=== PATIENT | female | born 1940 | race Asian ===

== ENCOUNTER → 2024-01-01 16:53 | Outpatient (REF) | payer OTHER, SELFPAY | LOC: RAD 16:53 | PROVIDERS: ATTENDING PHYSICIAN Nurse Practitioner | DX: M25.561 Pain in right knee (principal) | CPT/HCPCS: 73564 ==

== ENCOUNTER → 2024-04-22 10:41 | Outpatient (REF) | payer OTHER, SELFPAY | LOC: RAD 10:41 | PROVIDERS: ATTENDING PHYSICIAN Family Medicine; OTHER PHYSICIAN Orthopaedic Surgery | DX: M25.511 Pain in right shoulder (principal) | CPT/HCPCS: 73030 ==

== ENCOUNTER 2024-04-25 10:22 | Emergency (ER) | payer OTHER, SELFPAY ==
[2024-04-25 10:40] VITALS: BP 123/65
--- NOTE | 2024-04-25 11:53 | ED.GENMED ---
History of Present Illness
General
Chief Complaint: Fall
Source: patient
Time Seen by Provider: 04/25/24 11:34
History of Present Illness
History of Present Illness:
54-year-old female brought to the emergency by EMS for evaluation after suffering a fall at home. Patient was brushing her teeth when she turned away from the sink evidently lost her balance causing her to fall. She has pain in her left shoulder
and her coccyx. No head strike. No loss of consciousness. Patient is right-hand dominant.
Past History
Past History
ED Past Medical History: Hypercholesterolemia, IDDM and Other (sciatica)
ED Past Surgical History: Appendectomy
Social History
Tobacco: Non-smoker
Personal:
Living: alone
Family History
Family History: Other (Noncontributory)
Phy Exam
Physical Exam
Physical Exam:
General: Awake, Alert, Oriented X3. No acute distress.
Vitals: unremarkable
Head: Atraumatic
Eyes: Pupils equal, EOMI
Throat: Airway intact, no exudates
Neck: Trachea midline
Lungs: Clear and equal b/l
Heart: Regular rate, no murmurs
Abd: Soft, Nontender, No pulsatile mass
Neuro: non-focal
Skin: Warm, dry, no rash
Extremities: pulses equal b/l, no edema
Course
Orders/Labs/Results
Orders:
Orders
04/25/24 11:49
Morphine Sulfate 2 mg IV NOW STA
CR Humerus - Left Min 2 Views* Urgent
Comment:
Reason For Exam: pain after a fall
04/25/24 11:52
Pelvis, 1 or 2 Views CR [CR Pelvis - 1 Or 2 Views ] Urgent
Comment:
Reason For Exam: pain after a fall
04/25/24 13:05
Sling Left-Treatment ONCE
04/25/24 13:44
Morphine Sulfate 4 mg IV NOW STA
Vital Signs
Initial and Last Documented VS:
Initial Vital Signs
Temp Pulse Resp BP Pulse Ox
98.0 F 71 16 123/65 98
04/25/24 10:40 04/25/24 10:40 04/25/24 10:40 04/25/24 10:40 04/25/24 10:40
Last Documented Vital Signs
Temp Pulse Resp BP Pulse Ox
98.0 F 68 16 116/78 99
04/25/24 10:40 04/25/24 12:37 04/25/24 12:37 04/25/24 12:37 04/25/24 12:37
MDM/Problems Addressed
Differential Diagnosis Includes:
shoulder dislocation, prox humerus fx, pelvic fx
MDM/Problems Addressed:
Patient presents with left shoulder pain. X-ray shows a proximal humerus fracture. Neurovascularly intact. Patient [id number]. She has very supportive family. They would like to take her home. We discussed rehab or hospitalization for
supportive care with a feel they can provide excellent care at home. Patient be placed in a sling. She has used tramadol in the past for pain and it has helped her pain and she has not had significant side effects. Therefore we will continue with
this as the patient has had significant nausea and vomiting with opiates in the past.
*Radiology
Radiology exam reviewed: preliminary read by ED provider (Proximal humerus fracture)
*Pulse Oximetry
Patient hypoxic: no
*Critical Care Note
Total Time (30-74mins, 75-104mins- exclusive of procedures): Not Applicable
Patient Management
Social determinants of health affecting care: Strong social support
ED Attending Note
-
Portions of this chart may have been created with voice recognition software.� Occasional wrong word or��sound alike� substitutions may have occurred due to the inherent limitations of voice recognition software.
Discharge Plan
Departure
Patient Disposition: Home (Routine Discharge)
Date of Disposition: 04/25/24
Time of Disposition: 13:45
Patient with high blood pressure during this ER visit?: No
Condition: Good
Discharge Problem:
Fracture of proximal end of humerus
Instructions: Upper Arm Fracture ED
Prescriptions:
New
tramadol 50 mg tablet
50 mg PO TID PRN (Reason: Pain) Qty: 15 0RF
No Action
aspirin 81 MG tablet,chewable
81 mg PO HS
Levemir U-100 Insulin 1,000 UNITS/10 ML solution
8 units SC DAILY
Patient Comments:
morning
simvastatin 40 MG tablet
40 mg PO HS
levothyroxine 25 MCG tablet
25 mcg PO DAILY
PreserVision AREDS-2 1 EACH capsule
1 ea PO BID
insulin aspart U-100 [Novolog FlexPen U-100 Insulin] 100 unit/mL (3 mL) insulin pen
8 unit SC DAILY
Motegrity 2 mg Tablet
2 mg PO DAILY
magnesium citrate 125 mg Capsule
125 mg PO HS
gabapentin 300 MG capsule
300 mg PO TID
calcium carbonate-vitamin D3 [Calcium 600 + D(3)] 600 mg-10 mcg (400 unit) Tablet
1 tab PO DAILY
tramadol 50 mg Tablet
25 mg PO Q6HPRN PRN (Reason: moderate pain) Qty: 14 0RF
amoxicillin-pot clavulanate 875-125 mg Tablet
1 tab PO Q12 3 Days Qty: 6 0RF
Referrals:
Vinny Marquez MD [Active] -
Sanchez Marshall MD [Family Provider] -
Interventions
Interventions:
*Risk Screen - Suicide Last Done: 04/25/24 10:40
*General Assessment Last Done: 04/25/24 12:33
*Neglect/Abuse Screening Last Done: 04/25/24 10:40
ED- Fall Risk Assessment Last Done: 04/25/24 12:28
ED-Musculoskeletal Assessment Last Done: 04/25/24 12:28
ED- Neurological Assessment Last Done: 04/25/24 12:28
ED-Skin Assessment Last Done: 04/25/24 12:28
Discharge Date and Time
Print Language: IRISH
[2024-04-25] MEDS: MORPHINE SULFATE 2 MG IV (11:55)
[2024-04-25 12:37] VITALS: BP 116/78
[2024-04-25] MEDS: MORPHINE SULFATE 4 MG IV (13:53)
== END 2024-04-25 14:07 | disposition home or self-care (01) ==
LOC: EMR 10:22
PROVIDERS: EMERGENCY PHYSICIAN Emergency Medicine; FAMILY PHYSICIAN Family Medicine
DX: S42.292A Other displaced fracture of upper end of left humerus, initial encounter for closed fracture (principal); M53.3 Sacrococcygeal disorders, not elsewhere classified; W19.XXXA Unspecified fall, initial encounter; E78.00 Pure hypercholesterolemia, unspecified; E11.9 Type 2 diabetes mellitus without complications; Z79.4 Long term (current) use of insulin
CPT/HCPCS: 99284; 96374; 96376; 72170; 73060

== ENCOUNTER 2024-12-20 15:14 | Inpatient (IN) | payer OTHER, SELFPAY ==
[2024-12-20] VITALS (15 sets, daily range): BP systolic 95–143; BP diastolic 43–57; BMI 15.9
[2024-12-20 07:53] LABS: Glucose - Point of Care 313 mg/dl (70-99)
--- NOTE | 2024-12-20 07:57 | ED.GENMED ---
History of Present Illness
General
Chief Complaint: Weakness
Source: patient and family
Time Seen by Provider: 12/20/24 07:41
History of Present Illness
History of Present Illness:
The patient is an 85-year-old female who initially presented with fatigue and decreased oral intake beginning on the Sunday a week ago, following a dental procedure. According to her family member, she had a dental procedure on Sunday and received
local anesthesia, which seemed to exhaust her as she was tired subsequently. Since then, she has been progressively consuming less water and food and has been wanting to sleep more. She mainly gets up in the morning to brush her teeth and then
returns to bed shortly thereafter.
The patient also reports hallucinations, having seen a 'little girl' last night in her room. She mentions feeling weak but denies any pain other than in her shoulder, which had a previously broken shoulder related to a rotator cuff injury. The
shoulder pain had increased in the last few days. She reports urinating only twice yesterday, though her urine is described as yellow and of small amount. Her family member notes a five-pound weight loss, going from 85 lbs on the to 80 lbs
recently.
Current medications include phleophtaroxine, calcium, vitamin D, high-dose vitamins, gabapentin, Zocor, aspirin, and maxitrate. Metasapine was stopped recently
Past History
Past History
ED Past Medical History: Hypercholesterolemia, IDDM and Other (sciatica)
ED Past Surgical History: Appendectomy
Social History
Tobacco: Non-smoker
Personal:
Living: alone
Family History
Family History: Other (Noncontributory)
Phy Exam
Physical Exam
Physical Exam:
General: Awake, Alert, Oriented X3. No acute distress. Appears very thin, chronically ill
Vitals: unremarkable
Head: Atraumatic
Eyes: Pupils equal, EOMI
Throat: Airway intact, no exudates, dry mucosa
Neck: Trachea midline
Lungs: Clear and equal b/l
Heart: Regular rate, no murmurs
Abd: Soft, Nontender, No pulsatile mass
Neuro: Nonfocal
Skin: Warm, dry, no rash
Extremities: pulses equal b/l, no edema
Course
Orders/Labs/Results
Orders:
Orders
12/20/24 07:56
0.9% Sodium Chloride 500 ml [Nss] 500 ml IV BOLUS
12/20/24 07:57
Electrocardiogram (*1) Urgent
Reason for Study: Fatigue / Weakness
EKG- Treatment ONCE
12/20/24 08:27
B-Hydroxybutyrate Urgent
Comment: ADD ON
Complete Blood Count/With Diff Urgent
Comprehensive Metabolic Panel Urgent
Lipase Urgent
TSH Reflex To Free T4 Urgent
12/20/24 08:56
Albuterol Sulfate [Ventolin Nebules] 5 mg INH R NOW STA
Calcium Gluconate 1,000 mg IV NOW STA
Dextrose 50%-Water [Dextrose 50% Syringe] 12.5 grams IV [id number] PRN
Insulin Human Regular [Novolin R] 10 units IV NOW STA
Sodium Zirconium Cyclosilicate [Lokelma] 10 gram PO NOW STA
12/20/24 08:57
Bedside Glucose PRE IV Insulin- HyperK+ NOW
12/20/24 09:00
Add On- LAB Urgent
Tests Added?: beta hydroxybuterate
12/20/24 09:37
Venous Blood Gas Urgent
%Oxygen/Room Air: ra
12/20/24 09:38
0.9% Sodium Chloride 500 ml [Nss] 500 ml IV BOLUS
12/20/24 10:27
Bedside Glucose POST IV Insulin- HyperK+ Q1HX2,Q2HX2
12/20/24 10:30
Dextrose 5%/Water 1000 ml [D5w] 1,000 ml Sodium Bicarbonate 150 meq IV 150 mls/hr
12/20/24 11:22
Electrocardiogram (*1) Urgent
Reason for Study: Fatigue / Weakness
EKG- Treatment ONCE
12/20/24 12:01
Potassium Urgent
Comment: draw 2 hours after regular insulin IV administration
12/20/24 12:20
Bedside Glucose- Treatment Q1H
IV Insert/Care/Rem.- Treatment PRN
Reg Insulin 100 Units/100 ml [Novolin R Insulin Infusion] 100 units in 100 ml IV NOW
12/20/24 12:44
Reg Insulin 100 Units/100 ml [Novolin R Insulin Infusion] 100 units in 100 ml IV NOW
12/20/24 13:42
Basic Metabolic Panel Q2H
Urinalysis Reflex To Culture Urgent
Date Specimen was Collected: 12/20/24
Time Specimen was Collected: 13:40
Urine Microscopic Reflex Cult Urgent
12/20/24 14:04
Admit/Transfer Patient As Directed
Co-Sign Provider:
Level of Care: Inpatient admission
Assign to:: ICU
Physician / Group: [facility]
Diagnosis: DKA
Reason for Hospitalization: See progress note
Expected length of stay greater than two midnights?: Yes
ELOS- Estimated Length of Stay in days: 4
I certify the patient meets the requirements for IP care: Yes
12/20/24 14:05
PRN Pain Medication Management As Directed
May give lesser potent ordered pain med per pt: Yes
preference::
Protocol:: Medication orders for pain may be administered in a
manner that supports deferring to patient preference
when the pt is:
- Requesting an ordered lesser potent pain medication.
Least to most potent pain medications are defined
as: acetaminophen < NSAID < tramadol < opioids
(morphine, oxycodone, hydromorphone).
- Requesting a lesser dose of the same medication IF
ORDERED.
- Requesting a less intrusive route of administration
if both routes are prescribed by the provider (PO <
IV).
12/20/24 14:08
Code Status As Directed
Resuscitation Status: Full Code
12/20/24 14:30
Basic Metabolic Panel Q2H
12/20/24 16:30
Basic Metabolic Panel Q2H
Abnormal Lab Results
12/20/24 12/20/24 12/20/24
07:51 08:27 09:37
WBC 11.4 H 10^3/uL
(4.8-10.8)
MPV 10.8 H fL
(7.4-10.4)
Absolute Neuts (auto) 9.7 H 10^3/uL
(1.4-6.5)
Neutrophils % 85.3 H %
(42.2-75.2)
Lymphocytes % 11.3 L %
(20.5-51.1)
VBG pH 7.15 L*
(7.32-7.43)
VBG pCO2 27 L mmHg
(35-48)
VBG pO2 52 H mmHg
(30-50)
VBG HCO3 9.4 L mmol/L
(22-27)
Sodium
Potassium 7.3 H* mmol/L
(3.5-5.1)
Chloride 114 H mmol/L
(98-107)
Carbon Dioxide 9 L* mmol/L
(22-30)
BUN 83 H mg/dl
(7-17)
Creatinine 1.5 H mg/dL
(0.6-1.0)
Glucose 388 H mg/dl
(70-99)
AST 61 H U/L
(14-36)
ALT 84 H U/L
(0-35)
Urine Ketones
Ur Occult Blood Reflex
Urine RBC
Urine Bacteria (Reflex)
Urine Glucose
Urine Albumin (Reflex)
B-Hydroxybutyrate 0.53 H mmol/L
(0.02-0.27)
POC Glucose 313 H mg/dl
(7099)
12/20/24 12/20/24 12/20/24
10:13 11:59 13:32
WBC
MPV
Absolute Neuts (auto)
Neutrophils %
Lymphocytes %
VBG pH
VBG pCO2
VBG pO2
VBG HCO3
Sodium
Potassium
Chloride
Carbon Dioxide
BUN
Creatinine
Glucose
AST
ALT
Urine Ketones
Ur Occult Blood Reflex
Urine RBC
Urine Bacteria (Reflex)
Urine Glucose
Urine Albumin (Reflex)
B-Hydroxybutyrate
POC Glucose 297 H mg/dl 416 H mg/dl 387 H mg/dl
() (99) (70-99)
12/20/24 12/20/24
13:42 14:33
WBC
MPV
Absolute Neuts (auto)
Neutrophils %
Lymphocytes %
VBG pH
VBG pCO2
VBG pO2
VBG HCO3
Sodium 134 L mmol/L
(135-145)
Potassium 5.2 H D mmol/L
(3.5-5.1)
Chloride 111 H mmol/L
(98-107)
Carbon Dioxide
BUN 72 H mg/dl
(7-17)
Creatinine 1.3 H mg/dL
(0.6-1.0)
Glucose 485 H* mg/dl
(70-99)
AST
ALT
Urine Ketones 1+ A
(Negative)
Ur Occult Blood Reflex 2+ A
(Negative)
Urine RBC 3-6 A /HPF
(0-2)
Urine Bacteria (Reflex) Few A
(Negative)
Urine Glucose 3+ A
(Negative)
Urine Albumin (Reflex) 2+ A
(Neg - Trace)
B-Hydroxybutyrate
POC Glucose 382 H mg/dl
(70-99)
12/20/24 08:27
Vital Signs
Initial and Last Documented VS:
Initial Vital Signs
Pulse Resp BP Pulse Ox
83 18 131/51 100
12/20/24 07:07 12/20/24 07:07 12/20/24 07:07 12/20/24 07:07
Last Documented Vital Signs
Temp Pulse Resp BP Pulse Ox
97.8 F 94 22 143/57 100
12/20/24 08:35 12/20/24 14:00 12/20/24 14:00 12/20/24 14:00 12/20/24 12:30
MDM/Problems Addressed
Differential Diagnosis Includes:
The Differential Diagnosis includes, in no particular order and is not limited to:
1. Dehydration
2. Anemia
3. Electrolyte imbalance
4. Urinary tract infection
5. Depression
6. Medication side effects
7. Renal insufficiency
8. Hypoglycemia
9. Neurological conditions (e.g., transient ischemic attack)
10. Malnutrition
MDM/Problems Addressed:
The patient presents with severe dehydration, significantly elevated potassium levels, and high blood glucose. . Plans involve administering medication to reduce potassium levels, providing IV fluids, and hospital admission for comprehensive
management. Elevated potassium is likely related to impaired renal function exacerbated by dehydration. The patient is at risk for diabetic ketoacidosis, and insulin therapy has been withheld recently due to minimal food intake and historical risk
of hypoglycemia. Hospitalization will include monitoring of bloodwork and adjustment of treatment based on hydration status, renal function, and overall clinical improvement.
IV bicarbonate infusion started given her significant metabolic acidosis. Insulin infusion started as the dextrose from her bicarbonate drip is driving her glucose higher
No obvious infectious source hold on antibiotics.
*Pulse Oximetry
Patient hypoxic: no
Comment: 97
*EKG
Interpreted by ED Provider?: Yes
Interpretation: abnormal
Heart Rate: 79
Rate: normal
Rhythm: sinus
Gooding: normal axis
Interval: normal interval
QRS Pattern: normal QRS
Ischemia: other (Mildly peaked T waves, nonspecific T wave changes)
*Beaming Machine Operator Interpretation
Rate: normal
Interpretation: normal
Rhythm: sinus
*Critical Care Note
Total Time (30-74mins, 75-104mins- exclusive of procedures): 45 min
comment:
Critical care statement: A total of 45 minutes of critical care time was provided for this patient. This includes management of unstable vital signs, evaluation of the patient at bedside, reviewing the patient's pertinent medical records, discussion
with consultants, review of old EKGs and review of pertinent medical records. This time with separate from time utilized to perform the aforementioned documented procedures
ED Attending Note
-
Portions of this chart may have been created with voice recognition software.� Occasional wrong word or��sound alike� substitutions may have occurred due to the inherent limitations of voice recognition software.
Discharge Plan
Departure
Patient Disposition: Admit
Date of Disposition: 12/20/24
Time of Disposition: 09:39
Admit to: IMU
Presentation/result/management discussed w/ accepting MD/DO: Hospitalist
Condition: Serious
Discharge Problem:
Acute renal failure (ARF), Acute hyperkalemia, Acute dehydration
Prescriptions:
No Action
aspirin 81 MG tablet,chewable
81 mg PO QPM
levothyroxine 25 MCG tablet
25 mcg PO DAILY
PreserVision AREDS-2 1 EACH capsule
1 ea PO BID
insulin aspart U-100 [Novolog FlexPen U-100 Insulin] 100 unit/mL (3 mL) insulin pen
4 unit SC DAILY
Patient Comments:
family stopped giving her all insulins
prucalopride [Motegrity] 2 mg Tablet
2 mg PO DAILY
magnesium citrate 125 mg Capsule
125 mg PO QPM
gabapentin 300 MG capsule
300 mg PO BID
calcium carbonate-vitamin D3 [Calcium 600 + D(3)] 600 mg-10 mcg (400 unit) Tablet
1 tab PO DAILY
polyethylene glycol 3350 17 gram Powder In Packet
17 g PO QPM
simethicone 180 mg Capsule
180 mg PO DAILYPRN PRN (Reason: gas)
acetaminophen 650 mg Tablet Extended Release
1,300 mg PO Q8HPRN PRN (Reason: mild pain)
simvastatin 20 mg Tablet
20 mg PO QPM
Visbiome 112.5 billion cell Capsule
1 cap PO DAILY
Tresiba FlexTouch U-100
6 unit SC DAILY
Patient Comments:
family has stopped giving her insulins
Referrals:
Sanchez Marshall MD [Family Provider, Family Practice]
Interventions
Interventions:
*Risk Screen - Suicide Last Done: 12/20/24 07:52
*General Assessment Last Done: 12/20/24 07:07
*Neglect/Abuse Screening Last Done: 12/20/24 07:52
*ED- Fall Risk Assessment Last Done: 12/20/24 07:52
*ED COVID-19 Vaccine History Last Done: 12/20/24 07:52
ED- Cardiac Assessment Last Done: 12/20/24 07:52
ED- Neurological Assessment Last Done: 12/20/24 07:52
ED- Pulmonary Assessment Last Done: 12/20/24 07:52
Discharge Date and Time
Print Language: ITALIAN
[2024-12-20] MEDS: NSS 500 IV ×2 (08:26→10:08)
[2024-12-20 08:47] LABS: % Basophils 0.1 % (0-2); % Eosinophils 0.2 % (0-6); % Immature Granulocytes 0.4 % (0-0.5); % Lymphocytes 11.3 % (20.5-51.1); % Monocytes 2.7 % (1.7-9.3); % Neutrophils 85.3 % (42.2-75.2); Absolute Lymphocytes 1.3 10^3/uL (1.2-3.4); Absolute Monocytes 0.3 10^3/uL (0.1-0.6); Absolute Neutrophils 9.7 10^3/uL (1.4-6.5); Hematocrit 38.5 % (37.0-47.0); Hemoglobin 12.7 g/dL (12.0-16.0); Mean Corpuscular Hgb 29.7 pg (27.0-31.0); Mean Platelet Volume 10.8 fL (7.4-10.4); Nucleated Red Blood Cells % 0 %; Platelet Count 226 10^3/uL (130-400); Red Blood Cell Count 4.28 10^6/uL (4.20-5.40); Red Cell Dist. Width 12.5 % (11.5-14.5); White Blood Cell Count 11.4 10^3/uL (4.8-10.8)
[2024-12-20 08:50] LABS: ALT (SGPT) 84 U/L (0-35); AST (SGOT) 61 U/L (14-36); Albumin 4.4 g/dl (3.5-5.0); Alkaline Phosphatase 125 U/L (38-126); Blood Urea Nitrogen 83 mg/dl (7-17); Calcium 10.1 mg/dl (8.4-10.2); Carbon Dioxide 9 mmol/L (22-30); Chloride 114 mmol/L (98-107); Estimated Creatinine Clearance 16 ml/min; Glucose 388 mg/dl (70-99); Lipase 272 U/L (23-300); Potassium 7.3 mmol/L (3.5-5.1); Sodium 135 mmol/L (135-145); Total Bilirubin 0.6 mg/dl (0.2-1.3); Total Protein 7.2 g/dl (6.3-8.2); eGFR 33.73
[2024-12-20 09:16] LABS: TSH Reflex To Free T4 3.48 uIU/ml (0.47-4.68)
[2024-12-20] MEDS: LOKELMA 10 GRAM PO (09:19)
[2024-12-20] MEDS: CALCIUM GLUCONATE 1000 MG IV (09:20)
[2024-12-20] MEDS: NOVOLIN R 10 UNITS IV (09:21)
[2024-12-20] MEDS: VENTOLIN NEBULES 5 MG INH (09:42)
[2024-12-20 09:44] LABS: Venous Blood Gas HCO3 9.4 mmol/L (22-27); Venous Blood Gas O2 Sat % 84.1 %; Venous Blood Gas O2 Therapy RA; Venous Blood Gas pCO2 27 mmHg (35-48); Venous Blood Gas pO2 52 mmHg (30-50)
[2024-12-20 09:45] LABS: Venous Blood Gas pH 7.15 (7.32-7.43)
[2024-12-20 09:54] LABS: B-Hydroxybutyrate 0.53 mmol/L (0.02-0.27)
[2024-12-20 10:14] LABS: Glucose - Point of Care 297 mg/dl (70-99)
[2024-12-20] MEDS: SODIUM BICARBONATE 1150 MEQ IV ×2 (10:59→16:40)
[2024-12-20 12:01] LABS: Glucose - Point of Care 416 mg/dl (70-99)
[2024-12-20 12:17] LABS: Potassium 3.9 mmol/L (3.5-5.1)
--- NOTE | 2024-12-20 12:38 | CM ---
Met with patient at bedside in the ED with son and [id number]
IMM benefit explained; form signed @ 1235
Pharmacy verified: [facility] @ [id number]
Patient lives alone in multilevel home; 2 steps to enter; stair glide to bedroom and bath w/ shower stall, grab bar
PLOF: reported she was independent with ADLs (has a cleaning service); ambulates with Rollator; no longer driving; utilizes stair glide; Son and [id number] live nearby; visit her daily and readily available
When needed, her son will stay with her in her home
Family will transport
Discharge plan to be determined; showcase trimmer will monitor for discharge needs/services
[2024-12-20] MEDS: NOVOLIN R INSULIN INFUSION 100 IV (13:22)
[2024-12-20 13:35] LABS: Glucose - Point of Care 387 mg/dl (70-99)
[2024-12-20 13:57] LABS: Urine Albumin 2+ (Neg - Trace); Urine Bilirubin Negative (Negative); Urine Character Slightly Cloudy (Clear); Urine Color Yellow; Urine Glucose 3+ (Negative); Urine Ketone 1+ (Negative); Urine Leukocyte Negative (Negative); Urine Nitrite Negative (Negative); Urine Occult Blood 2+ (Negative); Urine Urobilinogen Negative (Neg - 1+)
[2024-12-20 14:14] LABS: Blood Urea Nitrogen 72 mg/dl (7-17); Calcium 9.2 mg/dl (8.4-10.2); Chloride 111 mmol/L (98-107); Estimated Creatinine Clearance 18 ml/min; Glucose 485 mg/dl (70-99); Potassium 5.2 mmol/L (3.5-5.1); Sodium 134 mmol/L (135-145); eGFR 40.05
--- NOTE | 2024-12-20 14:15 | HPS.HSE ---
Family Physician
-
Family Physician: Sanchez Marshall
Chief Complaint
-
Weakness
History of Present Illness
Patient brought in by son because of emesis.
History is from the patient and the son.
Sunday he felt like she was in dumps to improve the spirits he took her out for a spin.
Sunday she had weird dreams. Similar problem 6 months ago when she had a shoulder fracture. She lives alone and manages okay. On Sunday she felt her T was tasting weird and then the son realized that she did not have any teabags in it.
Sunday she had dental procedure. Postprocedure she was feeling tired and family felt it may be because of Novocain. Around 5 PM she bounced back.
Sunday to the summer agents she was eating less and was drinking less.
She has gastroparesis and lately she has been burping a lot. She had no bowel movement in 2 days.
All during this. She was tired. Yesterday she had an episode of emesis and again she had an episode of emesis after breakfast that is when they got her to the hospital.
During this time Because she was not feeling well and eating they skipped insulin on more than few occasions and her blood sugars and the CGM sarita are showing as high as 350. No hypoglycemias noted.
No abdominal pain.
No fever chills.
No shortness of breath or chest pain.
No dysuria or frequency of urine.
As the Levemir is no more covered through Medicare she is now on Tresiba and the transition happened last week.
Medical History
Past Medical History
Past Medical History: Reports Other (Hyperlipidemia, hypothyroidism, probable gastroparesis, weight loss, chronic pain, cholelithiasis and choledocholithiasis, chronic kidney disease, diabetes mellitus type 2, diabetic retinopathy, anemia of chronic
disease,)
Past Surgical History: Reports Other (ERCP in the past)
Social History
Tobacco: Non-smoker
Alcohol: None
Drug: None
Family History
Family History: Other (History of gallstones in her brother.)
Allergies / Home Medications
Allergies reflects when Allergies were last updated in [facility].
Home Medications with original date entered in [facility]
Allergy/Medication List:
Allergies
Allergy/AdvReac Type Severity Reaction Status Date / Time
codeine Allergy Unknown Unknown Verified 05/15/23 09:19
Home Medications
aspirin 81 mg chewable tablet 81 mg PO HS Blood Clot Prevention/Tx 11/18/18
insulin detemir U-100 100 unit/mL subcutaneous solution (Levemir U-100 Insulin) 8 units SC DAILY Diabetes 11/18/18
levothyroxine 25 mcg tablet 25 mcg PO DAILY Thyroid 08/04/19
simvastatin 40 mg tablet 40 mg PO HS High Cholesterol 08/04/19
vit C 250 mg-vit E 90 mg-zinc 40 mg-copper 1 [id number] capsule (PreserVision AREDS-2) 1 ea PO BID Supplement 08/04/19
calcium carbonate 600 mg-vitamin D3 10 mcg (400 unit) tablet (Calcium 600 + D(3)) 1 tab PO DAILY Supplement 05/15/23
gabapentin 300 mg capsule 300 mg PO TID Pain 05/15/23
insulin aspart U-100 100 unit/mL (3 mL) subcutaneous pen (Novolog FlexPen U-100 Insulin aspart) 8 unit SC DAILY Diabetes 05/15/23
magnesium citrate 125 mg capsule 125 mg PO HS Constipation 05/15/23
prucalopride 2 mg tablet (Motegrity) 2 mg PO DAILY Constipation 05/15/23
Review of Systems
-
A 12 point ROS was completed and negative except as noted: Yes
Physical Exam
Vital Signs
Vital Signs
Temp Pulse Resp BP Pulse Ox
97.8 F 94 22 143/57 100
12/20/24 08:35 12/20/24 14:00 12/20/24 14:00 12/20/24 14:00 12/20/24 12:30
Physical Exam
General: Comfortable
Respiratory: Clear and Non Labored Respirations; No Accessory Resp Muscle Use
Cardiac: S1/S2 and Regular Rhythm; No Tachycardia
GI: Soft, Non Tender, Non Distended and Normal Bowel Sounds
Musculoskeletal: No Edema
Neuro: AO x 3
Psych: Calm
Laboratory Results
-
12/20/24 08:27
Laboratory Results
Total Bilirubin 0.6 mg/dl (0.2-1.3) 12/20/24 08:27
AST 61 U/L (14-36) H 12/20/24 08:27
ALT 84 U/L (0-35) H 12/20/24 08:27
Alkaline Phosphatase 125 U/L (38-126) 12/20/24 08:27
Lipase 272 U/L (23-300) 12/20/24 08:27
Data Reviewed
-
Lab Data: Labs Reviewed by me
Impression/Plan
-
Diabetic ketoacidosis
Patient presents with progressive symptoms of weakness tiredness and upper GI symptoms including emesis since yesterday. No obvious precipitating factor other than a dental procedure on Sunday. No clinical signs of focal infection based on
history.
Gastroparesis is in play.
Admit to ICU and start on DKA protocol and optimize hyperglycemia and acidosis and evaluate her symptoms. If all her symptoms resolve may be all her symptoms are secondary to DKA from missed doses of insulin.
Hyperkalemia-in the setting of DKA and dehydration
Patient had emergent treatments in ER. Improved potassium noted. Continue to follow.
Metabolic acidosis with normal anion
Probably multifactorial including chronic kidney disease and DKA
Continue with IV insulin and IV bicarbonate and follow.
Chronic kidney disease stage III-creatinine at her baseline.
With metabolic acidosis and hyperkalemia consult nephrology
Gastroparesis-continue the home regimen
Follow GI symptoms after correction of hypoglycemia and acidosis and if continued GI symptoms will relook from GI standpoint.
Diabetes mellitus type 2-hold home insulin and follow on a DKA protocol
Full code
[2024-12-20 14:35] LABS: Urine Bacteria Few (Negative); Urine White Cell 0-2 /HPF (0-5)
[2024-12-20 14:35] LABS: Glucose - Point of Care 382 mg/dl (70-99)
--- NOTE | 2024-12-20 14:46 | W.CON.NEPH ---
Consultation
-
Date/Time Consultation Requested: 12/20/2024 2:45 PM
Date/Time Consultation Performed: 12/20/2024 245 PM
Requesting Provider: Dr. Waldron
Performing Provider: Dr. Burgos
Reason for Consultation: Chronic kidney disease/hyperkalemia/metabolic acidosis
Medical History
-
Chief Complaint: Hyperkalemia/CKD/metabolic acidosis
History of Present Illness:
The patient is an 84-year-old female with a history of CKD who maintains a baseline creatinine of 1.3. She has a history of diabetes for which she is maintained on insulin therapy. The patient is maintained on Neurontin for chronic diabetic
neuropathy and levothyroxine for hypothyroidism. Patient was brought in by son due to emesis. Sunday he felt like she was in dumps to improve the spirits he took her out for a spin. Sunday she had weird dreams. Similar problem 6 months ago when
she had a shoulder fracture. She lives alone and manages okay. On Sunday she felt her Tea was tasting weird and then the son realized that she did not have any teabags in it.
Sunday she had dental procedure. Postprocedure she was feeling tired and family felt it may be because of Novocain. Around 5 PM she bounced back. Sunday to the summer agents she was eating less and was drinking less. She has
gastroparesis and lately she has been burping a lot. She had no bowel movement in 2 days. Yesterday she had an episode of emesis and again she had an episode of emesis after breakfast that is when they got her to the hospital.
During this time Because she was not feeling well and eating they skipped insulin on more than few occasions and her blood sugars and the CGM sarita are showing as high as 350. She has beta hydroxy butyrate positive with blood sugar of 485 on
presentation. She had a significant metabolic acidosis and nephrology was consulted. Of note the patient also has chronic kidney disease but her creatinine is stable at 1.3. She also had associated hyperkalemia on admission with a potassium level
of 7.8 which was treated medically . She is now being admitted to the intensive care unit with DKA
Past Medical History
Appendectomy
Gastroparesis
Diabetes
CKD stage IIIa with baseline creatinine 1.3
Hypothyroidism
Dyslipidemia
Social History
Tobacco: Non-Smoker
Personal:
Living: Alone
Family History
Family History: Not Pertinent
Allergies / Home Medications
Allergy/AdvReac Type Severity Reaction Status Date / Time
codeine Allergy Unknown Verified 12/20/24 07:11
niacin Allergy Unknown Verified 12/20/24 07:11
�Medication �Instructions �Recorded �Confirmed �Type
aspirin 81 mg chewable tablet 81 mg PO QPM Blood Clot 11/18/18 12/20/24 History
Prevention/Tx
levothyroxine 25 mcg tablet 25 mcg PO DAILY Thyroid 08/04/19 12/20/24 History
vit C 250 mg-vit E 90 mg-zinc 40 1 ea PO BID Supplement 08/04/19 12/20/24 History
mg-copper 1 [id number]
capsule (PreserVision AREDS-2)
calcium 600 mg (as 1 tab PO DAILY Supplement 05/15/23 12/20/24 History
carbonate)-vitamin D3 10 mcg (400
unit) tablet (Calcium 600 + D(3))
gabapentin 300 mg capsule 300 mg PO BID Pain 05/15/23 12/20/24 History
insulin aspart U-100 100 unit/mL 4 unit SC DAILY Diabetes 05/15/23 12/20/24 History
(3 mL) subcutaneous pen (Novolog
FlexPen U-100 Insulin aspart)
magnesium citrate 125 mg capsule 125 mg PO QPM Constipation 05/15/23 12/20/24 History
prucalopride 2 mg tablet 2 mg PO DAILY Constipation 05/15/23 12/20/24 History
(Motegrity)
Lactobac no.2-Bifidobac no.1-S. 1 cap PO DAILY 12/20/24 12/20/24 History
thermo 112.5 billion cell capsule
(Visbiome)
Tresiba FlexTouch U-100 6 unit SC DAILY 12/20/24 12/20/24 History
acetaminophen 650 mg 1,300 mg PO Q8HPRN PRN mild pain 12/20/24 12/20/24 History
tablet,extended release
polyethylene glycol 3350 17 gram 17 g PO QPM 12/20/24 12/20/24 History
oral powder packet
simethicone 180 mg capsule 180 mg PO DAILYPRN PRN gas 12/20/24 12/20/24 History
simvastatin 20 mg tablet 20 mg PO QPM 12/20/24 12/20/24 History
Review of Systems
-
No abdominal pain.
No fever chills.
No shortness of breath or chest pain.
No dysuria or frequency of urine.
Chronic gastroparesis
Notable for fatigue lethargy
Decreased p.o. intake
Reported hallucination
5 pound weight loss over the past 2 to 3-day
Physical Exam
Vital Signs
Vital Signs
Temp Pulse Resp BP Pulse Ox
97.8 F 94 22 143/57 100
12/20/24 08:35 12/20/24 14:00 12/20/24 14:00 12/20/24 14:00 12/20/24 12:30
Lab Results
12/20/24 08:27
WBC 11.4 10^3/uL (4.8-10.8) H 12/20/24 08:27
RBC 4.28 10^6/uL (4.20-5.40) 12/20/24 08:27
Hgb 12.7 g/dL (12.0-16.0) 12/20/24 08:27
Hct 38.5 % (37.0-47.0) 12/20/24 08:27
Plt Count 226 10^3/uL (130-400) 12/20/24 08:27
eGFR 40.05 12/20/24 13:42
Albumin 4.4 g/dl (3.5-5.0) 12/20/24 08:27
Physical Exam
General: AOx3, Nontoxic , NAD, cachectic
HEENT: PERRL, EOMI, Anicteric, Conjunctivae Clear, Ear/Nose Intact, Hearing Normal, Oropharynx Clear/dry, Dentition Intact, Facial Symmetry, Neck Supple, Neck: Trachea Midline, No JVD and No Thyromegaly, no Bruits
Respiratory: Clear to auscultation bilaterally with normal lung exersion
Cardiac: S1/S2 and Regular Rate/Rhythm
Breast: Deferred by me
Abdomen: Soft, Nontender, Nondistended, Normal Bowel Sounds and No Hepatosplenomegaly
Rectal: Deferred by Provider
Genito-urinary: No Costovertebral Tenderness
Extremities: No Clubbing, No Cyanosis and No Edema
Skin: No Rash or open lesions
Neuro: Nonfocal/Grossly Intact, CN II-XII (Intact) and Strength (Musculoskeletal exam 5 out of 5 both upper and lower extremities)
Hematologic/Lymphatic: No Cervical Lymphadenopathy, No Submandibular Lymphadenopathy and No Supraclavicular Lymphadenopathy
Psych: Mood/afflect pleasant, Insight/judgement good and Appropriate
Vascular: plus 1 pedal and radial pulses
Data Reviewed
-
Medical Tests (Nuc Med, Echo etc): Other (EKG report reviewed normal sinus rhythm at 88 bpm with nonspecific T wave abnormality)
Labs: Labs Reviewed by me (BMP CBC urinalysis)
Old Records: Reviewed (Reviewed old old records in electronic medical record from 05/20/2023 creatinine 1.3)
Assessment/Plan
-
Impression:
Hyperglycemia/HHNK vs DKA
Metabolic acidosis (AG 12)
CKD stage IIIa (1.3)
Diabetes
Hypothyroidism
Hyperlipidemia
Plan:
- Treat hyperglycemia with insulin drip
- Lack of anion gap supports HHNK however patient has beta hydroxybutyrate positive and does have ketones in the urine
- Alkaline IV fluids provide for profound metabolic acidosis which is predominantly nongapped (150meq sodium bicarbonate per liter at 150cc/hr)
- Follow-up lactic acid
- Accurate I's and O's
- Creatinine is at baseline
- Hyperkalemia medically treated and should improve with insulin drip and correction of underlying metabolic acidemia
- Patient critically ill requiring insulin drip in the setting of life-threatening hyperkalemia and hyperglycemia
- 45 minutes critical care time spent with
--- NOTE | 2024-12-20 15:14 | CON.INTV ---
Consultation
Consultation Request
Date/Time Consultation Requested: 12/20/2024 - 1399
Date/Time Consultation Performed: 12/20/2024 - 1427
Requesting Provider: Dr. Waldron
Performing Provider: Dr. Robles
Reason for Consultation: DKA
Medical History
-
Chief Complaint: Vomiting
History of Present Illness:
84-year-old female non-smoker with a past medical history of stage 3b CKD, DM type II, chronic pain syndrome, hypertension, hypothyroidism, history of meningitis as a child (age 8), stroke (2019), nephrolithiasis and history of ARNOLD inhibitor
induced cough who presents with increased sleepiness with reduced oral intake and vomiting. Over the past 3 weeks the patient's been losing weight, has been eating less and been sleeping/lethargic over the past week. She had a episode of vomiting
yesterday and then threw up after breakfast and then this is what led the family to bring the patient to the hospital. The patient has been skipping her insulin on several occasions and her DEXA, has been showing that her sugars have been as high
as 350. Patient has no fevers, chills, abdominal pain, shortness of breath or chest pain. In the ER she was breathing at 18 breaths/min, heart rate 83, BP 131/51 and saturating 100% on room air. Labs showed mild leukocytosis to 11.4, potassium
7.3, serum bicarbonate level 9, blood gas pH 7.15 with pCO2 27, glucose 388, urinalysis with +1 ketones and beta hydroxybutyrate 0.53. CXR showed no focal parenchymal opacification. In the ER she was given a total of 1 L NS 0.9%, 10 units of
regular insulin, calcium gluconate, albuterol, Lokelma 10 g and then started on an insulin infusion with a bicarb drip. Patient admitted to the ICU and plant controller services consulted for additional management/recommendations.
When I saw the patient, she said that she is feeling much better overall. Currently on room air saturating 100% with BP 115/49 and heart rate 79. She currently denies chest pain, SOB, abdominal pain, nausea, fevers or chills
PMHx: Stage 3b CKD, DM type II, chronic pain syndrome, vitamin D deficiency, hypertension, nephrolithiasis, hypothyroidism, history of ARNOLD inhibitor induced cough, history of meningitis as a child (age 8), stroke (2019), gallstones, osteopenia,
history of gastroparesis, right shoulder arthritis, bilateral knee osteoarthritis, left shoulder fracture
PSHx: Appendectomy, spinal blocks, tooth extraction, ERCP with bile duct stone extraction, laparoscopic cholecystectomy with cholangiogram, right knee steroid injection
Past Medical History
Past Medical History: Other (Above as per HPI)
Past Surgical History: Other (Above as per HPI)
Social History
Tobacco: Non-smoker
Alcohol: None
Drug: None
Family History
Family History: Diabetes (Mother) and Other (Brother: Gallstones)
Allergies / Home Medications
Allergies
Allergy/AdvReac Type Severity Reaction Status Date / Time
codeine Allergy Unknown Verified 12/20/24 07:11
niacin Allergy Unknown Verified 12/20/24 07:11
Home Medications
�Medication �Instructions �Recorded �Confirmed �Last Taken �Type
aspirin 81 mg chewable tablet 81 mg PO QPM Blood Clot 11/18/18 12/20/24 12/19/24 History
Prevention/Tx
levothyroxine 25 mcg tablet 25 mcg PO DAILY Thyroid 08/04/19 12/20/24 12/19/24 History
vit C 250 mg-vit E 90 mg-zinc 40 1 ea PO BID Supplement 08/04/19 12/20/24 12/19/24 History
mg-copper 1 [id number]
capsule (PreserVision AREDS-2)
calcium 600 mg (as 1 tab PO DAILY Supplement 05/15/23 12/20/24 12/19/24 History
carbonate)-vitamin D3 10 mcg (400
unit) tablet (Calcium 600 + D(3))
gabapentin 300 mg capsule 300 mg PO BID Pain 05/15/23 12/20/24 12/19/24 History
insulin aspart U-100 100 unit/mL 4 unit SC DAILY Diabetes 05/15/23 12/20/24 12/17/24 History
(3 mL) subcutaneous pen (Novolog
FlexPen U-100 Insulin aspart)
magnesium citrate 125 mg capsule 125 mg PO QPM Constipation 05/15/23 12/20/24 12/19/24 History
prucalopride 2 mg tablet 2 mg PO DAILY Constipation 05/15/23 12/20/24 12/19/24 History
(Motegrity)
Lactobac no.2-Bifidobac no.1-S. 1 cap PO DAILY 12/20/24 12/20/24 12/19/24 History
thermo 112.5 billion cell capsule
(Visbiome)
Tresiba FlexTouch U-100 6 unit SC DAILY 12/20/24 12/20/24 12/17/24 History
acetaminophen 650 mg 1,300 mg PO Q8HPRN PRN mild pain 12/20/24 12/20/24 12/19/24 History
tablet,extended release
polyethylene glycol 3350 17 gram 17 g PO QPM 12/20/24 12/20/24 12/19/24 History
oral powder packet
simethicone 180 mg capsule 180 mg PO DAILYPRN PRN gas 12/20/24 12/20/24 Unknown History
simvastatin 20 mg tablet 20 mg PO QPM 12/20/24 12/20/24 12/19/24 History
Review of Systems
-
History Source: Patient
All other systems: Negative unless noted
Vitals / Labs / Diagnostic Testing
Vital Signs
Temp Pulse Resp BP Pulse Ox
97.7 F 94 20 124/45 98
12/20/24 19:39 12/20/24 15:00 12/20/24 15:00 12/20/24 15:00 12/20/24 16:10
Lab Data
12/20/24 08:27
12/20/24 19:54
Laboratory Results
06/14/25
16:04
PT 15.5 H
INR 1.20
APTT 26.4
Diagnostic Testing:
Physical Exam
-
HEENT: Normocephalic and Anicteric
Cardiovascular: S1/S2, Rub (n) and Peripheral Edema (n)
Respiratory: Clear, Wheeze (n), Rales (n), Rhonchi (n) and Non-Labored Respirations
GI: Soft, Non Distended, Non Tender and Normal Bowel Sounds
Neurology: Awake, Alert and Tremors (n)
Skin: Warm and Dry
General: Respiratory Distress (n), Comfortable, Fever (n) and Chills (n)
Assessment
-
Assessment: 84-year-old female non-smoker with a past medical history of stage 3b CKD, DM type II, chronic pain syndrome, hypertension, hypothyroidism, history of meningitis as a child (age 8), stroke (2019), nephrolithiasis and history of ARNOLD
inhibitor induced cough who presents with increased sleepiness with reduced oral intake and vomiting. Over the past 3 weeks the patient's been losing weight, has been eating less and been sleeping/lethargic over the past week. She had a episode of
vomiting yesterday and then threw up after breakfast and then this is what led the family to bring the patient to the hospital. The patient has been skipping her insulin on several occasions and her DEXA, has been showing that her sugars have been
as high as 350. Patient has no fevers, chills, abdominal pain, shortness of breath or chest pain. In the ER she was breathing at 18 breaths/min, heart rate 83, BP 131/51 and saturating 100% on room air. Labs showed mild leukocytosis to 11.4,
potassium 7.3, serum bicarbonate level 9, blood gas pH 7.15 with pCO2 27, glucose 388, urinalysis with +1 ketones and beta hydroxybutyrate 0.53. CXR showed no focal parenchymal opacification. In the ER she was given a total of 1 L NS 0.9%, 10
units of regular insulin, calcium gluconate, albuterol, Lokelma 10 g and then started on an insulin infusion with a bicarb drip. Patient admitted to the ICU and plant controller services consulted for additional management/recommendations.
Chronic conditions [employer]: Stage 3b CKD, DM type II, chronic pain syndrome, vitamin D deficiency, hypertension, nephrolithiasis, hypothyroidism, history of ARNOLD inhibitor induced cough, history of meningitis as a child (age 8), stroke (2019),
gallstones, osteopenia, history of gastroparesis, right shoulder arthritis, bilateral knee osteoarthritis, left shoulder fracture
Impression:
#DM type II complicated by DKA
#Leukocytosis (likely reactive)
#Metabolic acidosis with increased anion gap due to DKA and AL
#AL on CKD
#Chronic transaminitis
#Hyperlipidemia
#Hypothyroidism
#History of gastroparesis likely due to diabetes
#CKD
#Anemia causes
Plan:
- Continue insulin infusion with q1hr POCT BG checks, avoiding hypoglycemia
- q4hr BMP, avoiding hypokalemia
- Now that BG is <250, continue with D5-1/2NS and add 20 mEq KCl into the fluids
- Once anion gap is closed x 2 (12 or less) with serum bicarbonate level at 18 or greater, and ideally blood glucose <200, then she can be bridged off insulin drip at that time
- Patient takes 6 units of Tresiba daily however this may be too low to transition her once we are ready to bridge her off the insulin drip
- Would use the past 24-hour total insulin dosage and then take 20-30% of that to figure out the dosage of glargine to bridge her off the insulin drip with, otherwise if she is underdosed then we risk her going back into DKA once off the insulin gtt
- Consult diabetic [employer]CH MECH[employer]IC
- Now that serum bicarbonate level is approaching 15, no need for bicarb drip
- Trend pH and pCO2 with serial blood gasses
- Follow-up patient has a mild WBC, she is nontoxic-appearing and afebrile with no source of infection, hence would continue to monitor off antibiotics
- Trend WBC and temperature curve
- Maintain SpO2 >90-94%
- Aspiration precautions keeping HOB >30-45�
- prn nebulized bronchodilators - not currently bronchospastic
- Incentive spirometer encouraged 10x per hour for at least 4 hrs a day
- Maintain MAP>65
- Trend LFTs
- Trend sCr and monitor UOP
- Aim to keep MAP>65-70 to help perfuse kidneys
- Replete electrolytes with K>4, Mg>2
- Trend H/H and transfuse if needed to keep Hb>7g/dL; keep plt>20k, unless there is concern for bleeding then keep plt>50k
- Once patient is ready for PO diet, need to start ADA
- DVT ppx: HSQ
Continue ICU level of care for this critically ill patient
Critical care statement: A total of 37 minutes of critical care time was provided for this patient today. This includes management of unstable vital signs, evaluation of the patient at bedside, reviewing the patient's pertinent medical records
including radiographs, microbiology, laboratory evaluations, and discussion with primary team, consultants, pharmacy, nutrition, physical therapy, case management, charge nurse, critical care nursing, and respiratory therapy.
[2024-12-20 15:19] LABS: Blood Urea Nitrogen 70 mg/dl (7-17); Calcium 9.6 mg/dl (8.4-10.2); Carbon Dioxide 10 mmol/L (22-30); Chloride 112 mmol/L (98-107); Estimated Creatinine Clearance 18 ml/min; Glucose 439 mg/dl (70-99); Potassium 5.1 mmol/L (3.5-5.1); Sodium 135 mmol/L (135-145); eGFR 40.05
--- NOTE | 2024-12-20 15:20 | PTCARENOTE ---
arrived in ICU from ED via bed. Settled. Complete CHG bath. Skin assessed as noted, intact. Pleasant and cooperative. See admission documentation. Insullin and IV fluids infusing as prescribed. Denies need to void at present, call donnelly given
with instructions to use.
[2024-12-20 15:50] LABS: Glucose - Point of Care 408 mg/dl (70-99)
[2024-12-20 16:32] LABS: APTT 26.4 Sec (23.4-35.0); PT 15.5 Sec (11.4-14.6)
[2024-12-20 16:33] LABS: Blood Urea Nitrogen 69 mg/dl (7-17); Calcium 9.4 mg/dl (8.4-10.2); Carbon Dioxide 11 mmol/L (22-30); Chloride 112 mmol/L (98-107); Estimated Creatinine Clearance 18 ml/min; Glucose 343 mg/dl (70-99); Potassium 4.2 mmol/L (3.5-5.1); Sodium 136 mmol/L (135-145); eGFR 40.05
[2024-12-20 17:30] LABS: Glucose - Point of Care 248 mg/dl (70-99)
[2024-12-20] MEDS: D5/0.45%NACL 1000 IV (17:45)
[2024-12-20] MEDS: MAG-TAB SR 84 MG PO (17:58)
[2024-12-20] MEDS: LOW STRENGTH ASPIRIN 81 MG PO (17:58)
[2024-12-20] MEDS: MIRALAX 17 GRAMS PO (17:58)
--- NOTE | 2024-12-20 18:13 | PTCARENOTE ---
family remains bedside, IV fluids changed. labs resulted to Drs. Burgos and Chivo, no change in current plan. VS noted. Few ice chips and took pills easily.
[2024-12-20 18:35] LABS: Glucose - Point of Care 212 mg/dl (70-99)
[2024-12-20 19:03] LABS: Glucose - Point of Care 83 mg/dl (70-99)
--- NOTE | 2024-12-20 19:05 | PTCARENOTE ---
walking rounds, pt groggier than previously, arousable, speech clear but less than previously. Glucose 83, insulin gtt off pending MD notification/further direction. IV fluids continue as ordered. TT to Dr. Waldron with updates. Pt brighter, visiting
with son bedside, call donnelly in reach.
[2024-12-20] MEDS: HEPARIN 5000 UNITS SC (19:58)
[2024-12-20] MEDS: NEURONTIN 300 MG PO (19:58)
--- NOTE | 2024-12-20 20:24 | PTCARENOTE ---
Handoff report received from off going RN. Patient received in bed on D5W 1/2NS at 80 ml/hr. AAOx3 and able to make her needs known. MAEx4. Pt verbalized mild discomfort to her left shoulder from an old fracture. Plan of care for the shift reviewed
with the patient and her son, Robert. Questions encouraged. Scheduled medications reviewed. Patient and her son verbalized understanding. Pt's son, Robert vocalized concern regarding the patient's declining blood sugar. Labs drawn and sent. Pt's BG at
1900 was 83. Scheduled medications administered with 4 oz orange juice. NSR on the monitor. PIV. SpO2 at 100% on RA. +BS. The patient brushed her teeth. Pt encouraged to utilize the call donnelly prior to getting OOB to prevent falls and injuries.
Verbalized understanding. Bed alarm in use. Safety measures are maintained. Call donnelly and personal belongings are within reach.
[2024-12-20 20:28] LABS: Blood Urea Nitrogen 69 mg/dl (7-17); Calcium 9.7 mg/dl (8.4-10.2); Carbon Dioxide 14 mmol/L (22-30); Chloride 112 mmol/L (98-107); Estimated Creatinine Clearance 20 ml/min; Glucose 96 mg/dl (70-99); Potassium 4.2 mmol/L (3.5-5.1); Sodium 138 mmol/L (135-145); eGFR 44.08
[2024-12-20 20:50] LABS: Glucose - Point of Care 123 mg/dl (70-99)
[2024-12-20] MEDS: D5/0.45%NSS with KCL 20 MEQ 1000 IV (21:14)
[2024-12-20 21:41] LABS: Glucose - Point of Care 131 mg/dl (70-99)
[2024-12-20 22:36] LABS: Glucose - Point of Care 136 mg/dl (70-99)
[2024-12-20 23:40] LABS: Glucose - Point of Care 122 mg/dl (70-99)
[2024-12-21] VITALS (16 sets, daily range): BP systolic 99–139; BP diastolic 43–83; BMI 16.0
[2024-12-21 00:30] LABS: Glucose - Point of Care 111 mg/dl (70-99)
[2024-12-21 00:44] LABS: Blood Urea Nitrogen 67 mg/dl (7-17); Calcium 9.4 mg/dl (8.4-10.2); Carbon Dioxide 13 mmol/L (22-30); Chloride 113 mmol/L (98-107); Estimated Creatinine Clearance 21 ml/min; Glucose 132 mg/dl (70-99); Potassium 4.4 mmol/L (3.5-5.1); Sodium 137 mmol/L (135-145); eGFR 48.94
--- NOTE | 2024-12-21 01:24 | PTCARENOTE ---
0013-Patient reassessed. NSR on the monitor. Orientedx3. Labs drawn and sent.
0046: Lab resulted. Dr. Robles TT and made aware. Per Zeferino Robles MD, if 0400 bicarbonate level is less than 12, start bicarb drip.
0120: Patient rang and asked to be taken 'upstairs to my brothers.' The patient states that her brothers are looking down at her and that their are animal walking around the room. Patient points to the ceiling as she explained. Pt is upset that we
placed her in the 'basement'. PEr the patient., she thought that she was going to a nice hospital instead of the patient. Calming measures and reorienting utilized. Pt states that her name is 'baby' because she is the younger of her siblings. The
patient asked for her brothers to be called. Encouraged the patient to call her son as requested by Robert if the pt became confused. Pt called her son and son will come to see pt. Continued calming measures. Pt's happier as she talks about her
granddaughter. BG 115.
[2024-12-21 01:32] LABS: Glucose - Point of Care 115 mg/dl (70-99)
[2024-12-21] MEDS: NSS 250 IV ×2 (02:03→05:33)
[2024-12-21 02:45] LABS: Glucose - Point of Care 120 mg/dl (70-99)
[2024-12-21 03:36] LABS: Glucose - Point of Care 125 mg/dl (70-99)
[2024-12-21 04:34] LABS: Glucose - Point of Care 96 mg/dl (70-99)
[2024-12-21 04:49] LABS: Venous Blood Gas B.E. -10.3 mmol/L (-4 to +4); Venous Blood Gas HCO3 16.8 mmol/L (22-27); Venous Blood Gas O2 Sat % 99.3 %; Venous Blood Gas pCO2 41 mmHg (35-48); Venous Blood Gas pH 7.22 (7.32-7.43); Venous Blood Gas pO2 100 mmHg (30-50)
[2024-12-21] MEDS: D5/0.45%NSS with KCL 20 MEQ 1000 IV (04:50)
[2024-12-21 05:02] LABS: Hematocrit 29.7 % (37.0-47.0); Hemoglobin 10.1 g/dL (12.0-16.0); Mean Corpuscular Hgb 29.9 pg (27.0-31.0); Mean Corpuscular Volume 87.9 fL (81.0-99.0); Mean Platelet Volume 10.7 fL (7.4-10.4); Platelet Count 203 10^3/uL (130-400); Red Blood Cell Count 3.38 10^6/uL (4.20-5.40); Red Cell Dist. Width 12.4 % (11.5-14.5); White Blood Cell Count 7.5 10^3/uL (4.8-10.8)
[2024-12-21 05:19] LABS: Magnesium 2.2 mg/dl (1.6-2.3); Phosphorus 3.1 mg/dl (2.5-4.5)
[2024-12-21 05:20] LABS: Blood Urea Nitrogen 59 mg/dl (7-17); Calcium 8.9 mg/dl (8.4-10.2); Carbon Dioxide 15 mmol/L (22-30); Chloride 116 mmol/L (98-107); Estimated Creatinine Clearance 21 ml/min; Glucose 83 mg/dl (70-99); Potassium 4.2 mmol/L (3.5-5.1); Sodium 140 mmol/L (135-145); eGFR 48.94
[2024-12-21 05:35] LABS: Glucose - Point of Care 76 mg/dl (70-99)
[2024-12-21] MEDS: SYNTHROID 25 MCG PO (05:38)
--- NOTE | 2024-12-21 06:08 | PTCARENOTE ---
. The patient's SBP is wdl. However, the MAPs remained less thank 65. Shameka Hicks CRNP made aware. NSS bolus ordered x2. Patient and his family are at the bedside. Patient cleansed with CHG wipes. Intermittent confusion and hallucination
continues. Pt's easily redirected. No other changes.
O5:30 blood glucose 76 on insulin gtt and ivf. [place] juice provided to the patient.
[2024-12-21 06:29] LABS: Glucose - Point of Care 109 mg/dl (70-99)
[2024-12-21 07:29] LABS: Glucose - Point of Care 139 mg/dl (70-99)
[2024-12-21] MEDS: OCUVITE SOFTGEL 1 CAP PO (07:52)
[2024-12-21] MEDS: VISBIOME 1 CAP PO (07:52)
[2024-12-21] MEDS: NEURONTIN 300 MG PO ×2 (07:52→19:48)
[2024-12-21] MEDS: PROTONIX 40 MG PO (07:52)
[2024-12-21] MEDS: HEPARIN 5000 UNITS SC ×2 (07:53→19:48)
[2024-12-21] MEDS: NON-FORMULARY ITEM 2 MG PO (07:53)
--- NOTE | 2024-12-21 08:27 | W.PN.INTV ---
Today's Communication / Plan
Recommendations
Patient weaned off insulin drip and bridged with Lantus 12 units
Resume her home Lantus dose at 6 units and continue with pre-meal ISS
Trend WBC
Up OOB as tolerated
PT/OT
Trend serum HCO3 level while on bicarb gtt
Nephro on board - recs appreciated
Trend pH and pCO2 with occasional blood gas
Goal BG >100 and <180; diabetic STAVE MACHINE TENDER consulted
Patient is stable for downgrade out of ICU to telemetry. No additional recommendations at this time. Veterinary Pharmacologist/Pulmonary service will now sign off. Please reconsult if there are any additional questions/concerns, or if patient's respiratory
status deteriorates.
Assessment
-
Assessment: 84-year-old female non-smoker with a past medical history of stage 3b CKD, DM type II, chronic pain syndrome, hypertension, hypothyroidism, history of meningitis as a child (age 8), stroke (2019), nephrolithiasis and history of ARNOLD
inhibitor induced cough who presents with increased sleepiness with reduced oral intake and vomiting. Over the past 3 weeks the patient's been losing weight, has been eating less and been sleeping/lethargic over the past week. She had a episode of
vomiting yesterday and then threw up after breakfast and then this is what led the family to bring the patient to the hospital. The patient has been skipping her insulin on several occasions and her DEXA, has been showing that her sugars have been
as high as 350. Patient has no fevers, chills, abdominal pain, shortness of breath or chest pain. In the ER she was breathing at 18 breaths/min, heart rate 83, BP 131/51 and saturating 100% on room air. Labs showed mild leukocytosis to 11.4,
potassium 7.3, serum bicarbonate level 9, blood gas pH 7.15 with pCO2 27, glucose 388, urinalysis with +1 ketones and beta hydroxybutyrate 0.53. CXR showed no focal parenchymal opacification. In the ER she was given a total of 1 L NS 0.9%, 10
units of regular insulin, calcium gluconate, albuterol, Lokelma 10 g and then started on an insulin infusion with a bicarb drip. Patient admitted to the ICU and geotechnical laboratory technician services consulted for additional management/recommendations.
Chronic conditions HISTOLOGICAL ILLUSTRATOR: Stage 3b CKD, DM type II, chronic pain syndrome, vitamin D deficiency, hypertension, nephrolithiasis, hypothyroidism, history of ARNOLD inhibitor induced cough, history of meningitis as a child (age 8), stroke (2019),
gallstones, osteopenia, history of gastroparesis, right shoulder arthritis, bilateral knee osteoarthritis, left shoulder fracture
Impression:
#DM type II (uncontrolled: HbA1c 8.3 on 12/21/2024) complicated by DKA - DKA now resolved
#Leukocytosis (likely reactive) -now resolved
#Metabolic acidosis with increased anion gap due to DKA and AL -acidosis at this point is likely due to starvation ketoacidosis
#AL on CKD
#Chronic transaminitis
#Hyperlipidemia
#Hypothyroidism
#History of gastroparesis likely due to diabetes
#CKD
#Anemia causes
Plan:
- Patient now weaned off insulin drip, and she was given 12 units Lantus this morning and then changed to AC ISS with lantus in AM
- Start ADA
- Per the patient's son, the patient has had difficulty maintaining her diet and there is definitely a component of chronic starvation ketosis/ketoacidosis which is likely bringing down her serum bicarbonate level
- Nephrology on board as she recently had an AL which is now improved � continue bicarbonate drip and continue trending bicarb level + blood gas to assure pH + pCO2 remained stable
- Patient takes 6 units of Tresiba daily at home plus ISS
- Consult diabetic STAVE MACHINE TENDER
- Although patient had a mild WBC, she is nontoxic-appearing and afebrile with no source of infection, hence would continue to monitor off antibiotics
- WBC today is now normal at 7.5
- Trend WBC and temperature curve
- Maintain SpO2 >90-94%
- Aspiration precautions keeping HOB >30-45�
- prn nebulized bronchodilators - not currently bronchospastic
- Incentive spirometer encouraged 10x per hour for at least 4 hrs a day
- Maintain MAP>65
- Trend LFTs
- Trend sCr and monitor UOP
- Aim to keep MAP>65-70 to help perfuse kidneys
- PT/OT
- Replete electrolytes with K>4, Mg>2
- Trend H/H and transfuse if needed to keep Hb>7g/dL; keep plt>20k, unless there is concern for bleeding then keep plt>50k
- DVT ppx: HSQ
Patient is stable for downgrade out of ICU to telemetry. No additional recommendations at this time. Veterinary Pharmacologist/Pulmonary service will now sign off. Thank you for allowing us to be involved in the care of this patient. Please reconsult if there
are any additional questions/concerns, or if patient's respiratory status deteriorates.
Total time spent today was 58 minutes for this encounter. Time includes reviewing laboratory test/imaging results, reviewing pertinent medical records, obtaining and reviewing medical history, performing an appropriate exam, ordering medications,
tests and procedures. Time also includes documentation of this encounter, coordinating patient care and communicating with other healthcare professionals. Total time does not include separately billed tests performed on this date of service.
Subjective Dataa
Subjective Data
Date of Service:
Date of Service: December 21, 2024
Chief Complaint: Veterinary Pharmacologist Follow Up
Subjective:
Pt seen and evaluated this AM. HR 71 and breathing comfortably on room air. Patient's son, Robert, present at bedside. Patient feels much better today overall with increased energy and denies abdominal pain, nausea, shortness of breath, fevers or
chills. Insulin drip stopped earlier this morning.
Review of Systems
General: Other (Negative unless mentioned above)
Objective Data
Data Reviewed
Vital Signs / I&O / Oxygen:
Vital Signs
Temp Pulse Resp BP Pulse Ox
97.5 F 80 15 119/63 100
12/21/24 07:00 12/21/24 10:00 12/21/24 10:00 12/21/24 09:00 12/21/24 08:15
Intake and Output
12/20/24 12/21/24 12/22/24
06:59 06:59 06:59
Intake Total 2611.0 / 2837.0 780 / 780
Output Total 1050 / 1050 600 / 600
Balance 1561.0 / 1787.0 180 / 180
SaO2 100
Nasal Cannula flow liters per 1
minute
Physical Exam
General: Respiratory Distress (negative), Comfortable, Chills (negative) and Sweats (negative)
HEENT: Normocephalic and Anicteric
Cardiovascular: S1-S2 and Peripheral Edema (negative)
Respiratory: Wheeze (negative), Crackles (negative), Rhonchi (negative) and Non-Labored Respirations
GI: Soft, Non Distended, Non Tender and Normal Bowel Sounds
Neurology: Awake, Alert and Tremors (negative)
Skin: Warm, Dry, Cyanosis (negative) and Jaundice (negative)
Labs/Micro/Reports
Lab Data
12/21/24 04:41
12/21/24 12:00
Laboratory Results
12/20/24
16:04
PT 15.5 H
INR 1.20
APTT 26.4
--- NOTE | 2024-12-21 08:27 | PTCARENOTE ---
recd 0715 family and handoff at bedside, insulin infusing per titration, fluids and gentle fluid bolus. presently pleasant oriented cooperative and interactive. positioned for comfort. tolerating room air and few sips water. labs pending.
[2024-12-21 08:28] LABS: Glucose - Point of Care 175 mg/dl (70-99)
[2024-12-21 08:43] LABS: Blood Urea Nitrogen 51 mg/dl (7-17); Calcium 8.3 mg/dl (8.4-10.2); Carbon Dioxide 16 mmol/L (22-30); Chloride 117 mmol/L (98-107); Estimated Creatinine Clearance 26 ml/min; Glucose 239 mg/dl (70-99); Potassium 5.3 mmol/L (3.5-5.1); Sodium 139 mmol/L (135-145); eGFR > 60.00
--- NOTE | 2024-12-21 09:13 | W.PN.HOSP.TC ---
Today's Communication/Plan
-
DC IV insulin.
Start on long-acting home insulin regimen. Start on a sliding scale insulin.
Start on diabetic diet.
Continue with IV bicarbonate per nephrology
Obtain a CT of the head.
Assessment / Plan
Assessment / Plan
Diabetic ketoacidosis
Patient presents with progressive symptoms of weakness tiredness and upper GI symptoms including emesis since yesterday. No obvious precipitating factor other than a dental procedure on Sunday. No clinical signs of focal infection based on
history.
DKA based on acidosis and elevated beta-hydroxy butyric acid in labs, and missing doses of insulin. Her AG was normal on admission.
Her acidosis is probably multifactorial -hyperglycemia, chronic kidney disease, and rule out type IV RTA
Resolved GI symptoms. Improved hyperglycemia. DC IV insulin.
Start on a diabetic diet.
Continue with the long-acting Tresiba but hold the mealtime insulin due to appetite issues. Cover with a sliding scale insulin.
optimize hyperglycemia and acidosis and evaluate her GI symptoms. If all her symptoms resolve may be all her symptoms are secondary to DKA from missed doses of insulin.
Hyperkalemia-in the setting of DKA and dehydration
Patient had emergent treatments in ER. Improved potassium noted. Continue to follow.
With the continued acidosis and rise of potassium again rule out type IV RTA
Metabolic acidosis with normal anion
Probably multifactorial including chronic kidney disease and DKA
Continue with IV insulin and IV bicarbonate and follow.
Acute kidney injury chronic kidney disease stage III
Probably element of dehydration. Creatinine improved from 1.2-0.9 with fluid support
Gastroparesis-continue the home regimen
Follow GI symptoms after correction of hyperglycemia and acidosis and if continued GI symptoms will relook from GI standpoint.
Anorexia
Associated weight loss
Based on [email or web address] weight data she did lose 21 pounds.
Mild transaminitis noted. Patient. Had gallbladder disease and had a cholecystectomy.
Repeat LFTs in the worsening and if increasing and appetite remains poor abdominal imgaing in order.
Confusion
Patient was confused and had hallucination last night. She had some hallucination at home as well. She was not her usual self since onset of her symptoms.
This morning she is alert and oriented immediate recall was good.
Suspect encephalopathy. Nonfocal neurologically.
Obtain a CT head to rule out any underlying structural abnormalities
Diabetes mellitus type 2-hold home insulin and follow on a DKA protocol
Full code
Tx to tele
Discussed with son at bedside discussed with SUPERVISOR [employer] DEPARTMENT.
Level 3 time
Anticipated Discharge: > 48 hours
Subjective/Interval History
-
Date of Service: December 21, 2024
This morning she is alert oriented to month in the ER. She did not realize she is in the hospital. [facility]. Last night events noted.
Son also noticed hallucinations at the beginning of the illness.
Today her immediate recall is 3 out of 3.
Denies any headache, limb weakness or sensory disturbances in the arms or legs.
No nausea or vomiting today but still not much appetite.
Anorexia and some food aversion is a chronic issue for her. She has history of gastroparesis and chronic constipation.
Denies shortness of breath or chest pain.
No fever or chills.
Objective Data
-
Labs:
Laboratory Results
12/21/24 12/21/24 12/21/24
00:13 04:41 08:09
WBC 7.5
Hgb 10.1 L D
Hct 29.7 L
Plt Count 203
Sodium 137 140 139
Potassium 4.4 4.2 5.3 H D
Chloride 113 H 116 H 117 H
Carbon Dioxide 13 L* 15 L 16 L
BUN 67 H 59 H 51 H
Creatinine 1.1 H 1.1 H 0.9
Glucose 132 H 83 239 H
Calcium 9.4 8.9 8.3 L
12/21/24
12:00
WBC
Hgb
Hct
Plt Count
Sodium Pending
Potassium Pending
Chloride Pending
Carbon Dioxide Pending
BUN Pending
Creatinine Pending
Glucose Pending
Calcium Pending
Vital Signs:
Vital Signs
Temp Pulse Resp BP Pulse Ox
97.5 F 76 16 109/50 100
12/21/24 07:00 12/21/24 07:15 12/21/24 07:15 12/21/24 07:00 12/21/24 06:15
I&O
12/20/24 12/21/24 12/22/24
06:59 06:59 06:59
Intake Total 2611.0 / 2837.0 780 / 780
Output Total 1050 / 1050
Balance 1561.0 / 1787.0 780 / 780
Physical Exam
-
General: Comfortable
HEENT: Moist Mucous Membranes
Respiratory: Clear to Auscultation and Non Labored Respirations; Negative Accessory Resp Muscle Use
Cardiac: Regular Rhythm and S1/S2; Negative Tachycardic
GI: Soft, Nontender, Nondistended and Normal Bowel Sounds
Neuro: Awake, Alert, Oriented and No Motor Deficits; Negative Slurred Speech or Facial Droop
Psych: Calm; Negative Confused (apart from disorientation to place) or Agitated
Data Reviewed
-
Labs: Labs Reviewed by me
--- NOTE | 2024-12-21 09:15 | W.PN.NEPH.PH ---
Today's Communication / Plan
-
Alkaline IV fluid
Follow BMP
Assessment/Plan
-
Impression:
Hyperglycemia/HHNK vs DKA
Metabolic acidosis (AG 12)
CKD stage IIIa (1.3)
Diabetes
Hypothyroidism
Hyperlipidemia
Plan:
- Metabolic acidemia persists (AG at 6, insulin off
- Lack of anion gap supports HHNK however patient has beta hydroxybutyrate positive and does have ketones in the urine
-Will continue alkaline IV fluids for persistent acidosis
- Follow-up lactic acid
- Accurate I's and O's
- Creatinine better then baseline
- Hyperkalemia medically treated and should improve with insulin drip and correction of underlying metabolic acidemia
-Patient for CT of head due to underlying hallucinations and change in mental status
-
-
Date of Service: December 21, 2024
CC / HPI / ROS
-
Chief Complaint:
Metabolic acidosis
CKD
History of Present Illness:
Hemodynamically more stable
Metabolic acidosis improving but persist on sodium bicarbonate drip
Creatinine currently normalized and lower than baseline
Review of Systems:
non oliguric ~ 1liter
no fevers
weights stable
Labs
-
Labs:
WBC 7.5 10^3/uL (4.8-10.8) 12/21/24 04:41
RBC 3.38 10^6/uL (4.20-5.40) L 12/21/24 04:41
Hgb 10.1 g/dL (12.0-16.0) L D 12/21/24 04:41
Hct 29.7 % (37.0-47.0) L 12/21/24 04:41
Plt Count 203 10^3/uL (130-400) 12/21/24 04:41
eGFR > 60.00 12/21/24 08:09
Phosphorus 3.1 mg/dl (2.5-4.5) 12/21/24 04:41
Albumin 4.4 g/dl (3.5-5.0) 12/20/24 08:27
Physical Exam
-
Vital Signs:
Vital Signs
Temp Pulse Resp BP Pulse Ox
97.5 F 76 16 109/50 100
12/21/24 07:00 12/21/24 07:15 12/21/24 07:15 12/21/24 07:00 12/21/24 06:15
Cardiovascular:: Regular rate and rhythm
Respiratory:: Bilateral: CTA
Lung Excursion:: Normal
Abdomen:: Nontender and Soft
Bowel Sounds:: Normal
Extremity Edema:: None: Bilateral:
Hammer Catheter: No
[2024-12-21 09:49] LABS: Glucose - Point of Care 183 mg/dl (70-99)
--- NOTE | 2024-12-21 09:59 | PTCARENOTE ---
back from CT scan, family provided small meal, awaiting insulin pen, presently sitting in chair no c/o. awaiting tele bed.
[2024-12-21 10:11] LABS: Glycohemoglobin (HgbA1c) 8.3 % (4.0-5.6)
[2024-12-21] MEDS: SODIUM BICARBONATE 1150 MEQ IV (10:28)
[2024-12-21] MEDS: NOVOLOG FLEXPEN-LOW RESISTANCE 1 UNITS SC ×2 (10:28→13:41)
[2024-12-21] MEDS: LANTUS 0.12 UNITS SC (11:09)
[2024-12-21 11:13] LABS: Glucose - Point of Care 160 mg/dl (70-99)
[2024-12-21] MEDS: D5/0.45%NSS with KCL 20 MEQ IV ×2 (11:30→17:46)
--- NOTE | 2024-12-21 12:52 | PTCARENOTE ---
walked into bathroom, gait steady, partial care, voided, back to chair. aware of plans for day. family bedside.
[2024-12-21 13:45] LABS: Glucose - Point of Care 177 mg/dl (70-99)
[2024-12-21 15:48] LABS: Glucose - Point of Care 277 mg/dl (70-99)
[2024-12-21] MEDS: NOVOLOG FLEXPEN-LOW RESISTANCE 3 UNITS SC (15:52)
[2024-12-21] MEDS: LOW STRENGTH ASPIRIN 81 MG PO (17:41)
[2024-12-21] MEDS: MAG-TAB SR 84 MG PO (17:41)
[2024-12-21] MEDS: MIRALAX 17 GRAMS PO (17:41)
--- NOTE | 2024-12-21 18:00 | PTCARENOTE ---
no change, at times a little irritable with family, doesn't quite grasp downgrade status, slept a little and awakened much more pleasant, cheerful, interactive, oriented. OOB to bathroom, presently back in bed. very very small appetite for dinner.
glucoses noted.
--- NOTE | 2024-12-21 20:00 | PTCARENOTE ---
Resumed care of pt sitting up in bed chatting with son at bedside. Pt AAOx3, forgetful at times. HR in the 70's in NSR on the monitor. POX 100% on RA. Lungs clear. + bowel, round abd. Poor appetite. Pt ambulating with assistance to bathroom when
needed. Skin intact. Left wrist int infusing Sterile water with bicarb @70ml/hr. Left AC capped. Palpable peripheral pulses present. Bed alarm in place for pt safety. NO issues to report at this time. Will continue to monitor.
[2024-12-21 21:31] LABS: Glucose - Point of Care 111 mg/dl (70-99)
[2024-12-22] VITALS (8 sets, daily range): BP systolic 95–131; BP diastolic 44–73; PULSE 79–90; O2SAT 100; BMI 17.0
--- NOTE | 2024-12-22 | PTCARENOTE ---
Pt with inc episode of loose stool. Pt assisted to bathroom, pt had diarrhea. Pt cleaned up and assisted back to bed. No other changes in assessment noted at this time. Will continue to monitor.
[2024-12-22 01:20] LABS: Glucose - Point of Care 98 mg/dl (70-99)
[2024-12-22] MEDS: SODIUM BICARBONATE 1150 MEQ IV (03:39)
[2024-12-22] MEDS: DEXTROSE 50% SYRINGE 12.5 GRAMS IV (04:08)
[2024-12-22 04:10] LABS: Glucose - Point of Care 55 mg/dl (70-99)
[2024-12-22 04:10] LABS: Venous Blood Gas B.E. -0.3 mmol/L (-4 to +4); Venous Blood Gas HCO3 26.3 mmol/L (22-27); Venous Blood Gas O2 Sat % 94.5 %; Venous Blood Gas pCO2 51 mmHg (35-48); Venous Blood Gas pH 7.32 (7.32-7.43); Venous Blood Gas pO2 67 mmHg (30-50)
--- NOTE | 2024-12-22 04:15 | PTCARENOTE ---
Pt accidently pulled out peripheral IV sites. Significant bleeding noted, pressure dressing applied. New 20G INT placed in right forearm, IVF infusing as ordered. Pt drowsy and not as responsive as prior assessment. Bedside glucose obtained, 55,
Hypoglycemic protocol initiated. 15min repeat bedside glucose 103. Pt easily arousable. Vital signs stable. No other changes in assessment noted at this time. Will continue to monitor.
[2024-12-22 04:26] LABS: Glucose - Point of Care 103 mg/dl (70-99)
[2024-12-22 04:27] LABS: Hematocrit 29.9 % (37.0-47.0); Hemoglobin 10.2 g/dL (12.0-16.0); Mean Corp Hgb Conc. 34.1 g/dL (33.0-37.0); Mean Corpuscular Hgb 29.8 pg (27.0-31.0); Mean Corpuscular Volume 87.4 fL (81.0-99.0); Platelet Count 196 10^3/uL (130-400); Red Blood Cell Count 3.42 10^6/uL (4.20-5.40); Red Cell Dist. Width 12.6 % (11.5-14.5); White Blood Cell Count 7.9 10^3/uL (4.8-10.8)
[2024-12-22 05:18] LABS: ALT (SGPT) 109 U/L (0-35); AST (SGOT) 130 U/L (14-36); Albumin 3.4 g/dl (3.5-5.0); Alkaline Phosphatase 105 U/L (38-126); Blood Urea Nitrogen 46 mg/dl (7-17); Calcium 8.9 mg/dl (8.4-10.2); Carbon Dioxide 24 mmol/L (22-30); Chloride 112 mmol/L (98-107); Estimated Creatinine Clearance 26 ml/min; Glucose 57 mg/dl (70-99); HDL Cholesterol 48 mg/dl; LDL Cholesterol, Calculated 68 mg/dl; Phosphorus 3.3 mg/dl (2.5-4.5); Potassium 4.7 mmol/L (3.5-5.1); Sodium 142 mmol/L (135-145); Total Bilirubin 0.3 mg/dl (0.2-1.3); Total Cholesterol 135 mg/dl (50-199); Total Protein 5.7 g/dl (6.3-8.2); Triglyceride 99 mg/dl (10-149); Very Low Density Lipoprotein 19 mg/dl (0-30); eGFR > 60.00
[2024-12-22] MEDS: SYNTHROID 25 MCG PO (05:58)
[2024-12-22 06:08] LABS: Glucose - Point of Care 69 mg/dl (70-99)
[2024-12-22 06:33] LABS: Glucose - Point of Care 81 mg/dl (70-99)
[2024-12-22] MEDS: NOVOLOG FLEXPEN-LOW RESISTANCE SC ×2 (08:03→11:38)
[2024-12-22 08:10] LABS: Glucose - Point of Care 101 mg/dl (70-99)
[2024-12-22] MEDS: HEPARIN 5000 UNITS SC ×2 (09:27→20:05)
[2024-12-22] MEDS: OCUVITE SOFTGEL 1 CAP PO (09:28)
[2024-12-22] MEDS: NEURONTIN 300 MG PO ×2 (09:28→20:05)
[2024-12-22] MEDS: PROTONIX 40 MG PO (09:28)
[2024-12-22] MEDS: NON-FORMULARY ITEM 2 MG PO (09:28)
[2024-12-22] MEDS: VISBIOME 1 CAP PO (09:28)
--- NOTE | 2024-12-22 09:56 | PTCARENOTE ---
Pt rec'd from night RN at 07:15, assisted to walk into bathroom by family. Pt seated in chair afterward but then returned back into bed due to not sleeping well overnight, per family. Pt declines breakfast this am -Lantus dose refused by family due
to ongoing hypoglycemia overnight. Patient not eating well. TT sent to hospital educator to update. Plan discussed with patient and family. meds and assessment as documented, pt is AOx3 pleasant and cooperative, bed assigned for patient on .
Pt and family updated. Call donnelly in reach, safe environment continues, son and DIL at bedside.
--- NOTE | 2024-12-22 10:18 | PTCARENOTE ---
Report given to AMOS Ross on 3W. Dr. Urbina at bedside.
--- NOTE | 2024-12-22 11:24 | CM ---
Patient transferred to Room #329.
--- NOTE | 2024-12-22 11:30 | TRANSFER ---
pt arrives from ICU. AAOX3, vss, able to ambulate with assistance into room. family accompanying pt. no concerns at the moment. plan of care continues to be followed.
[2024-12-22 11:39] LABS: Glucose - Point of Care 129 mg/dl (70-99)
--- NOTE | 2024-12-22 14:28 | W.PN.NEPH.PH ---
Today's Communication / Plan
-
follow labs. d/c ivf
Assessment/Plan
-
Impression:
Hyperglycemia/HHNK vs DKA
Metabolic acidosis (AG 12)
CKD stage IIIa (1.3)
Diabetes
Hypothyroidism
Hyperlipidemia
Plan:
- Metabolic acidemia resolved , d/c iv bicarb ivf
- Creatinine better then baseline
- Hyperkalemia resolved
encourage solute intake
follow labs
after d/c f/u Dr Abad
-
-
Date of Service: December 22, 2024
CC / HPI / ROS
-
Chief Complaint:
Metabolic acidosis
CKD
History of Present Illness:
Hemodynamically more stable
Metabolic acidosis improved
Creatinine currently normalized and lower than baseline 0.9
Review of Systems:
no fevers
weights stable
Labs
-
Labs:
WBC 7.9 10^3/uL (4.8-10.8) 12/22/24 03:55
RBC 3.42 10^6/uL (4.20-5.40) L 12/22/24 03:55
Hgb 10.2 g/dL (12.0-16.0) L 12/22/24 03:55
Hct 29.9 % (37.0-47.0) L 12/22/24 03:55
Plt Count 196 10^3/uL (130-400) 12/22/24 03:55
Sodium 142 mmol/L (135-145) 12/22/24 03:55
Potassium 4.7 mmol/L (3.5-5.1) 12/22/24 03:55
Chloride 112 mmol/L (98-107) H 12/22/24 03:55
Carbon Dioxide 24 mmol/L (22-30) 12/22/24 03:55
BUN 46 mg/dl (7-17) H 12/22/24 03:55
Creatinine 0.9 mg/dL (0.6-1.0) 12/22/24 03:55
eGFR > 60.00 12/22/24 03:55
Glucose 57 mg/dl (70-99) L 12/22/24 03:55
Calcium 8.9 mg/dl (8.4-10.2) 12/22/24 03:55
Phosphorus 3.3 mg/dl (2.5-4.5) 12/22/24 03:55
Albumin 3.4 g/dl (3.5-5.0) L 12/22/24 03:55
Physical Exam
-
Vital Signs:
Vital Signs
Temp Pulse Resp BP Pulse Ox
97.7 F 71 16 109/46 99
12/22/24 12:03 12/22/24 11:26 12/22/24 11:26 12/22/24 11:26 12/22/24 11:26
Cardiovascular:: Regular rate and rhythm
Respiratory:: Bilateral: CTA
Lung Excursion:: Normal
Abdomen:: Nontender and Soft
Bowel Sounds:: Normal
Extremity Edema:: None: Bilateral:
Hammer Catheter: No
--- NOTE | 2024-12-22 14:36 | PN.DE.MGMTRT ---
Insulin Management
- -
12/22/2024 Diabetes Management Consult
Patient admitted 12/20 with weakness. PMH HCL, diabetes. Prior to admission was taking Tresiba 6 units in AM with 4 units novolog AC. A1C on admission 8.3, cr .9, eGFR > 60.
Patient is awake alert and oriented, able to discuss diabetes care, son at bedside, very supportive and answering questions for his mother.
Patient received 12 units lantus 12/21. Glucose 177 to 277.
12/22 Fasting glucose 57. Family refused 12 units lantus. Pre lunch glucose 129.
Will reduce lantus to 6 units, home dose, to start tomorrow with low corrective insulin only AC
Discussed with nurse
Will follow.
Diabetes History
- -
Type of Diabetes: 2 requiring insulin
Pre-Admission Diabetes Regimen
12/22/24
03:55
Creatinine 0.9
Lab Results
Hemoglobin A1c 8.3 % (4.0-5.6) H 12/21/24 04:41
Insulin Pump Settings
IP Diabetes Regimen
12/21/24 12/21/24 12/22/24
15:46 21:30 01:09
Glucose
POC Glucose 277 H 111 H 98
12/22/24 12/22/24 12/22/24
03:55 03:58 04:14
Glucose 57 L
POC Glucose 55 L* 103 H
12/22/24 12/22/24 12/22/24
05:57 06:22 07:59
Glucose
POC Glucose 69 L 81 101 H
12/22/24
11:37
Glucose
POC Glucose 129 H
Meal type: Breakfast
Meal type: Dinner
Amount consumed: Patient refused
Amount consumed: 5%
Patient Education
--- NOTE | 2024-12-22 15:12 | W.PN.HOSP.TC ---
Today's Communication/Plan
-
insulin titration
ct a/p with oral contrast
stop alkaline fluids
monitor bmp
Assessment / Plan
Assessment / Plan
#Diabetic ketoacidosis
Patient presents with progressive symptoms of weakness tiredness and upper GI symptoms including emesis since yesterday. No obvious precipitating factor other than a dental procedure on Sunday. No clinical signs of focal infection based on
history. Family admits giving less insulin due to worsening PO intake
DKA based on acidosis and elevated beta-hydroxy butyric acid in labs, and missing doses of insulin. Her AG was normal on admission.
Her acidosis is probably multifactorial -hyperglycemia, chronic kidney disease, and rule out type IV RTA
#Resolved GI symptoms. Improved hyperglycemia. DC IV insulin.
Start on a diabetic diet.
Continue with the long-acting Tresiba but hold the mealtime insulin due to appetite issues. Cover with a sliding scale insulin.
optimize hyperglycemia and acidosis and evaluate her GI symptoms. If all her symptoms resolve may be all her symptoms are secondary to DKA from missed doses of insulin.
#Hyperkalemia-in the setting of DKA and dehydration
Patient had emergent treatments in ER. Improved potassium noted. Continue to follow.
can assess for possible RTA IV outpatient, difficult to assess inpatient
#Metabolic acidosis with normal anion
-Probably multifactorial including chronic kidney disease and DKA
-resolved, stop bicarb ggt
#Acute kidney injury chronic kidney disease stage III
Probably element of dehydration. Creatinine improved from 1.2-0.9 with fluid support
#Gastroparesis-continue the home regimen
Follow GI symptoms after correction of hyperglycemia and acidosis and if continued GI symptoms will relook from GI standpoint.
#Anorexia
#Associated weight loss
#Based on [employer] weight data she did lose 21 pounds.
#Mild transaminitis noted. Patient. Had gallbladder disease and had a cholecystectomy.
-with appetite remaining poor and with appetite isssues and now some diarrhea- will obtain ct a/p with oral contrast; hold iv due to recent AL and no evidence of acute infection; May need to repeat with IV contrast in the future if continued weight
loss
#Confusion, acute metabolic encephalopathy
Patient was confused and had hallucination last night. She had some hallucination at home as well. She was not her usual self since onset of her symptoms.
resolved
#Suspect encephalopathy. Nonfocal neurologically.
CT with chronic infarct - no other acute issues
Diabetes mellitus type 2
-resume insulin dosing
DM educator on board
Full code
Tx to tele
Discussed with son at bedside discussed with VERMIN EXTERMINATOR.
Total time spent on today's encounter was 51 minutes which included time spent in counseling the patient/family regarding diagnosis and treatment plan as listed above, goals of care, and symptom management. Case was discussed with nursing staff,
specialists, and care coordinators/case management. All labs and imaging personally reviewed by me. Remainder the time spent in detailed review of previous records, lab data, imaging, and other medical provider documentation.
Anticipated Discharge: 24 - 48 hours
Subjective/Interval History
-
Date of Service: December 22, 2024
hypoglycemia noted this am. holding lantus
Objective Data
-
Labs:
Laboratory Results
12/22/24
03:55
WBC 7.9
Hgb 10.2 L
Hct 29.9 L
Plt Count 196
Sodium 142
Potassium 4.7
Chloride 112 H
Carbon Dioxide 24
BUN 46 H
Creatinine 0.9
Glucose 57 L
Calcium 8.9
Total Bilirubin 0.3
AST 130 H
ALT 109 H
Alkaline Phosphatase 105
Vital Signs:
Vital Signs
Temp Pulse Resp BP Pulse Ox
97.7 F 71 16 109/46 99
12/22/24 12:03 12/22/24 11:26 12/22/24 11:26 12/22/24 11:26 12/22/24 11:26
I&O
12/21/24 12/22/24 12/23/24
06:59 06:59 06:59
Intake Total 2611.0 / 2837.0 2590 / 2590
Output Total 1050 / 1050 600 / 600
Balance 1561.0 / 1787.0 1989
Review of Systems
-
History Source: Patient
All other systems: Not reviewed unless documented
Physical Exam
-
General: Comfortable
HEENT: Moist Mucous Membranes
Respiratory: Clear to Auscultation and Non Labored Respirations; Negative Accessory Resp Muscle Use
Cardiac: Regular Rhythm and S1/S2; Negative Tachycardic
GI: Soft, Nontender, Nondistended and Normal Bowel Sounds
Neuro: Awake, Alert, Oriented and No Motor Deficits; Negative Slurred Speech or Facial Droop
Psych: Calm; Negative Confused (apart from disorientation to place) or Agitated
Data Reviewed
-
CT Scan: Report Reviewed by me
Labs: Labs Reviewed by me
--- NOTE | 2024-12-22 15:32 | PN.CDI ---
CDI
- -
CDI:
Physician Documentation Request
Admit Date: 12/20/24 15:14
Dear Doctor Ciara,
Please review the following and provide your response in the progress notes.
Clinical Indicators:
Story Analyst, 12/21
#Current BW: 82 lbs 0.191 oz BMI: 16.0 (underweight). Weight history (04/25/24) 103 lbs.
#...Patient meets AND and ASPEN criteria for severe protein calorie malnutrition
#...of chronic disease due to a loss of more than 20.4% BW over 8 months
#...and less than 75% of estimated nutrition needs met for over one month.
Based on the above information and your assessment, which of the following most accurately represents the patient's nutritional status?
Severe Protein Calorie Malnutrition of Chronic Illness
Other (please specify)
[place] Criteria ([facility] Hospitalist 2017)
2 or more criteria must be present for either
non severe or severe malnutrition
Note that the criteria differs related to the
presence of an acute or chronic illness
Chronic Illness
Energy Intake Non Severe: <75% for >1 month
Severe: <75% for >1 month
Weight Loss Non Severe: 5% over 1 month
7.5% over 3 months
10% over 6 months
20% over 1 year
Severe: >5% over 1 month
>7.5% over 3 months
>10% over 6 months
>20% over 1 year
Use of terms such as suspected, likely, concern for, or probable (associated with a specific diagnosis that is being evaluated, monitored, or treated as if it exists) are acceptable and can be coded in the inpatient setting, when documented at the
time of discharge.
Thank you,
Isha Mendieta RN BSN CCDS
CDI Specialist
Please contact via tiger text
Please use your independent medical judgment in providing your response.
[2024-12-22] MEDS: OMNIPAQUE 50 ML PO (16:23)
[2024-12-22 16:34] LABS: Glucose - Point of Care 223 mg/dl (70-99)
[2024-12-22] MEDS: NOVOLOG FLEXPEN-LOW RESISTANCE 2 UNITS SC (16:40)
--- NOTE | 2024-12-22 17:01 | CM ---
CM following for discharge planning. Pt and daughter requesting outpatient PT which pt has utilized in the past and felt it was helpful; pt's outpatient PT is [facility]; Priya is hopeful to have him again when she is discharged.
Plan: Discharge to home with outpatient PT daughter will transport.
[2024-12-22] MEDS: MAG-TAB SR 84 MG PO (17:04)
[2024-12-22] MEDS: LOW STRENGTH ASPIRIN 81 MG PO (17:04)
[2024-12-22] MEDS: MIRALAX PO (17:04)
[2024-12-22 21:44] LABS: Glucose - Point of Care 183 mg/dl (70-99)
[2024-12-23 03:09] VITALS: BP 121/53
[2024-12-23] MEDS: SYNTHROID 25 MCG PO (05:43)
[2024-12-23 07:28] LABS: Glucose - Point of Care 148 mg/dl (70-99)
[2024-12-23 08:04] LABS: % Basophils 0.5 % (0-2); % Eosinophils 4.7 % (0-6); % Immature Granulocytes 0.3 % (0-0.5); % Monocytes 10.2 % (1.7-9.3); % Neutrophils 49.3 % (42.2-75.2); Absolute Eosinophils 0.3 10^3/uL (0-0.7); Absolute Monocytes 0.6 10^3/uL (0.1-0.6); Absolute Neutrophils 2.8 10^3/uL (1.4-6.5); Hematocrit 28.9 % (37.0-47.0); Hemoglobin 9.8 g/dL (12.0-16.0); Mean Corp Hgb Conc. 33.9 g/dL (33.0-37.0); Mean Corpuscular Hgb 29.8 pg (27.0-31.0); Mean Corpuscular Volume 87.8 fL (81.0-99.0); Mean Platelet Volume 11.1 fL (7.4-10.4); Nucleated Red Blood Cells % 0 %; Platelet Count 184 10^3/uL (130-400); Red Blood Cell Count 3.29 10^6/uL (4.20-5.40); Red Cell Dist. Width 12.6 % (11.5-14.5); White Blood Cell Count 5.8 10^3/uL (4.8-10.8)
--- NOTE | 2024-12-23 08:04 | PN.DE.MGMTRT ---
Insulin Management
- -
12/23/2024 Diabetes Management Consult Follow up
Patient admitted 12/20 with weakness. PMH HCL, diabetes. Prior to admission was taking Tresiba 6 units in AM with 4 units novolog AC. A1C on admission 8.3, cr .9, eGFR > 60.
Patient is awake alert and oriented, able to discuss diabetes care, son at bedside, very supportive and answering questions for his mother.
Patient received 12 units lantus 12/21. Glucose 177 to 277.
12/22 Fasting glucose 57. Family refused 12 units lantus. Pre lunch glucose 129.
12/23 To resume Lantus 6 units daily, home dose, with low corrective insulin only AC
Discussed with nurse
Will follow.
Diabetes History
- -
Type of Diabetes: 2 requiring insulin
Pre-Admission Diabetes Regimen
Lab Results
Hemoglobin A1c 8.3 % (4.0-5.6) H 12/21/24 04:41
Insulin Pump Settings
IP Diabetes Regimen
12/22/24 12/22/24 12/22/24
07:59 11:37 16:33
POC Glucose 101 H 129 H 223 H
12/22/24 12/23/24
21:43 07:27
POC Glucose 183 H 148 H
Meal type: Breakfast
Amount consumed: Patient refused
Patient Education
[2024-12-23] MEDS: NEURONTIN 300 MG PO (08:12)
[2024-12-23] MEDS: NON-FORMULARY ITEM 2 MG PO (08:12)
[2024-12-23] MEDS: NOVOLOG FLEXPEN-LOW RESISTANCE SC (08:12)
[2024-12-23] MEDS: VISBIOME 1 CAP PO (08:12)
[2024-12-23] MEDS: PROTONIX 40 MG PO (08:12)
[2024-12-23] MEDS: HEPARIN 5000 UNITS SC (08:12)
[2024-12-23] MEDS: OCUVITE SOFTGEL 1 CAP PO (08:12)
[2024-12-23 08:20] VITALS: BP 110/52
[2024-12-23] MEDS: LANTUS SC (08:21)
[2024-12-23 08:23] LABS: ALT (SGPT) 123 U/L (0-35); AST (SGOT) 105 U/L (14-36); Albumin 3.3 g/dl (3.5-5.0); Alkaline Phosphatase 117 U/L (38-126); Blood Urea Nitrogen 38 mg/dl (7-17); Carbon Dioxide 22 mmol/L (22-30); Chloride 111 mmol/L (98-107); Estimated Creatinine Clearance 28 ml/min; Glucose 139 mg/dl (70-99); Magnesium 2.2 mg/dl (1.6-2.3); Sodium 140 mmol/L (135-145); Total Bilirubin 0.3 mg/dl (0.2-1.3); Total Protein 5.5 g/dl (6.3-8.2); eGFR > 60.00
[2024-12-23] MEDS: LANTUS 0.06 UNITS SC (08:59)
--- NOTE | 2024-12-23 11:10 | CON.GI ---
Addendum entered and electronically signed by Peter Saldana MD 12/23/24 13:13:
The patient was seen and examined by me independently in collaboration with the nurse practitioner.
Past medical history/social history/medications/allergies/family history reviewed.
Lab data and imaging data reviewed.
84-year-old female history of diabetes, follows with Dr. Ross outpatient last seen in August. She saw her for weight loss which was thought multifactorial due to fall, age, pain, lack of appetite, gas and bloating. She tried her on Remeron at
her last office visit. She also has constipation and motility issues and has been doing well with Motegrity, magnesium, MiraLAX. She has history of choledocholithiasis underwent ERCP in 2021. History of possible bacterial overgrowth had an
allergy to Xifaxan, treated with Cipro in the past doing well.
Patient now presenting after 5 days of not taking insulin as she was not eating and was more fatigued and found to have DKA. Her family had left on vacation which may have played a role. She was also having some vivid dreams and stopped her
Remeron. GI was consulted due to incidental findings found on her CT scan yesterday including diffuse liver disease with increased attenuation which could be iron deposition or amiodarone therapy (patient never took amiodarone), pneumobilia likely
due to her prior ERCP, mild wall thickening in the stomach and jejunum, mild diffuse colonic distention, fracture of L1. Additional findings non-GI follow-up per hospitalist to order the original scan. Of note, during her ERCP in 2021, mild
gastritis.
In regards to liver, mild AST/ALT elevation will add iron studies t/c HFE gene and possible MR elastography outpatient but with her age, may wish to defer.
Patient is eating now with no issues. She does have baseline decreased appetite. May have an element of gastroparesis - could consider outpatient buspar defer to outpatient GI. No bloating currently will hold off on abx. SBFT can be considered if
ongoing symptoms given CT findings. Continue mag, miralax, motegrity, hold on remeron. Encouraged ensure with food. I discussion with hospitalist, philippeay for GI point of view for discharge with close outpatient follow-up.
D/w hospitalist.
Original Note:
Consultation
-
Date/Time Consultation Requested: 12/23/24 0900
Date/Time Consultation Performed: 12/23/24 1115
Requesting Provider: Jacob Urbina MD
Performing Provider: CALLUM Forbes, Rasheeda Saldana MD
Reason for Consultation: wt loss, decreased oral intakes
Medical History
Chief Complaint / HPI
Chief Complaint: abdominal pain
History of Present Illness:
Pt is a 84yo with hx NIDDM, CKD, choledocholithiasis, hypothyroidism, anemia, prior master, recent humerus fracture, chronic pain, gastroparesis and constipation. She has been followed by Dr. Ross in office and chronic issues with wt loss,
constipation, early satiety and gastroparesis. She was on regiment with mag citrate, Miraalx and Motegrity but has some wt loss. She has seen Dr. Ross in August and discussed adding Mirtazapine that she eventually started at very low dose 7.5
mg. She was doing ok til about 2-3 weeks ago. Family had gone away for a few days then noted decreased appetite with cutting back on insulin as concern for hypoglycemia. She also stopped Mirtazapine about 5 days prior to admission with dreams.
She then began with lethargy and vomiting prompting admission and noted concern for DKA. She is feeling better since admission but asked to see with wt loss and some LFT elevation since admission though also noted back in 2022. Current bili 0.3
AST 105, ALT 1243, alk phos 117. She completed CT A/p 12/22 with concern diffuse liver disease with diffuse iron deposition or amiodarone therapy. moderate to severe pneumobilia (with hx prior EUS/ERCP), mild wall thickening of stomach and jejunum
suggest gastroenteritis, renal collecting system dilatation, mild colonic distention, acute L1 fracture DDD.
At this time patient feeling much better with improved appetite since admission and correction of DKA. She did have some diarrhea since admissionShe admits to small amount of emesis prior to admission but denies dysphagia, GERD, abdominal
pain, or bleeding.
Past Medical History
Past Medical History: Hypercholesterolemia, Hypothyroidism, NIDDM (retinopathy, anemia), Renal Failure (CKD) and Other (probable gastroparesis, weight loss, chronic pain, cholelithiasis, choledocholithiasis)
Past Surgical History: Cholecystectomy
Social History
Tobacco: Non-Smoker
Alcohol: None
Drug: None
Living: Alone (family close to patient )
Employment: Retired
Family History
Family History: Other (brother with hx master otherwise no family hx GI problems)
Allergies / Home Medications
Allergy/AdvReac Type Severity Reaction Status Date / Time
codeine Allergy Unknown Verified 12/20/24 07:11
niacin Allergy Unknown Verified 12/20/24 07:11
�Medication �Instructions �Recorded
aspirin 81 mg chewable tablet 81 mg PO QPM Blood Clot 11/18/18
Prevention/Tx
levothyroxine 25 mcg tablet 25 mcg PO DAILY Thyroid 08/04/19
vit C 250 mg-vit E 90 mg-zinc 40 1 ea PO BID Supplement 08/04/19
mg-copper 1 [id number]
capsule (PreserVision AREDS-2)
calcium 600 mg (as 1 tab PO DAILY Supplement 05/15/23
carbonate)-vitamin D3 10 mcg (400
unit) tablet (Calcium 600 + D(3))
gabapentin 300 mg capsule 300 mg PO BID Pain 05/15/23
insulin aspart U-100 100 unit/mL 4 unit SC DAILY Diabetes 05/15/23
(3 mL) subcutaneous pen (Novolog
FlexPen U-100 Insulin aspart)
magnesium citrate 125 mg capsule 125 mg PO QPM Constipation 05/15/23
prucalopride 2 mg tablet 2 mg PO DAILY Constipation 05/15/23
(Motegrity)
Lactobac no.2-Bifidobac no.1-S. 1 cap PO DAILY Supplement 12/20/24
thermo 112.5 billion cell capsule
(Visbiome)
Tresiba FlexTouch U-100 6 unit SC DAILY Diabetes 12/20/24
acetaminophen 650 mg 1,300 mg PO Q8HPRN PRN mild pain 12/20/24
tablet,extended release
polyethylene glycol 3350 17 gram 17 g PO QPM Constipation 12/20/24
oral powder packet
simethicone 180 mg capsule 180 mg PO DAILYPRN PRN gas 12/20/24
simvastatin 20 mg tablet 20 mg PO QPM High Cholesterol 12/20/24
Review of Systems
-
History Source: Patient and Family
Constitutional: Reports Weight Loss and Fatigue (now improving )
EENT: Reports No Symptoms
Respiratory: Reports No Symptoms
Cardiac: Reports No Symptoms
Abdomen/GI: Reports Nausea, Vomiting (prior to admission now improved ) and Diarrhea
: Reports No Symptoms
Musculoskeletal: Reports No Symptoms
Skin: Reports No Symptoms
Neurological: Reports Weakness
Endocrine: Reports No Symptoms
Hematologic/Lymphatic: Reports No Symptoms
Vital Signs
Temp Pulse Resp BP Pulse Ox
97.5 F 84 16 110/52 97
12/23/24 08:20 12/23/24 08:20 12/23/24 08:20 12/23/24 08:20 12/23/24 08:20
Physical Exam
Exam
General: Other (thin appearing )
HEENT: Normocephalic and Anicteric
Respiratory: Clear
Cardiac: Regular Rhythm
GI: Soft, Non Tender and Distended (minimal )
Musculoskeletal: No Clubbing and No Cyanosis
Skin: Warm and Dry
Neuro: Awake, Alert and AO x 3
Psych: Calm
Results
WBC 5.8 10^3/uL (4.8-10.8) 12/23/24 07:25
Hgb 9.8 g/dL (12.0-16.0) L 12/23/24 07:25
Hct 28.9 % (37.0-47.0) L 12/23/24 07:25
MCV 87.8 fL (81.0-99.0) 12/23/24 07:25
Plt Count 184 10^3/uL (130-400) 12/23/24 07:25
Absolute Neuts (auto) 2.8 10^3/uL (1.4-6.5) 12/23/24 07:25
PT 15.5 Sec (11.4-14.6) H 12/20/24 16:04
INR 1.20 12/20/24 16:04
APTT 26.4 Sec (23.4-35.0) 12/20/24 16:04
Sodium 140 mmol/L (135-145) 12/23/24 07:25
Potassium 5.0 mmol/L (3.5-5.1) 12/23/24 07:25
Chloride 111 mmol/L (98-107) H 12/23/24 07:25
Carbon Dioxide 22 mmol/L (22-30) 12/23/24 07:25
BUN 38 mg/dl (7-17) H 12/23/24 07:25
Creatinine 0.9 mg/dL (0.6-1.0) 12/23/24 07:25
Calcium 9.0 mg/dl (8.4-10.2) 12/23/24 07:25
Total Bilirubin 0.3 mg/dl (0.2-1.3) 12/23/24 07:25
AST 105 U/L (14-36) H 12/23/24 07:25
ALT 123 U/L (0-35) H 12/23/24 07:25
Alkaline Phosphatase 117 U/L (38-126) 12/23/24 07:25
Lipase 272 U/L (23-300) 12/20/24 08:27
Diagnostic Image Results:
12/22 CT Abdomen and Pelvis without IV Contrast
1. Diffuse liver disease with increased attenuation throughout the liver suggesting either diffuse iron deposition or amiodarone therapy.
2. Moderate to severe intrahepatic pneumobilia.
3. Previous cholecystectomy.
4. Mild wall thickening in the stomach and jejunum suggesting a gastroenteritis.
5. Severe chronic left renal disease.
6. New mild dilatation of the right renal collecting system.
7. Severe calcific atherosclerotic plaque in the abdominal aorta and femoral arteries.
8. Mild diffuse colonic distention.
9. Moderate distention of the urinary bladder.
10. Acute superior endplate fracture of L1.
11. Very severe discogenic degenerative disease at L4/L5.
12. Mild cardiomegaly with severe left atrial enlargement.
13. Severe calcific atherosclerotic plaque in the coronary arteries.
Prior GI Procedures:
EUS/ EGD and ERCP 04/2022 at [facility] with mild gastritis, normal small bowel, 1 CBD stone and multiple stones on gallbladder. No lymph nodes noted normal pancreas and pancreatic duct 6 mm sphincterotomy swept with 12mm balloon with 15 mm stone
extracted cholangiogram with no filling defect.
Assessment / Plan
-
Pt is a 84yo with hx NIDDM, CKD, choledocholithiasis, hypothyroidism, anemia, prior master, recent humerus fracture, chronic pain, gastroparesis and constipation. She has been followed by Dr. Ross in office and chronic issues with wt loss,
constipation, early satiety and gastroparesis. She was on regiment with mag citrate, Miraalx and Motegrity but has some wt loss. She has seen Dr. Ross in August and discussed adding Mirtazapine that she eventually started at very low dose 7.5
mg. She was doing ok til about 2-3 weeks ago. Family had gone away for a few days then noted decreased appetite with cutting back on insulin as concern for hypoglycemia. She also stopped Mirtazapine about 5 days prior to admission with dreams.
She then began with lethargy and vomiting prompting admission and noted concern for DKA. She is feeling better since admission but asked to see with wt loss and some LFT elevation since admission though also noted back in 2022. Current bili 0.3
AST 105, ALT 1243, alk phos 117. She completed CT A/p 12/22 with concern diffuse liver disease with diffuse iron deposition or amiodarone therapy. moderate to severe pneumobilia (with hx prior EUS/ERCP), mild wall thickening of stomach and jejunum
suggest gastroenteritis, renal collecting system dilatation, mild colonic distention, acute L1 fracture DDD.
-DKA/metabolic acidosis on admission
-nausea/vomiting prior to admission now improved
-CT with diffuse liver disease with change of iron deposition/amiodarone therapy
-wall thickening of stomach and jejunum suggest gastroenteritis 04/2022 at [facility] with mild gastritis, normal small bowel
-mild colonic distention
-L1 acute fracture per CT
-AL on admission now improving
-wt loss
-hypoalbuminemia
other medical problems:
-gastroparesis
-constipation
-CKD
-anemia
-chronic pain
-DM
-DDD
-CM
PLAN:
Concern for DKA on admission now improving
pt with some decreased appetite, wt loss prior to onset etiology unclear but eating better today
Pt is noted acute L1 fracture on CT and colonic distention unsure if related to GI symptoms
monitor current diet
t/c UGI/SBFT if symptoms persist
will review CT with Dr. Saldana with iron deposition/amiodarone therapy with minimal LFT elevation any intervention given age
pneumobilia related to prior ERCP in past
cont chronic GI regiment Miralax and Motegrity and
will stop mag supplement as was on mag citrate tabs not mag SR prior to admission will see if family can bring mag citrate tabs
remains on Mirtazapine
updated son at beside
-
-
Thank you for consultation and allowing me to participate in the patient's care. Please call the telephone interviewer GI physician during the after hours with any questions or concerns.
[2024-12-23 11:15] VITALS: BP 109/43
[2024-12-23 11:57] LABS: Glucose - Point of Care 298 mg/dl (70-99)
[2024-12-23] MEDS: NOVOLOG FLEXPEN-LOW RESISTANCE 3 UNITS SC (12:28)
--- NOTE | 2024-12-23 12:52 | CM ---
TT to Dr. Urbina, requesting RX/order for outpatient PT. Pt has been in outpatient PT previously and would like to return there.
[2024-12-23 13:24] LABS: Iron 56 ug/dl (37-170)
--- NOTE | 2024-12-23 13:25 | W.PN.NEPH.PH ---
Today's Communication / Plan
-
follow labs
d/c plan
Assessment/Plan
-
Impression:
Hyperglycemia/HHNK vs DKA
Metabolic acidosis (AG 12)
CKD stage IIIa (1.3)
Diabetes
Hypothyroidism
Hyperlipidemia
Plan:
- Metabolic acidemia resolved off IVF
- Creatinine better then baseline
encourage solute intake
CT abd results noted, GI consulted for high LFTs
cortical volume loss Rt<left kidneys, mild distension of bilat renal pelvis, U cx neg
follow labs
after d/c f/u Dr Abad
-
-
Date of Service: December 23, 2024
CC / HPI / ROS
-
Chief Complaint:
Metabolic acidosis
CKD
History of Present Illness:
Hemodynamically more stable
Metabolic acidosis improved, off IVF
Creatinine currently normalized and lower than baseline 0.9
Review of Systems:
no fevers
no n/v
eating well today
weights stable
Labs
-
Labs:
WBC 5.8 10^3/uL (4.8-10.8) 12/23/24 07:25
RBC 3.29 10^6/uL (4.20-5.40) L 12/23/24 07:25
Hgb 9.8 g/dL (12.0-16.0) L 12/23/24 07:25
Hct 28.9 % (37.0-47.0) L 12/23/24 07:25
Plt Count 184 10^3/uL (130-400) 12/23/24 07:25
Sodium 140 mmol/L (135-145) 12/23/24 07:25
Potassium 5.0 mmol/L (3.5-5.1) 12/23/24 07:25
Chloride 111 mmol/L (98-107) H 12/23/24 07:25
Carbon Dioxide 22 mmol/L (22-30) 12/23/24 07:25
BUN 38 mg/dl (7-17) H 12/23/24 07:25
Creatinine 0.9 mg/dL (0.6-1.0) 12/23/24 07:25
eGFR > 60.00 12/23/24 07:25
Glucose 139 mg/dl (70-99) H 12/23/24 07:25
Calcium 9.0 mg/dl (8.4-10.2) 12/23/24 07:25
Phosphorus 3.3 mg/dl (2.5-4.5) 12/22/24 03:55
Albumin 3.3 g/dl (3.5-5.0) L 12/23/24 07:25
Physical Exam
-
Vital Signs:
Vital Signs
Temp Pulse Resp BP Pulse Ox
97.9 F 84 18 109/43 95
12/23/24 11:15 12/23/24 11:15 12/23/24 11:15 12/23/24 11:15 12/23/24 11:15
Cardiovascular:: Regular rate and rhythm
Respiratory:: Bilateral: CTA
Lung Excursion:: Normal
Abdomen:: Nontender and Soft
Bowel Sounds:: Normal
Extremity Edema:: None: Bilateral:
Hammer Catheter: No
[2024-12-23 13:34] LABS: Percent Saturation 22 % (20-50); Total Iron Binding Capacity 249 ug/dl (265-497)
--- NOTE | 2024-12-23 13:46 | W.PN.HOSP.TC ---
Addendum entered and electronically signed by Jacob Urbina MD 12/25/24 17:01:
Severe Protein Calorie Malnutrition of Chronic Illness
Addendum entered and electronically signed by Jacob Urbina MD 12/23/24 17:44:
[id number]
Original Note:
Today's Communication/Plan
-
Tresiba and as needed novolog
f/u cbc and cmp outpatient
hold statin
add iron studies t/c HFE gene and possible MR elastography outpatient
SBFT can be considered if ongoing symptoms given CT findings outpatient
Continue mag, miralax, motegrity, hold on remeron.
Assessment / Plan
Assessment / Plan
#Diabetic ketoacidosis
Patient presents with progressive symptoms of weakness tiredness and upper GI symptoms including emesis since yesterday.. Family admits giving less insulin due to worsening PO intake. Also possible gastroenteritis with evidence on imaging
DKA based on acidosis and elevated beta-hydroxy butyric acid in labs, and missing doses of insulin. Her AG was normal on admission.
Her acidosis is probably multifactorial -hyperglycemia, chronic kidney disease, and rule out type IV RTA
Resolved
Back on insulin dosing, back on Tresiba 6 units, and as needed 4 units of NovoLog if glucose elevated Premeal
Resolved GI symptoms. Improved hyperglycemia. DC IV insulin.
Start on a diabetic diet.
Continue with the long-acting Tresiba but hold the mealtime insulin due to appetite issues. Cover with a sliding scale insulin.
Follow-up BMP outpatient
#Hyperkalemia-in the setting of DKA and dehydration
Patient had emergent treatments in ER. Improved potassium noted. Continue to follow.
can assess for possible RTA IV outpatient, difficult to assess inpatient
Follow-up BMP outpatient
#Metabolic acidosis with normal anion
-Probably multifactorial including chronic kidney disease and DKA
-resolved, stop bicarb ggt
� Follow-up PCP outpatient
#Acute kidney injury chronic kidney disease stage III
Probably element of dehydration. Creatinine improved from 1.2-0.9 with fluid support
Follow-up nephrology outpatient
#Gastroparesis-continue the home regimen
Follow GI symptoms after correction of hyperglycemia and acidosis and if continued GI symptoms will relook from GI standpoint.
May consider outpatient BuSpar, defer to outpatient GI
� Small bowel follow-through can be considered if ongoing symptoms given CT findings
Continue mag citrate, MiraLAX, Motegrity
� Holding Remeron
� Ensure with food
#Anorexia
#Associated weight loss
#Based on [employer] weight data she did lose 21 pounds.
#Mild transaminitis noted. Patient. Had gallbladder disease and had a cholecystectomy.
Transaminitis improving
� Severe Intermatic pneumobilia, although no acute findings on clinical exam�status post cholecystectomy
Gastroenteritis, improving symptomatically
Follow-up LFTs outpatient
#Diffuse liver disease with increased attenuation throughout the liver suggesting either diffuse iron deposition or amiodarone therapy
� Never has been on amiodarone
� GI consulted
� HFE testing/iron labs
� May need to have possible MR elastography, defer outpatient
#Confusion, acute metabolic encephalopathy
#Suspect encephalopathy. Nonfocal neurologically.
CT with chronic infarct - no other acute issues
Mostly secondary to acidosis, acute issues
Resolved
Diabetes mellitus type 2
-resume insulin dosing
DM educator on board
Full code
Tx to tele
More than 30 minutes spent in discharge including
Final examination of the patient
Summarizing hospital stay
Instructions for continuing care to all relevant caregivers
Preparation of discharge records, prescriptions, and referral forms
Total time spent (in minutes): 37
Anticipated Discharge: Today
Subjective/Interval History
-
Date of Service: December 23, 2024
Tolerating diet, no acute events overnight
Objective Data
-
Labs:
Laboratory Results
12/23/24
07:25
WBC 5.8
Hgb 9.8 L
Hct 28.9 L
Plt Count 184
Sodium 140
Potassium 5.0
Chloride 111 H
Carbon Dioxide 22
BUN 38 H
Creatinine 0.9
Glucose 139 H
Calcium 9.0
Total Bilirubin 0.3
AST 105 H
ALT 123 H
Alkaline Phosphatase 117
Vital Signs:
Vital Signs
Temp Pulse Resp BP Pulse Ox
97.9 F 84 18 109/43 95
12/23/24 11:15 12/23/24 11:15 12/23/24 11:15 12/23/24 11:15 12/23/24 11:15
I&O
12/22/24 12/23/24 12/24/24
06:59 06:59 06:59
Intake Total 2590 / 2590 550 / 550
Output Total 600 / 600
Balance 1989 550 / 550
Review of Systems
-
History Source: Patient
All other systems: Not reviewed unless documented
Physical Exam
-
General: Comfortable
HEENT: Moist Mucous Membranes
Respiratory: Clear to Auscultation and Non Labored Respirations; Negative Accessory Resp Muscle Use
Cardiac: Regular Rhythm and S1/S2; Negative Tachycardic
GI: Soft, Nontender, Nondistended and Normal Bowel Sounds
Neuro: Awake, Alert, Oriented, No Motor Deficits and Slurred Speech; Negative Facial Droop
Psych: Calm and Confused (apart from disorientation to place)
Data Reviewed
-
CT Scan: Report Reviewed by me
Labs: Labs Reviewed by me
--- NOTE | 2024-12-23 13:53 | W.DS.TRANS ---
DC Summary - Silo Worker
-
Discharge Instructions:
Discharge Diagnosis/Procedures #Diabetic ketoacidosis
#Decreased PO intake
# Elevated liver enzymes
Diet As tolerated
Additional Diets encourage adequate protein intake, Ensure if
needed
Blood Work cbc and cmp in 5-7 days with pcp
Others Tests to consider HFE gene and possible MR
elastography outpatient but with her age, may
wish to defer.
could consider outpatient buspar defer to
outpatient GI. SBFT can be considered
noted acute L1 fracture on CT - Follow up
Outpatient
Other Services PT
Instructions:
Stand-Alone Forms:
Changes to Home Medications: Yes
Discharge Medications:
DC Medications w/original date entered in [employer]
aspirin 81 mg chewable tablet 81 mg PO QPM Blood Clot Prevention/Tx 11/18/18
levothyroxine 25 mcg tablet 25 mcg PO DAILY Thyroid 08/04/19
vit C 250 mg-vit E 90 mg-zinc 40 mg-copper 1 bf-rgnxgs-vunzib capsule (PreserVision AREDS-2) 1 ea PO BID Supplement 08/04/19
calcium 600 mg (as carbonate)-vitamin D3 10 mcg (400 unit) tablet (Calcium 600 + D(3)) 1 tab PO DAILY Supplement 05/15/23
gabapentin 300 mg capsule 300 mg PO BID Pain 05/15/23
magnesium citrate 125 mg capsule 125 mg PO QPM Constipation 05/15/23
prucalopride 2 mg tablet (Motegrity) 2 mg PO DAILY Constipation 05/15/23
Lactobac no.2-Bifidobac no.1-S. thermo 112.5 billion cell capsule (Visbiome) 1 cap PO DAILY Supplement 12/20/24
Tresiba FlexTouch U-100 6 unit SC DAILY Diabetes 12/20/24
acetaminophen 650 mg tablet,extended release 1,300 mg PO Q8HPRN PRN mild pain 12/20/24
polyethylene glycol 3350 17 gram oral powder packet 17 g PO QPM Constipation 12/20/24
simethicone 180 mg capsule 180 mg PO DAILYPRN PRN gas 12/20/24
simvastatin 20 mg tablet 20 mg PO QPM High Cholesterol 12/20/24
Held on 12/23/24. Instructions: Resume on 12/31/24. until lfts followed up and cleared by pcp
insulin aspart U-100 100 unit/mL (3 mL) subcutaneous pen (Novolog FlexPen U-100 Insulin aspart) 4 unit (0.04 mL) SC AC PRN If glucose is elevated pre meal #15 mL 12/23/24
Home Medication Changes
Held on 12/23/24. Instructions: Resume on 12/31/24. until lfts followed up and cleared by pcp
insulin aspart U-100 100 unit/mL (3 mL) subcutaneous pen (Novolog FlexPen U-100 Insulin aspart) 4 unit (0.04 mL) SC AC PRN If glucose is elevated pre meal #15 mL 12/23/24
Pending Results: No
[2024-12-23 15:00] VITALS: BP 112/51
--- NOTE | 2024-12-23 16:53 | PTCARENOTE ---
pt and family left prior to receiving script for pt/ot and also forgot home meds. script and meds ready for pt with [employer] out of town collection clerk by this Rn. pts son contacted via phone and conversation had; son ALYSE will stop by 6/18 AM to garbage pick up worker script and
medication.
[2024-12-26 09:19] LABS: Transferrin 192 mg/dL (200-360)
== END 2024-12-23 16:25 | disposition home or self-care (01) | DRG 637 ==
LOC: 3 WEST ACU 15:14
PROVIDERS: ADMITTING PHYSICIAN Internal Medicine; ATTENDING PHYSICIAN Internal Medicine; CONSULT PHYSICIAN Internal Medicine Critical Care Medicine; CONSULT PHYSICIAN Specialist; EMERGENCY PHYSICIAN Emergency Medicine; FAMILY PHYSICIAN Family Medicine
DX: E11.10 Type 2 diabetes mellitus with ketoacidosis without coma (principal); E43 Unspecified severe protein-calorie malnutrition; G93.41 Metabolic encephalopathy; N17.9 Acute kidney failure, unspecified; S32.019A Unspecified fracture of first lumbar vertebra, initial encounter for closed fracture; Z68.1 Body mass index [BMI] 19.9 or less, adult; E11.43 Type 2 diabetes mellitus with diabetic autonomic (poly)neuropathy; E11.65 Type 2 diabetes mellitus with hyperglycemia; E87.5 Hyperkalemia; I12.9 Hypertensive chronic kidney disease with stage 1 through stage 4 chronic kidney disease, or unspecified chronic kidney disease; N18.31 Chronic kidney disease, stage 3a; K31.84 Gastroparesis; K59.00 Constipation, unspecified; E11.22 Type 2 diabetes mellitus with diabetic chronic kidney disease; E03.9 Hypothyroidism, unspecified; E88.09 Other disorders of plasma-protein metabolism, not elsewhere classified; G89.4 Chronic pain syndrome; R63.0 Anorexia; D72.829 Elevated white blood cell count, unspecified; E78.5 Hyperlipidemia, unspecified; D63.1 Anemia in chronic kidney disease; K76.9 Liver disease, unspecified; K52.9 Noninfective gastroenteritis and colitis, unspecified; X58.XXXA Exposure to other specified factors, initial encounter; Z79.899 Other long term (current) drug therapy; Z79.82 Long term (current) use of aspirin; Z79.4 Long term (current) use of insulin; Z86.73 Personal history of transient ischemic attack (TIA), and cerebral infarction without residual deficits; Z90.49 Acquired absence of other specified parts of digestive tract
CPT/HCPCS: 70450; 71045; 74176; 80048; 80053; 80061; 81003; 81015; 82010; 82728; 82805; 82962; 83036; 83540; 83550; 83690; 83735; 84100; 84132; 84443; 84466; 85025; 85027; 85610; 85730; 93005; 94640; 96361; 96365; 96366; 96367; 96375; 97162; 97166; 97530; 99291

== ENCOUNTER → 2025-01-22 10:47 | Outpatient (REF) | payer OTHER, SELFPAY | LOC: MRI 3T 10:47 | PROVIDERS: ATTENDING PHYSICIAN Internal Medicine; FAMILY PHYSICIAN Family Medicine | DX: R63.4 Abnormal weight loss (principal); R68.81 Early satiety; R14.2 Eructation; K76.9 Liver disease, unspecified | CPT/HCPCS: 72197; 74183; A9575 ==

== ENCOUNTER 2025-02-21 18:30 | Inpatient (IN) | payer OTHER, SELFPAY ==
[2025-02-21] VITALS (7 sets, daily range): BP systolic 105–143; BP diastolic 44–65; BMI 17.7; BMI 16.9
[2025-02-21 15:48] LABS: Hematocrit 32.1 % (37.0-47.0); Hemoglobin 10.7 g/dL (12.0-16.0); Mean Corp Hgb Conc. 33.3 g/dL (33.0-37.0); Mean Corpuscular Volume 88.9 fL (81.0-99.0); Nucleated Red Blood Cells % 0 %; Platelet Count 225 10^3/uL (130-400); Red Cell Dist. Width 14.2 % (11.5-14.5)
[2025-02-21 16:06] LABS: ALT (SGPT) 56 U/L (0-35); AST (SGOT) 23 U/L (14-36); Albumin 3.5 g/dl (3.5-5.0); Alkaline Phosphatase 110 U/L (38-126); Blood Urea Nitrogen 50 mg/dl (7-17); Calcium 8.7 mg/dl (8.4-10.2); Carbon Dioxide 15 mmol/L (22-30); Chloride 105 mmol/L (98-107); Glucose 211 mg/dl (70-99); Lipase 77 U/L (23-300); Potassium 3.4 mmol/L (3.5-5.1); Sodium 130 mmol/L (135-145); Total Protein 6.1 g/dl (6.3-8.2); eGFR 33.73
--- NOTE | 2025-02-21 16:12 | ED.GENMED ---
History of Present Illness
General
Chief Complaint: Abdominal Symptoms
Source: patient
Time Seen by Provider: 02/21/25 15:44
History of Present Illness
History of Present Illness:
84-year-old female presents to the emergency room for evaluation of fever, diarrhea. Patient began feeling some bloating about 24 hours ago. She then began having copious amounts of foul-smelling diarrhea. Family notes she had a temperature up to
102. Symptoms were not improving prompting her visit here to the emergency room. Patient denies any real significant abdominal pain. She does not have any vomiting. Patient was hospitalized here at [facility] 14 December for vomiting and a metabolic
acidosis at which point she was started on bicarb. She has a history of small bowel bacterial overgrowth and had a course of Cipro for that a couple weeks ago.
Past History
Past History
ED Past Medical History: Hypercholesterolemia, IDDM and Other (sciatica)
ED Past Surgical History: Appendectomy
Social History
Tobacco: Non-smoker
Personal:
Living: alone
Family History
Family History: Other (Noncontributory)
Phy Exam
Physical Exam
Physical Exam:
General: Awake, Alert, Oriented X3. Appears stated age, thin and frail
Vitals: Febrile
Head: Atraumatic
Eyes: Pupils equal, EOMI
Throat: Airway intact, no exudates, dry mucosa
Neck: Trachea midline
Lungs: Clear and equal b/l
Heart: Regular rate, no murmurs
Abd: Soft, no tenderness to palpation, No pulsatile mass
Neuro: Nonfocal
Skin: Warm, dry, no rash
Extremities: pulses equal b/l, no edema
Sepsis
Sepsis Screening
Sepsis Assessment: Sepsis Ruled Out
Sepsis Screen
Sepsis Screen: Sepsis Ruled Out
Date: 02/21/25
Time: 22:47
Course
Orders/Labs/Results
Orders:
Orders
02/21/25 Dinner
Full Liquids
At Your Request: Limited Participation
02/21/25 15:31
IV Insert/Care/Rem.- Treatment PRN
02/21/25 15:38
B-Hydroxybutyrate Urgent
Comment: ADD ON
Complete Blood Count/With Diff Urgent
Comprehensive Metabolic Panel Urgent
Lipase Urgent
Magnesium Urgent
Comment: ADD ON
02/21/25 16:07
0.9% Sodium Chloride 1000 ml [Nss] 1,000 ml IV BOLUS
02/21/25 16:23
Acetaminophen [Tylenol] 650 mg .ROUTE .STK-MED ONE
02/21/25 16:29
Acetaminophen [Tylenol] 650 mg PO NOW STA
02/21/25 16:38
Norovirus by PCR Urgent
NIA Source: Feces/Stool
Specimen Description:
Date Specimen was Collected: 02/21/25
Time Specimen was Collected: 16:36
STOOL [C difficile Antigen & Toxins] Urgent
NIA Source: Feces/Stool
Specimen Description:
Date Specimen was Collected: 02/21/25
Time Specimen was Collected: 16:36
Stool Culture Urgent
NIA Source: Feces/Stool
Specimen Description:
Date Specimen was Collected: 02/21/25
Time Specimen was Collected: 16:36
02/21/25 17:34
Potassium Chloride 10% Elixir [KCl Elixir] 40 meq PO NOW STA
02/21/25 17:53
Potassium Chloride [KCl] 20 meq 0.9% Sodium Chloride 150 ml [Nss] 150 ml IV NOW
02/21/25 18:02
Admit/Transfer Patient As Directed
Co-Sign Provider:
Level of Care: Inpatient admission
Assign to:: Telemetry
Physician / Group: [email or web address]
Diagnosis: Acute diarrheal illness ,AL, metabolic acidosis , hypokalemia
Reason for Telemetry: Other
Other Reason for Telemetry: severe hypokalemia
Date to Stop Telemetry: 02/23/25
Time to Stop Telemetry: 11:00
Reason for Hospitalization: Acute diarrheal illness ,AL, metabolic acidosis
Expected length of stay greater than two midnights?: Yes
ELOS- Estimated Length of Stay in days: 3
I certify the patient meets the requirements for IP care: Yes
02/21/25 18:04
Code Status As Directed
Resuscitation Status: Full Code
02/21/25 19:43
0.9% Sodium Chloride 1000 ml [Nss] 1,000 ml IV 100 mls/hr
Bisacodyl [Dulcolax] 10 mg RECTAL [id number] PRN
Dextrose 50%-Water [Dextrose 50% Syringe] 12.5 grams IV [id number] PRN
Docusate W/Senna [Senokot-S] 1 tablet PO BIDPRN PRN
Glucagon [GlucaGen] 1 mg IM PRN PRN
Ondansetron Injectable [Zofran] 4 mg IV Q6HPRN PRN
Polyethylene Glycol Powder [Miralax] 17 grams PO DAILYPRN PRN
02/21/25 19:43
Activity As Directed
Activity Level: With Assistance
Bedside Glucose Monitoring As Directed
Frequency: AC&HS
Additional Instructions:: Change to q6h if pt on TPN, tube feeding or not eating
Intake/ Output As Directed
Frequency: Per unit guidelines
Pneumatic Compression Sleeves As Directed
Type: Knee high
Vital Signs As Directed
Frequency: Per unit guidelines
Weight As Directed
Frequency: Daily
DX Deep Vein Thrombosis Video Routine
02/22/25 06:00
Complete Blood Count/With Diff IN AM
Comprehensive Metabolic Panel IN AM
Glycohemoglobin (HgbA1c) IN AM
Magnesium IN AM
02/22/25 07:30
Insulin Aspart Corrective Low [Novolog Flexpen-Low Resistance] See Protocol SC AC
02/23/25 11:00
DC Protocol for Telemetry ONCE
Abnormal Lab Results
02/21/25
15:38
WBC 15.8 H 10^3/uL
(4.8-10.8)
RBC 3.61 L 10^6/uL
(4.20-5.40)
Hgb 10.7 L g/dL
(12.0-16.0)
Hct 32.1 L %
(37.0-47.0)
MPV 10.5 H fL
(7.4-10.4)
Abs Immat Gran (auto) 0.1 H 10^3/uL
(0-0.05)
Absolute Neuts (auto) 12.6 H 10^3/uL
(1.4-6.5)
Absolute Monos (auto) 1.5 H 10^3/uL
(0.1-0.6)
Neutrophils % 80.1 H %
(42.2-75.2)
Lymphocytes % 9.9 L %
(20.5-51.1)
Monocytes % 9.4 H %
(1.7-9.3)
Sodium 130 L mmol/L
(135-145)
Potassium 3.4 L mmol/L
(3.5-5.1)
Carbon Dioxide 15 L mmol/L
(22-30)
BUN 50 H mg/dl
(7-17)
Creatinine 1.5 H mg/dL
(0.6-1.0)
Glucose 211 H mg/dl
(70-99)
ALT 56 H U/L
(0-35)
Total Protein 6.1 L g/dl
(6.3-8.2)
02/21/25 15:38
02/21/25 15:38
Vital Signs
Initial and Last Documented VS:
Initial Vital Signs
Temp Pulse Resp BP Pulse Ox
100.5 F H 92 16 112/50 97
02/21/25 15:29 02/21/25 15:29 02/21/25 15:29 02/21/25 15:29 02/21/25 15:29
Last Documented Vital Signs
Temp Pulse Resp BP Pulse Ox
98.1 F 78 18 107/49 98
02/21/25 20:36 02/21/25 20:36 02/21/25 20:36 02/21/25 20:36 02/21/25 20:36
MDM/Problems Addressed
Differential Diagnosis Includes:
Dehydration, diarrhea from C. difficile, diarrhea from norovirus, diarrhea for mother viral or bacterial infection.
MDM/Problems Addressed:
Patient presents with copious diarrhea, dehydration. I suspect she has C. difficile IV fluid resuscitation performed. Patient will be admitted given her level of dehydration. she does not have any reproducible abdominal pain on exam and therefore
CT not ordered.
*Pulse Oximetry
SaO2: 97
Oxygen Mode of Delivery: Room air
Patient hypoxic: no
*Critical Care Note
Total Time (30-74mins, 75-104mins- exclusive of procedures): Not Applicable
ED Attending Note
-
Portions of this chart may have been created with voice recognition software.� Occasional wrong word or��sound alike� substitutions may have occurred due to the inherent limitations of voice recognition software.
Discharge Plan
Departure
Patient Disposition: Admit
Date of Disposition: 02/21/25
Time of Disposition: 17:33
Admit to: Med/Surg
Presentation/result/management discussed w/ accepting MD/DO: Hospitalist
Discharge Problem:
Diarrhea, Dehydration, Hypokalemia
Interventions
Interventions:
*Risk Screen - Suicide Last Done: 02/21/25 15:29
*General Assessment Last Done: 02/21/25 15:29
*Neglect/Abuse Screening Last Done: 02/21/25 15:29
*ED- Fall Risk Assessment Last Done: 02/21/25 18:00
*ED COVID-19 Vaccine History Last Done: 02/21/25 18:00
*Nursing Disposition Last Done: 02/21/25 19:41
AS-Lakjny-Ogqkdujcbo Assessment Last Done: 02/21/25 15:45
Discharge Date and Time
Discharge Date/Time: 02/21/25 19:41
[2025-02-21] MEDS: TYLENOL 650 MG PO (16:30)
[2025-02-21] MEDS: NSS 1000 IV ×2 (17:03→20:44)
--- NOTE | 2025-02-21 17:54 | HPS.HSE ---
Family Physician
-
Family Physician: Sanchez Marshall
Chief Complaint
-
copious amounts of foul-smelling diarrhea.
History of Present Illness
HPI
83F HX CKD3a, Gastroparesis, DM , Hypothyroid seen at ER:
- evaluation of fever, diarrhea
- some bloating about 24 hours ago followed by copious amounts of foul-smelling diarrhea.
- Family notes she had a temperature up to 102.
- Symptoms were not improving prompting her visit here to the emergency room.
- HX small bowel bacterial overgrowth and had a course of Cipro for that a couple weeks ago
- hospitalized here at [facility] 14 December for vomiting and a metabolic acidosis at which point she was started on bicarb.
ROS
- denies any real significant abdominal pain.
- not have any vomiting.
Medical History
Past Medical History
Past Medical History: Reports Other (Hyperlipidemia, hypothyroidism, probable gastroparesis, weight loss, chronic pain, cholelithiasis and choledocholithiasis, chronic kidney disease, diabetes mellitus type 2, diabetic retinopathy, anemia of chronic
disease,)
Past Surgical History: Reports Other (ERCP in the past)
Social History
Tobacco: Non-smoker
Alcohol: None
Drug: None
Family History
Family History: Other (History of gallstones in her brother.)
Allergies / Home Medications
Allergies reflects when Allergies were last updated in [email or web address].
Home Medications with original date entered in [email or web address]
Allergy/Medication List:
Allergies
Allergy/AdvReac Type Severity Reaction Status Date / Time
codeine Allergy Unknown Unknown Verified 05/15/23 09:19
Home Medications
aspirin 81 mg chewable tablet 81 mg PO HS Blood Clot Prevention/Tx 11/18/18
insulin detemir U-100 100 unit/mL subcutaneous solution (Levemir U-100 Insulin) 8 units SC DAILY Diabetes 11/18/18
levothyroxine 25 mcg tablet 25 mcg PO DAILY Thyroid 08/04/19
simvastatin 40 mg tablet 40 mg PO HS High Cholesterol 08/04/19
vit C 250 mg-vit E 90 mg-zinc 40 mg-copper 1 ng-rabmsp-sxpksr capsule (PreserVision AREDS-2) 1 ea PO BID Supplement 08/04/19
calcium carbonate 600 mg-vitamin D3 10 mcg (400 unit) tablet (Calcium 600 + D(3)) 1 tab PO DAILY Supplement 05/15/23
gabapentin 300 mg capsule 300 mg PO TID Pain 05/15/23
insulin aspart U-100 100 unit/mL (3 mL) subcutaneous pen (Novolog FlexPen U-100 Insulin aspart) 8 unit SC DAILY Diabetes 05/15/23
magnesium citrate 125 mg capsule 125 mg PO HS Constipation 05/15/23
prucalopride 2 mg tablet (Motegrity) 2 mg PO DAILY Constipation 05/15/23
Review of Systems
-
Constitutional: Reports No Symptoms
EENT: Reports No Symptoms
Respiratory: Reports No Symptoms
Cardiac: Reports No Symptoms
Abdomen/GI: Reports See HPI
: Reports No Symptoms
Musculoskeletal: Reports No Symptoms
Skin: Reports No Symptoms
Neurological: Reports No Symptoms
Endocrine: Reports No Symptoms
Hematologic/Lymphatic: Reports No Symptoms
Psych: Reports No Symptoms
Physical Exam
Vital Signs
Vital Signs
Temp Pulse Resp BP Pulse Ox
100.5 F H 89 20 109/49 98
02/21/25 15:29 02/21/25 17:00 02/21/25 17:00 02/21/25 17:00 02/21/25 17:00
Physical Exam
General: Comfortable
Respiratory: Clear and Non Labored Respirations; No Accessory Resp Muscle Use
Cardiac: S1/S2 and Regular Rhythm; No Tachycardia
GI: Soft, Non Tender, Non Distended and Normal Bowel Sounds
Musculoskeletal: No Edema
Neuro: AO x 3
Psych: Calm
Laboratory Results
-
02/21/25 15:38
02/21/25 15:38
Laboratory Results
Total Bilirubin 0.5 mg/dl (0.2-1.3) 02/21/25 15:38
AST 23 U/L (14-36) 02/21/25 15:38
ALT 56 U/L (0-35) H 02/21/25 15:38
Alkaline Phosphatase 110 U/L (38-126) 02/21/25 15:38
Lipase 77 U/L (23-300) 02/21/25 15:38
Data Reviewed
-
Lab Data: Labs Reviewed by me
Old Records: Reviewed
Impression/Plan
-
Vital Signs
Temp Pulse Resp BP Pulse Ox
100.5 F H 89 20 109/49 98
02/21/25 15:29 02/21/25 17:00 02/21/25 17:00 02/21/25 17:00 02/21/25 17:00
Laboratory Tests
12/23/24 02/21/25
07:25 15:38
WBC 15.8 H
Hgb 9.8 L 10.7 L
Sodium 130 L
Potassium 3.4 L
Carbon Dioxide 15 L
BUN 50 H
Creatinine 0.9 1.5 H
eGFR > 60.00 33.73
Glucose 211 H
ALT 56 H
Total Protein 6.1 L
Last hospitalist admission: DATE OF ADMISSION: 12/20/2024 - DATE OF DISCHARGE: 12/23/2024
DISCHARGE DIAGNOSES:
1. Diabetic ketoacidosis.
2. Decreased PO intake.
3. Elevated liver enzymes.
ASSESSMENT & PLAN
Acute copious non bloody foul-smelling diarrhea
Recent HX Ciprofloxacin for SB bacterial overgrowth
DDx : C Diff vs WESLEY
- stool for Noro virus, C Diff , Cx pending
- Supportive care : IVF
- To avoid anti diarrheal agents
AL due to diarrheal loss
Associated metabolic acidosis ( NAG MA of 10)
Hypokalemia due to diarrheal dz
- check Mg
- will also give IV KCL Ulysses 20 mEq
- s/p PO KCL 40 at ER
- IV NS
- Trend BMP
HX Gastroparesis
DMT2
- add ISS low
HX Anorexia with weight loss
BMI 17
Mild transaminitis noted
HX gallbladder disease and had a cholecystectomy.
Transaminitis improving
- Follow-up LFTs outpatient
HX diffuse liver disease with increased attenuation throughout the liver suggesting either diffuse iron deposition
- possible MR elastography, defer outpatient
Known PMHX
Hypothyroidism
Hyperlipidemia
DVT Px: SCD
Full Code:
IP TLM
[2025-02-21] MEDS: KCL 160 MEQ IV (18:45)
[2025-02-21 19:52] LABS: Magnesium 1.6 mg/dl (1.6-2.3)
[2025-02-21 22:40] LABS: Glucose - Point of Care 198 mg/dl (70-99)
--- NOTE | 2025-02-21 22:44 | W.PN.UPDATE ---
Addendum entered and electronically signed by CALLUM Del Cid 02/22/25 07:05:
-This am, Lab result shows CO2 9, K 3.3, Mag 1.5.
-Anion gap is 10.
-Sodium bicarb 50meq syringe ordered. K & mag repleted, and will repeat BMP in few hours.
-Hgb level is trending down, on admission 10.7 -->10.2---> this am is 9.3.
-Vital signs within normal baseline will continue monitoring h&h and transfer if needed.
Original Note:
Update Note
Progress Note Update
Patient is positive heme test, per staff there is a change in the bm color and now is orange/red. Vital signs within baseline.
-Will start PPI IV daily.
-h&h q 6hrs.
-GI consult placed.
--- NOTE | 2025-02-21 22:52 | PTCARENOTE ---
02/21 Pt newly admitted to , experiencing diarrhea. This RN noted a change in color in the copious diarrhea and the pt stated there is now cramping, did a Heme test, tested positive. Notified house PAPER FINAL INSPECTOR, ordered H&H Q6hrs, consulted GI, and wait for
pending stool sample results. Pt states she does not have any pain, no hx of hemorrhoids.
[2025-02-21 23:07] LABS: Hematocrit 30.8 % (37.0-47.0); Hemoglobin 10.2 g/dL (12.0-16.0)
[2025-02-21] MEDS: NSS (PRESERVATIVE FREE) 10 ML IV (23:07)
[2025-02-21] MEDS: PROTONIX IV 40 MG IV (23:07)
[2025-02-22 03:38] VITALS: BP 142/63
[2025-02-22] MEDS: TYLENOL 650 MG PO (05:21)
[2025-02-22 06:02] LABS: Hematocrit 28.3 % (37.0-47.0); Hemoglobin 9.3 g/dL (12.0-16.0); Mean Corp Hgb Conc. 32.9 g/dL (33.0-37.0); Mean Corpuscular Volume 88.2 fL (81.0-99.0); Nucleated Red Blood Cells % 0 %; Platelet Count 201 10^3/uL (130-400); Red Cell Dist. Width 14.3 % (11.5-14.5)
[2025-02-22 06:41] LABS: ALT (SGPT) 44 U/L (0-35); AST (SGOT) 19 U/L (14-36); Albumin 2.8 g/dl (3.5-5.0); Alkaline Phosphatase 104 U/L (38-126); Blood Urea Nitrogen 40 mg/dl (7-17); Calcium 7.8 mg/dl (8.4-10.2); Carbon Dioxide 9 mmol/L (22-30); Chloride 114 mmol/L (98-107); Estimated Creatinine Clearance 18 ml/min; Glucose 158 mg/dl (70-99); Magnesium 1.5 mg/dl (1.6-2.3); Potassium 3.3 mmol/L (3.5-5.1); Sodium 133 mmol/L (135-145); Total Protein 5.1 g/dl (6.3-8.2); eGFR 36.64
[2025-02-22 07:21] LABS: Glucose - Point of Care 162 mg/dl (70-99)
[2025-02-22 07:38] VITALS: BP 105/44
[2025-02-22] MEDS: NSS 1000 IV (08:25)
[2025-02-22] MEDS: KCL 270 MEQ IV (08:31)
[2025-02-22] MEDS: SODIUM BICARBONATE 50 MEQ IV (08:31)
[2025-02-22] MEDS: PROTONIX IV 40 MG IV (08:41)
[2025-02-22] MEDS: FLUSH (NSS) 2 FLUSH IV (08:42)
[2025-02-22] MEDS: MAGNESIUM SULFATE 100 IV (08:42)
[2025-02-22] MEDS: SODIUM BICARBONATE 1075 MEQ IV ×2 (08:56→22:49)
[2025-02-22] MEDS: NOVOLOG FLEXPEN-LOW RESISTANCE 1 UNITS SC (09:17)
[2025-02-22] MEDS: NSS (PRESERVATIVE FREE) 10 ML IV (09:20)
[2025-02-22 11:15] LABS: Glucose - Point of Care 202 mg/dl (70-99)
[2025-02-22 11:30] VITALS: BP 108/51
--- NOTE | 2025-02-22 11:33 | PTCARENOTE ---
Pt stool study cancell by lab. We can only send one sample within a 72hr period. The system automatically will cancel order. The system can't be over ridden, per micro. will cont to monitor.
[2025-02-22 11:55] LABS: Glycohemoglobin (HgbA1c) 7.1 % (4.0-5.6)
--- NOTE | 2025-02-22 12:30 | W.PN.HOSP.TC ---
Today's Communication/Plan
-
Assessment / Plan
Assessment / Plan
General: No acute distress, appears uncomfortable
HEENT: NormoCephalic, Moist mucous membranes, Atraumatic
Respiratory: Clear and Non Labored Respirations
Cardiac: S1/S2 and Regular Rhythm; No Rub or Gallop
GI: Soft, moderate TTP diffusely
Musculoskeletal: No Edema, no deformity
Skin: Warm and dry
: NO Hammer
Neuro: Awake, Alert, Nonfocal/grossly intact
Psych: Calm and cooperative
Ms. Lawrence is an 84-year-old female with medical history of IDDM, gastroparesis, CKD stage IIIa, SIBO, and hypothyroidism who presented with fever and diarrhea. She had recently been treated with ciprofloxacin for small intestinal bacterial
overgrowth. In the ED she was febrile with a T of 102.1 �F. She had a leukocytosis of almost 16,000, and anion gap metabolic acidosis. She was admitted for further evaluation and management.
Diarrhea:
- C. difficile and norovirus negative, however will repeat C. difficile considering high suspicion for infection
- Salmonella, Shigella, Campylobacter pending
- Continue enhanced contact precautions
- Continue IV fluids and aggressive electrolyte repletion with copious diarrhea
- GI evaluation pending
- Leukocytosis and fever curve improving
- Supportive care, full liquid diet
- Will avoid antimotility agents such as loperamide until infection is ruled out
Nongap metabolic acidosis:
- Suspect due to GI losses
- Continue IV fluids with bicarb
- Frequent labs with electrolyte repletion as needed
- Treatment of underlying cause once identified but suspect GI infection
Electrolyte derangements:
- Secondary to GI losses
- Hypokalemia and hypomagnesemia being repleted
- Hyponatremia likely hypovolemic, continue resuscitative IV fluids with bicarb
CKD stage IIIa:
-Appears at baseline renal function
Anemia of chronic disease:
- Due to CKD
- Hemoglobin level appears close to baseline
IDDM:
- Sliding scale insulin for now
DVT prophylaxis: SCDs
CODE STATUS: Full code
Total time spent on today's encounter was 54 minutes
Anticipated Discharge: > 48 hours
Subjective/Interval History
-
Date of Service: February 22, 2025
Patient was seen and examined at bedside this morning. Not feeling well with ongoing watery diarrhea and abdominal discomfort.
Objective Data
-
Labs:
Laboratory Results
02/22/25 02/22/25
05:38 11:00
WBC 10.6
Hgb 9.3 L Cancelled
Hct 28.3 L Cancelled
Plt Count 201
Sodium 133 L Cancelled
Potassium 3.3 L Cancelled
Chloride 114 H Cancelled
Carbon Dioxide 9 L* Cancelled
BUN 40 H Cancelled
Creatinine 1.4 H Cancelled
Glucose 158 H Cancelled
Calcium 7.8 L Cancelled
Total Bilirubin 0.4
AST 19
ALT 44 H
Alkaline Phosphatase 104
Vital Signs:
Vital Signs
Temp Pulse Resp BP Pulse Ox
98.0 F 80 17 108/51 100
02/22/25 11:30 02/22/25 11:30 02/22/25 11:30 02/22/25 11:30 02/22/25 11:30
I&O
02/21/25 02/22/25 02/23/25
06:59 06:59 06:59
Intake Total 420 / 420
Balance 420 / 420
Review of Systems
-
History Source: Patient
All other systems: Reviewed and negative
Constitutional: Reports Fatigue and Weakness
Abdomen/GI: Reports Abdominal Pain
Physical Exam
-
General: No Apparent Distress
[2025-02-22] MEDS: NOVOLOG FLEXPEN-LOW RESISTANCE 2 UNITS SC (13:27)
--- NOTE | 2025-02-22 14:27 | CON.GI ---
Consultation
-
Date/Time Consultation Requested: 02/22/2025
Date/Time Consultation Performed: 02/22/2025
Performing Provider: Jimbo Vega
Reason for Consultation: diarrhea, fever
Medical History
Chief Complaint / HPI
Chief Complaint: diarrhea, fever
History of Present Illness:
Patient is a 84-year-old female with H/L of CKD, gastroparesis, DM, hypothyroidism, and SIBO who presents with fever and diarrhea. She started having bloating and diarrhea in past 24 hours. Family noted that she was also febrile with temperature
up to 102. She previously had been treated with Cipro for SIBO. Patient denies abdominal pain with her symptoms.
Past Medical History
Past Medical History: Hypercholesterolemia, Hypothyroidism, NIDDM and Other
Past Surgical History: Other
Social History
Tobacco: Non-Smoker
Alcohol: None
Family History
Family History: Reviewed & Not Pertinent
Allergies / Home Medications
Allergy/AdvReac Type Severity Reaction Status Date / Time
codeine Allergy Unknown Verified 12/20/24 07:11
niacin Allergy Unknown Verified 12/20/24 07:11
rifaximin (From Xifaxan) Allergy Rash Verified 02/21/25 17:12
�Medication �Instructions �Recorded
aspirin 81 mg chewable tablet 81 mg PO QPM Blood Clot 11/18/18
Prevention/Tx
levothyroxine 25 mcg tablet 25 mcg PO DAILY Thyroid 08/04/19
vit C 250 mg-vit E 90 mg-zinc 40 1 ea PO BID Supplement 08/04/19
mg-copper 1 [id number]
capsule (PreserVision AREDS-2)
calcium 600 mg (as 1 tab PO DAILY Supplement 05/15/23
carbonate)-vitamin D3 10 mcg (400
unit) tablet (Calcium 600 + D(3))
gabapentin 300 mg capsule 300 mg PO BID Pain 05/15/23
magnesium citrate 125 mg capsule 125 mg PO QPM Constipation 05/15/23
prucalopride 2 mg tablet 2 mg PO DAILY Constipation 05/15/23
(Motegrity)
Lactobac no.2-Bifidobac no.1-S. 1 cap PO DAILY Supplement 12/20/24
thermo 112.5 billion cell capsule
(Visbiome)
acetaminophen 650 mg 1,300 mg PO Q8HPRN PRN mild pain 12/20/24
tablet,extended release
polyethylene glycol 3350 17 gram 17 g PO QPM Constipation 12/20/24
oral powder packet
simethicone 180 mg capsule 180 mg PO DAILYPRN PRN gas 12/20/24
insulin aspart U-100 100 unit/mL See Rx Instructions .Route 02/21/25
(3 mL) subcutaneous pen (Novolog .COMPLEX PRN If glucose is
FlexPen U-100 Insulin aspart) elevated pre meal
insulin degludec 100 unit/mL (3 See Rx Instructions .Route .COMPLEX 02/21/25
mL) subcutaneous pen
pantoprazole 40 mg tablet,delayed 40 mg PO DAILY 02/21/25
release
sennosides 8.6 mg tablet (senna) 17.2 mg PO QPM 02/21/25
sodium bicarbonate 650 mg tablet 1,300 mg PO QPM 02/21/25
sodium bicarbonate 650 mg tablet 650 mg PO DAILY 02/21/25
Review of Systems
Vital Signs
Temp Pulse Resp BP Pulse Ox
98.0 F 80 17 108/51 100
02/22/25 11:30 02/22/25 11:30 02/22/25 11:30 02/22/25 11:30 02/22/25 11:30
Physical Exam
Exam
General: Well Developed and Well Nourished
HEENT: Normocephalic and Anicteric
Respiratory: Clear
Cardiac: S1/S2 and Regular Rhythm
GI: Soft, Non Tender, Non Distended and Normal Bowel Sounds
Results
WBC 10.6 10^3/uL (4.8-10.8) 02/22/25 05:38
Hgb Cancelled 02/22/25 11:00
Hct Cancelled 02/22/25 11:00
MCV 88.2 fL (81.0-99.0) 02/22/25 05:38
Plt Count 201 10^3/uL (130-400) 02/22/25 05:38
Absolute Neuts (auto) 8.4 10^3/uL (1.4-6.5) H 02/22/25 05:38
Sodium Cancelled 02/22/25 11:00
Potassium Cancelled 02/22/25 11:00
Chloride Cancelled 02/22/25 11:00
Carbon Dioxide Cancelled 02/22/25 11:00
BUN Cancelled 02/22/25 11:00
Creatinine Cancelled 02/22/25 11:00
Calcium Cancelled 02/22/25 11:00
Total Bilirubin 0.4 mg/dl (0.2-1.3) 02/22/25 05:38
AST 19 U/L (14-36) 02/22/25 05:38
ALT 44 U/L (0-35) H 02/22/25 05:38
Alkaline Phosphatase 104 U/L (38-126) 02/22/25 05:38
Lipase 77 U/L (23-300) 02/21/25 15:38
Diagnostic Image Results:
Prior GI Procedures:
EGD:
Colonoscopy:
Assessment / Plan
-
84-year-old female with H/CKD, gastroparesis, DM, hypothyroidism, and SIBO who presents with acute diarrhea and associated fever.
Impression / Rec:
1. Diarrhea / fever - etiology is unclear. Given her recent Cipro use there was a concern for C. difficile, however stool studies were negative for C. difficile and norovirus. She denies sick contacts and her family members do not have diarrhea.
Other stool studies are pending (Salmonella/Shigella culture and Campylobacter). She also had blood culture taken given her fever which showed no growth in 24 hours. She did have a fever of 102 on admission and leukocytosis. Given her fever I do
not think this is caused by her SIBO. Continue with supportive management IV fluid. FLD. Will order CT abdomen/pelvis with oral and IV contrast.
Total Time Spent with Patient (in minutes): 55
-
-
Thank you for consultation and allowing me to participate in the patient's care. Please call the web content manager GI physician during the after hours with any questions or concerns.
[2025-02-22 15:29] VITALS: BP 122/50
[2025-02-22 16:20] LABS: Glucose - Point of Care 253 mg/dl (70-99)
[2025-02-22 16:27] LABS: Urine Character Clear (Clear)
[2025-02-22 16:39] LABS: Urine Squamous Cell 16-20 /LPF (Few)
[2025-02-22] MEDS: NOVOLOG FLEXPEN-LOW RESISTANCE 3 UNITS SC (16:55)
[2025-02-22 19:17] VITALS: BP 122/58
[2025-02-22 20:55] LABS: Hematocrit 28.4 % (37.0-47.0); Hemoglobin 9.6 g/dL (12.0-16.0)
[2025-02-22 21:22] LABS: Blood Urea Nitrogen 39 mg/dl (7-17); Calcium 7.8 mg/dl (8.4-10.2); Carbon Dioxide 14 mmol/L (22-30); Chloride 111 mmol/L (98-107); Estimated Creatinine Clearance 21 ml/min; Glucose 205 mg/dl (70-99); Magnesium 1.8 mg/dl (1.6-2.3); Potassium 3.3 mmol/L (3.5-5.1); Sodium 134 mmol/L (135-145); eGFR 44.08
[2025-02-22 22:29] LABS: Glucose - Point of Care 175 mg/dl (70-99)
[2025-02-22 23:17] VITALS: BP 121/54
[2025-02-23 03:22] VITALS: BP 129/52
[2025-02-23 06:00] VITALS: BMI 17.4
[2025-02-23] MEDS: OMNIPAQUE 25 ML PO (06:08)
--- NOTE | 2025-02-23 07:09 | W.PN.HOSP.TC ---
Addendum entered and electronically signed by Marcus Lopez DO 02/23/25 15:02:
CDI: Underweight
Original Note:
Today's Communication/Plan
-
- replete K+ and Mg2+
- monitor BMP
- monitor VS
- f/u GI recs
- consult PT/OT
Assessment / Plan
Assessment / Plan
84 yo F PMH IDDM, gastroparesis, CKD stage IIIa, SIBO, and hypothyroidism who presented with fever and diarrhea. She had recently been treated with ciprofloxacin for small intestinal bacterial overgrowth. In the ED she was febrile with a T of
102.1 �F. She had a leukocytosis of almost 16,000, and anion gap metabolic acidosis. She was admitted for further evaluation and management.
Diarrhea:
- C. difficile and norovirus negative x2
- Salmonella, Shigella, Campylobacter pending
- Continue enhanced contact precautions
- Continue IV fluids and aggressive electrolyte repletion with copious diarrhea
- per GI, continue CLD and monitor electrolytes
- Leukocytosis resolved and fever curve improving
- Supportive care, full liquid diet
- Will avoid antimotility agents such as loperamide until infection is ruled out
Nongap metabolic acidosis:
- Suspect due to GI losses
- Continue IV fluids with bicarb
- Frequent labs with electrolyte repletion as needed
- Treatment of underlying cause once identified but suspect GI infection
- resume home sodium bicarbonate PO 650mg AM, 1300mg PM
Hypokalemia
- 3.0, 40mEq replete ongoing
- additional 40mEq in PM
- 1g magnesium sulfate IV also ordered
- monitor BMP
Hyponatremia
- slightly low at 134
- monitor BMP
Disposition
- consult PT/OT
CKD stage IIIa:
-Appears at baseline renal function
Anemia of chronic disease:
- Due to CKD
- Hemoglobin level appears close to baseline
IDDM:
- Sliding scale insulin for now
DVT prophylaxis: SCDs
CODE STATUS: Full code
Anticipated Discharge: 24 - 48 hours
Subjective/Interval History
-
Date of Service: February 23, 2025
84 yo F PMH CKD, gastroparesis, DM, hypothyroidism, and SIBO p/w fever and diarrhea with initial leukocytosis to 15.8
Recently had SIBO was given ciprofloxacin several weeks ago, This admission c diff testing was negative x2, other microbiology was unremarkable
GI has been consulted. CT cancelled. unclear
This morning, granddaughter is at bedside. Patient endorses weakness but reports that the diarrhea is improving.
Objective Data
-
Labs:
Laboratory Results
02/22/25 02/23/25
20:49 06:00
Hgb 9.6 L
Hct 28.4 L
Sodium 134 L Pending
Potassium 3.3 L Pending
Chloride 111 H Pending
Carbon Dioxide 14 L* Pending
BUN 39 H Pending
Creatinine 1.2 H Pending
Glucose 205 H Pending
Calcium 7.8 L Pending
K 3.0
CO2 18
Na 134
Cl 110
BUN 34
Cr 1.2
Phos 3.4
Mag 1.7
Vital Signs:
Vital Signs
Temp Pulse Resp BP Pulse Ox
98.6 F 102 17 129/52 100
02/23/25 03:22 02/23/25 03:22 02/23/25 03:22 02/23/25 03:22 02/23/25 05:37
I&O
02/22/25 02/23/25 02/24/25
06:59 06:59 06:59
Intake Total 420 / 420 1280 / 1280
Output Total 30 / 30
Balance 420 / 420 1250 / 1250
Review of Systems
-
History Source: Patient
Constitutional: Reports Fatigue and Weakness
EENT: Reports No Symptoms Reported
Respiratory: Reports No Symptoms
Cardiac: Reports No Symptoms
Abdomen/GI: Reports Diarrhea
Genitourinary: Reports No Symptoms
Skin: Reports No Symptoms
Physical Exam
-
General: No Apparent Distress
HEENT: Normocephalic and Atraumatic
GI: Soft and Nontender
Genito-urinary: Other (no suprapubic tenderness)
Neuro: Awake and Alert
Psych: Calm
[2025-02-23 07:55] LABS: Glucose - Point of Care 167 mg/dl (70-99)
[2025-02-23 08:01] VITALS: BP 119/54
[2025-02-23 08:30] LABS: Blood Urea Nitrogen 34 mg/dl (7-17); Calcium 7.8 mg/dl (8.4-10.2); Carbon Dioxide 18 mmol/L (22-30); Chloride 110 mmol/L (98-107); Estimated Creatinine Clearance 21 ml/min; Glucose 170 mg/dl (70-99); Magnesium 1.7 mg/dl (1.6-2.3); Potassium 3.0 mmol/L (3.5-5.1); Sodium 134 mmol/L (135-145); eGFR 44.08
--- NOTE | 2025-02-23 08:53 | W.PN.GI.CBS2 ---
Addendum entered and electronically signed by Jimbo Vega MD 02/23/25 12:53:
I saw and examined the patient.
The PA's note was reviewed and I agree with the note.
Comment:
Her diarrhea has improved somewhat. Continues to deny abdominal pain. CT abd/pel w/ oral contrast was ordered but pt refusing oral contrast. Afebrile o/n. Continue with diet, ? colonoscopy during inpt.
Addendum entered and electronically signed by CALLUM Awad 02/23/25 10:08:
clarified with son pt has been on Mag citrate 1 tablet daily but admits to recent liquid mag citrate several weeks ago. Not sure if mag citrate playing a role in recurrent acidosis.
Addendum entered and electronically signed by CALLUM Awad 02/23/25 10:04:
will add abd X ray may need to consider eventual colonoscopy as last was years ago.
Original Note:
Today's Communication / Plan
-
Pt with less diarrhea and no abdominal pain but some lethargy
she declines contrast for CT so will hold-- alternative contrast was for recent MRI
Etiology of underlying recurrent acidosis with GI symptoms unclear - doubt SIBO planning a role
no further fever since 02/21
repeat c-diff neg, other cx pending
family updated
cont clear diet advance as tolerated
replete electrolytes per hospitalist team
Assessment / Plan
-
Pt is a 84yo with hx NIDDM, CKD, choledocholithiasis, hypothyroidism, anemia, prior master, recent humerus fracture, chronic pain, gastroparesis and constipation. She has been followed by Dr. Ross in office and chronic issues with wt loss,
constipation on chronic bowel regiment with mag citrate, motegrity, senna , early satiety, belching, and gastroparesis. She had recent SIBO testing + and treated with Cipro several weeks ago. She was noted last week with increased belching then
progressed to diarrhea and fever. Pt with similar admission several weeks ago.
12/23/24 CT with IV contrast
1. Diffuse liver disease with increased attenuation throughout the liver suggesting either diffuse iron deposition or amiodarone therapy.
2. Moderate to severe intrahepatic pneumobilia.
3. Previous cholecystectomy.
4. Mild wall thickening in the stomach and jejunum suggesting a gastroenteritis.
5. Severe chronic left renal disease.
6. New mild dilatation of the right renal collecting system.
7. Severe calcific atherosclerotic plaque in the abdominal aorta and femoral arteries.
8. Mild diffuse colonic distention.
9. Moderate distention of the urinary bladder.
10. Acute superior endplate fracture of L1.
11. Very severe discogenic degenerative disease at L4/L5.
12. Mild cardiomegaly with severe left atrial enlargement.
13. Severe calcific atherosclerotic plaque in the coronary arteries.
01/22/25 MR Enterography
1. Diffuse liver disease with increased attenuation throughout the liver suggesting either diffuse iron deposition or amiodarone therapy.
2. Moderate to severe intrahepatic pneumobilia.
3. Previous cholecystectomy.
4. Mild wall thickening in the stomach and jejunum suggesting a gastroenteritis.
5. Severe chronic left renal disease.
6. New mild dilatation of the right renal collecting system.
7. Severe calcific atherosclerotic plaque in the abdominal aorta and femoral arteries.
8. Mild diffuse colonic distention.
9. Moderate distention of the urinary bladder.
10. Acute superior endplate fracture of L1.
11. Very severe discogenic degenerative disease at L4/L5.
12. Mild cardiomegaly with severe left atrial enlargement.
13. Severe calcific atherosclerotic plaque in the coronary arteries.
-recurrent metabolic acidosis on admission
-belching/nausea
-diarrhea
-fever
-hypokalemia/hyponatremia
-CT with diffuse liver disease with change of iron deposition/amiodarone therapy
-wall thickening of stomach and jejunum suggest gastroenteritis 04/2022 at [facility] with mild gastritis, normal small bowel
-renal collecting systems dilation noted on prior MRI
-mild colonic distention
-L1 acute fracture per CT
-recurrent AL on admission now improving
-wt loss
-hypoalbuminemia
-L1 fx per MRI 01/2025
other medical problems:
-pneumobilia with hx prior ERCP/master
-gastroparesis
-constipation
-CKD
-anemia
-chronic pain
-DM
-DDD
-CM
Impression / Rec:
Pt with less diarrhea and no abdominal pain but some lethargy
she declines contrast for CT so will hold-- alternative contrast was for recent MRI
Etiology of underlying recurrent acidosis with GI symptoms unclear - doubt SIBO planning a role
no further fever since 02/21
repeat c-diff neg, other cx pending
family updated
cont clear diet advance as tolerated
replete electrolytes per hospitalist team
Subjective
Subjective
Date of Service: February 23, 2025
some lethargy this am, diarrhea setting down on clear diet -- pt declines to proceed with CT as does not feel she can tolerate contrast, denies abdominal pain
Objective
Data Reviewed
Laboratory Data:
Laboratory Results
02/22/25 20:49
02/23/25 07:25
Laboratory Results
Phosphorus 3.4 mg/dl (2.5-4.5) 02/23/25 07:25
Magnesium 1.7 mg/dl (1.6-2.3) 02/23/25 07:25
Total Bilirubin 0.4 mg/dl (0.2-1.3) 02/22/25 05:38
AST 19 U/L (14-36) 02/22/25 05:38
ALT 44 U/L (0-35) H 02/22/25 05:38
Alkaline Phosphatase 104 U/L (38-126) 02/22/25 05:38
Lipase 77 U/L (23-300) 02/21/25 15:38
Vital Signs and I&O:
Vital Signs
Temp Pulse Resp BP Pulse Ox
98.5 F 79 16 119/54 99
02/23/25 08:01 02/23/25 08:01 02/23/25 08:01 02/23/25 08:01 02/23/25 08:01
I&O
02/22/25 02/23/25 02/24/25
06:59 06:59 06:59
Intake Total 420 / 420 1280 / 1280
Output Total 30 / 30
Balance 420 / 420 1250 / 1250
Physical Exam
Physical Exam
HEENT: Anicteric and Moist mucous membranes
Cardiology: Normal Sinus Rhythm
Pulmonary: Clear
GI: Soft, Non Distended and Non Tender
Extremities: No Edema
Neuro: Other (sleepy but arousable )
[2025-02-23] MEDS: NSS (PRESERVATIVE FREE) 10 ML IV (09:13)
[2025-02-23] MEDS: PROTONIX IV 40 MG IV (09:13)
[2025-02-23] MEDS: NOVOLOG FLEXPEN-LOW RESISTANCE 1 UNITS SC ×2 (09:14→17:37)
[2025-02-23] MEDS: KCL 270 MEQ IV (09:36)
--- NOTE | 2025-02-23 10:00 | PTCARENOTE ---
Patient not tolerating PO contrast. GI came to assess patient. Order cancelled. ABD xray ordered.
[2025-02-23] MEDS: SODIUM BICARBONATE 1075 MEQ IV (11:10)
[2025-02-23 11:35] VITALS: BP 110/49
--- NOTE | 2025-02-23 12:06 | CM ---
Reviewed the chart notes and spoke with the patient and her son at the bedside. The patient resides alone in a two story home with two steps to enter. There is a stair glide to second level. Patient ambulates with rollator and has shower rails in
bathroom. The patient reports no VN or SNF in the past. Son and [id number] live locally and assist as needed. The patient confirmed her pharmacy of choice is [facility]. CM continues to be available to patient/family and is
monitoring medical plan for needs at discharge.
Plan: Discharge plans will depend on the patient's progress.
[2025-02-23 12:16] LABS: Glucose - Point of Care 255 mg/dl (70-99)
[2025-02-23] MEDS: NOVOLOG FLEXPEN-LOW RESISTANCE 3 UNITS SC (12:40)
[2025-02-23] MEDS: CLARITIN 10 MG PO (12:56)
--- NOTE | 2025-02-23 14:14 | PN.CDI ---
CDI
- -
CDI:
Physician Documentation Request
Admit Date: 02/21/25 18:30
Dear Doctor Alfie,
Patient admitted with diarrhea.
Please review the following and provide your response in the progress notes.
Clinical Indicators:
Height: 5' 0'
Weight: 89 lb 1 oz
BMI: 17.4
Please provide an associated diagnosis related to the abnormal BMI, such as:
Underweight
Cachectic
Anorexia
Other
BMI < or = to 19
Underweight
Weight Loss
Cachectic
Anorexia
Use of terms such as suspected, likely, concern for, or probable (associated with a specific diagnosis that is being evaluated, monitored, or treated as if it exists) are acceptable and can be coded in the inpatient setting, when documented at the
time of discharge.
Thank you,
Loida HOPE,RN,CCDS
CDI Specialist
Available via [place] text
Please use your independent medical judgment in providing your response.
[2025-02-23] MEDS: MAGNESIUM SULFATE 102 GRAMS IV (15:42)
[2025-02-23 16:02] VITALS: BP 106/51
[2025-02-23] MEDS: ATARAX 10 MG PO (17:35)
[2025-02-23] MEDS: SODIUM BICARBONATE 1300 MG PO (17:36)
[2025-02-23 17:40] LABS: Glucose - Point of Care 164 mg/dl (70-99)
--- NOTE | 2025-02-23 17:45 | PTCARENOTE ---
Patient c/o of lower back itching/ burning. Rash noted on lower back and groin area. IV mag infusing. MD made aware. Patient received Claritin earlier for mild itching and changed sheets to hypoallergenic. Resident made aware. Resident came to
assess patient. Atarax ordered and administered. Home dose gabapentin restarted.
[2025-02-23 19:17] VITALS: BP 111/60
[2025-02-23] MEDS: NEURONTIN 300 MG PO (20:11)
[2025-02-23 21:48] LABS: Glucose - Point of Care 258 mg/dl (70-99)
[2025-02-23 23:08] VITALS: BP 128/70
[2025-02-24] VITALS (14 sets, daily range): BP systolic 96–131; BP diastolic 42–58; BMI 17.7
--- NOTE | 2025-02-24 07:08 | W.PN.HOSP.TC ---
Today's Communication/Plan
-
- replete K+
- consider increase to gabapentin
- flex sig today
- f/u GI recs
- f/u PT-OT
Assessment / Plan
Assessment / Plan
84 yo F PMH IDDM, gastroparesis, CKD stage IIIa, SIBO, and hypothyroidism who presented with fever and diarrhea. She had recently been treated with ciprofloxacin for small intestinal bacterial overgrowth. In the ED she was febrile with a T of
102.1 �F. She had a leukocytosis of almost 16,000, and anion gap metabolic acidosis. She was admitted for further evaluation and management.
Diarrhea:
- C. difficile and norovirus negative x2
- Salmonella, Shigella, Campylobacter pending
- per GI, continue CLD and monitor electrolytes
- Leukocytosis resolved and afebrile
- Supportive care, full liquid diet
- Will avoid antimotility agents such as loperamide until infection is ruled out
- replete K+
- encourage PO intake
- PT/OT consulted
- f/u GI recs
Erythematous rash on back/thigh
- unclear trigger, could be related to presumed GI infection or contact dermatitis/irritation
- reports burning pain
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
- son reports that her outpatient nephrology says 1200mg gabapentin is okay
- consider increasing gabapentin
Nongap metabolic acidosis:
- Suspect due to GI losses
- Continue IV fluids with bicarb
- Frequent labs with electrolyte repletion as needed
- Treatment of underlying cause once identified but suspect GI infection
- resume home sodium bicarbonate PO 650mg AM, 1300mg PM
Hypokalemia
- 3.3, consider replete 40 mEq KCl PO
- monitor BMP
Hyponatremia
- 136
- monitor BMP
Disposition
- consult PT/OT
CKD stage IIIa:
-Appears at baseline renal function
- 1.3
Anemia of chronic disease:
- Due to CKD
- Hemoglobin level appears close to baseline
IDDM:
- Sliding scale insulin for now
DVT prophylaxis: SCDs
CODE STATUS: Full code
BMI: underweight
Anticipated Discharge: 24 - 48 hours
Subjective/Interval History
-
Date of Service: February 24, 2025
frequency of diarrhea is less, but still watery
complaining of burning pain on back/thigh
feels tired
Objective Data
-
Labs:
Laboratory Results
02/24/25
06:00
WBC Pending
Hgb Pending
Hct Pending
Plt Count Pending
Sodium Pending
Potassium Pending
Chloride Pending
Carbon Dioxide Pending
BUN Pending
Creatinine Pending
Glucose Pending
Calcium Pending
WBC 9.7 from 10.6
Hgb 10.6
K 3.3
Bicarb 19
Cr 1.3 from 1.2
Phos 3.3
Mg 1.9
Vital Signs:
Vital Signs
Temp Pulse Resp BP Pulse Ox
98.1 F 80 16 117/55 99
02/24/25 03:12 02/24/25 03:12 02/24/25 03:12 02/24/25 03:12 02/24/25 03:47
I&O
02/23/25 02/24/25 02/25/25
06:59 06:59 06:59
Intake Total 1280 / 1280 2151
Output Total 30 / 30
Balance 1250 / 1250 2151
Review of Systems
-
History Source: Patient
Constitutional: Reports Fatigue
EENT: Reports No Symptoms Reported
Respiratory: Reports No Symptoms
Cardiac: Reports No Symptoms
Abdomen/GI: Reports No Symptoms
Genitourinary: Reports No Symptoms
Musculoskeletal: Reports No Symptoms
Skin: Reports Rash (back/thigh)
Neuro: Reports No Symptoms
Endocrine: Reports No Symptoms
Physical Exam
-
General: No Apparent Distress
HEENT: Normocephalic
Skin: Other (erythema on back/thigh, nontender, endorses burning pain)
[2025-02-24 07:37] LABS: Hematocrit 31.3 % (37.0-47.0); Hemoglobin 10.3 g/dL (12.0-16.0); Mean Corp Hgb Conc. 32.9 g/dL (33.0-37.0); Mean Corpuscular Volume 87.9 fL (81.0-99.0); Platelet Count 210 10^3/uL (130-400); Red Cell Dist. Width 14.3 % (11.5-14.5)
[2025-02-24 08:02] LABS: Blood Urea Nitrogen 31 mg/dl (7-17); Calcium 8.1 mg/dl (8.4-10.2); Carbon Dioxide 19 mmol/L (22-30); Chloride 110 mmol/L (98-107); Estimated Creatinine Clearance 20 ml/min; Glucose 165 mg/dl (70-99); Magnesium 1.9 mg/dl (1.6-2.3); Potassium 3.3 mmol/L (3.5-5.1); Sodium 136 mmol/L (135-145); eGFR 40.05
[2025-02-24 08:11] LABS: Glucose - Point of Care 170 mg/dl (70-99)
[2025-02-24] MEDS: PROTONIX IV 40 MG IV (09:03)
[2025-02-24] MEDS: NSS (PRESERVATIVE FREE) 10 ML IV (09:04)
[2025-02-24] MEDS: SODIUM BICARBONATE 650 MG PO (09:04)
[2025-02-24] MEDS: NEURONTIN 300 MG PO ×2 (09:04→20:26)
[2025-02-24] MEDS: NOVOLOG FLEXPEN-LOW RESISTANCE SC ×4 (09:05→18:14)
--- NOTE | 2025-02-24 09:37 | W.PN.UPDATE ---
Update Note
Progress Note Update
She continues to have diarrhea despite CLD
D/w patient and family they are agreeable to flex sigm today
2 enemas ordered and d/w RN
C/w NPO
Risk/benefits discussed will follow with you
Full GI procedure note to follow later.
[2025-02-24] MEDS: NEURONTIN 100 MG PO (10:16)
[2025-02-24] MEDS: FLEET PHOSPHATE ENEMA-ADULT 135 ML RECTAL ×2 (10:16)
[2025-02-24] MEDS: CLARITIN 10 MG PO (10:16)
[2025-02-24 11:37] LABS: Glucose - Point of Care 153 mg/dl (70-99)
[2025-02-24 12:44] LABS: Glucose - Point of Care 146 mg/dl (70-99)
[2025-02-24 13:43] LABS: Venous Blood Gas B.E. -6.3 mmol/L (-4 to +4); Venous Blood Gas O2 Sat % 99.0 %
[2025-02-24 13:54] LABS: Blood Urea Nitrogen 30 mg/dl (7-17); Calcium 8.0 mg/dl (8.4-10.2); Carbon Dioxide 20 mmol/L (22-30); Chloride 109 mmol/L (98-107); Estimated Creatinine Clearance 22 ml/min; Glucose 176 mg/dl (70-99); Potassium 3.3 mmol/L (3.5-5.1); Sodium 136 mmol/L (135-145); eGFR 44.08
--- NOTE | 2025-02-24 14:50 | CM ---
Reviewed the chart notes. Patient had a flexible sigmoidoscopy. CM continues to be available to patient/family and is monitoring medical plan for needs at discharge.
Plan: Discharge plans will depend on the patient's progress. PT/OT evaluations pending.
[2025-02-24] MEDS: NSS 1000 IV (15:55)
[2025-02-24] MEDS: KCL 40 MEQ PO (15:55)
[2025-02-24 18:07] LABS: Glucose - Point of Care 148 mg/dl (70-99)
[2025-02-24] MEDS: SODIUM BICARBONATE 1300 MG PO (18:17)
[2025-02-24 21:42] LABS: Glucose - Point of Care 154 mg/dl (70-99)
[2025-02-25] MEDS: NSS 1000 IV (01:00)
[2025-02-25 03:02] VITALS: BP 126/52
[2025-02-25 06:00] VITALS: BMI 17.9
[2025-02-25 07:00] VITALS: BP 110/46
--- NOTE | 2025-02-25 07:08 | W.PN.HOSP.TC ---
Addendum entered and electronically signed by Marcus Lopez DO 02/26/25 18:21:
CDI: Sepsis, POA. Improved with IVF and initiation of Abx
Original Note:
Today's Communication/Plan
-
- salmonella diarrhea
- LR 65cc/hr
- antibiotics to be started
- monitor electrolytes
- f/u PT/OT recs
Assessment / Plan
Assessment / Plan
84 yo F PMH IDDM, gastroparesis, CKD stage IIIa, SIBO, and hypothyroidism who presented with fever and diarrhea.
Diarrhea due to Salmonella:
- Salmonella returned positive today
- per GI, continue CLD and monitor electrolytes
- Leukocytosis resolved and afebrile
- Supportive care, full liquid diet
- encourage PO intake
- PT/OT consulted
- f/u GI recs
- reported increase in diarrhea frequency
- LR 65 cc/hr started
- start antibiotics
Erythematous rash on back/thigh/arm
- unclear trigger, could be related to presumed GI infection or contact dermatitis/irritation
- could also be related to the cream that was applied
- no longer burning pain
- continue gabapentin 300mg bid
Nongap metabolic acidosis:
- Suspect due to GI losses
- Continue IV fluids with bicarb
- Frequent labs with electrolyte repletion as needed
- Treatment of underlying cause once identified but suspect GI infection
- resume home sodium bicarbonate PO 650mg AM, 1300mg PM
- await new labs
Hypokalemia
- labs pending
- monitor BMP
Hyponatremia
- labs pending
- monitor BMP
Disposition
- consult PT/OT
CKD stage IIIa:
-Appears at baseline renal function
- 1.3
Anemia of chronic disease:
- Due to CKD
- Hemoglobin level appears close to baseline
IDDM:
- Sliding scale insulin for now
DVT prophylaxis: SCDs
CODE STATUS: Full code
BMI: underweight
Disposition: son would prefer to take Ms. Lawrence home when she's ready for discharge. He can manage everything including driving her to PT appointments, except for the diarrhea, he's wondering if/when that will resolve.
Anticipated Discharge: 24 - 48 hours
Subjective/Interval History
-
Date of Service: February 25, 2025
son feels that the diarrhea has increased, more watery
the rash is on arms but no longer reported as burning
flex sig yesterday
Objective Data
-
Labs:
Laboratory Results
02/25/25
06:00
WBC Pending
Hgb Pending
Hct Pending
Plt Count Pending
Sodium Pending
Potassium Pending
Chloride Pending
Carbon Dioxide Pending
BUN Pending
Creatinine Pending
Glucose Pending
Calcium Pending
electrolytes within normal limits
Cr 1.2
Microbiology:
stool test came back positive for salmonella
Organism 1 Salmonella species
1. Salmonella species
M.I.C. RX
--------- ---
Ampicillin <=8 S
Tetracycline <=4 S
Trimethoprim/Sulfamethoxazole <=2/38 S
flexible sigmoidoscopy 02/24/2025:
Findings:
- A patchy area of moderately erythematous mucosa was found in the
sigmoid colon. Biopsies were taken with a cold forceps for
histology.
- External and internal hemorrhoids were found during retroflexion.
The hemorrhoids were moderate.
- Multiple medium-mouthed diverticula were found in the sigmoid
colon.
Impression:
- Erythematous mucosa in the sigmoid colon. Biopsied.
- External and internal hemorrhoids.
- Diverticulosis in the sigmoid colon.
Recommendation:
- Patient has a contact number available for emergencies. The
signs and symptoms of potential delayed complications were discussed
with the patient. Return to normal activities tomorrow. Written
discharge instructions were provided to the patient.
- Await pathology results.
- Advance to low residue diet
- Hospitalist and family updated with results.
Vital Signs:
Vital Signs
Temp Pulse Resp BP Pulse Ox
98.8 F 106 18 126/52 97
02/25/25 04:14 02/25/25 03:02 02/25/25 03:02 02/25/25 03:02 02/25/25 03:02
afebrile
I&O
02/24/25 02/25/25 02/26/25
06:59 06:59 06:59
Intake Total 2151 1440 / 1440
Balance 2151 / 2151 1440 / 1440
Review of Systems
-
History Source: Patient
Constitutional: Reports Fatigue
EENT: Reports No Symptoms Reported
Respiratory: Reports No Symptoms
Cardiac: Reports No Symptoms
Abdomen/GI: Reports Diarrhea
Genitourinary: Reports No Symptoms
Musculoskeletal: Reports No Symptoms
Skin: Reports Rash (back/thigh)
Neuro: Reports No Symptoms
Endocrine: Reports No Symptoms
Physical Exam
-
General: No Apparent Distress
HEENT: Normocephalic
GI: Soft and Nontender
Skin: Other (erythema on back/thigh, nontender, now also on arms, but no burning )
[2025-02-25 07:52] LABS: Glucose - Point of Care 86 mg/dl (70-99)
[2025-02-25 08:41] LABS: Hematocrit 34.9 % (37.0-47.0); Hemoglobin 11.4 g/dL (12.0-16.0); Mean Corp Hgb Conc. 32.7 g/dL (33.0-37.0); Mean Corpuscular Volume 88.8 fL (81.0-99.0); Platelet Count 244 10^3/uL (130-400); Red Cell Dist. Width 14.6 % (11.5-14.5)
[2025-02-25] MEDS: PROTONIX IV 40 MG IV (08:47)
[2025-02-25] MEDS: SODIUM BICARBONATE 650 MG PO (08:47)
[2025-02-25] MEDS: NSS (PRESERVATIVE FREE) 10 ML IV (08:47)
[2025-02-25] MEDS: NEURONTIN 300 MG PO (08:47)
[2025-02-25] MEDS: NOVOLOG FLEXPEN-LOW RESISTANCE SC ×2 (08:50→12:25)
[2025-02-25 09:11] LABS: Blood Urea Nitrogen 20 mg/dl (7-17); Calcium 7.6 mg/dl (8.4-10.2); Carbon Dioxide 18 mmol/L (22-30); Chloride 111 mmol/L (98-107); Estimated Creatinine Clearance 22 ml/min; Glucose 138 mg/dl (70-99); Magnesium 1.7 mg/dl (1.6-2.3); Potassium 4.1 mmol/L (3.5-5.1); Sodium 136 mmol/L (135-145); eGFR 44.08
[2025-02-25] MEDS: LR 1000 IV (09:35)
--- NOTE | 2025-02-25 10:59 | CM ---
Reviewed the chart notes and spoke with the patient's son and family at the bedside. Per son, plan will be to take patient home and do outtpatient PT/OT at the ambulatory center. Patient with salmonella diarrhea. CM continues to be available to
patient/family and is monitoring medical plan for needs at discharge.
Plan: Discharge to home when medically stable with outpatient PT/OT.
[2025-02-25 11:00] VITALS: BP 112/46
--- NOTE | 2025-02-25 11:26 | W.PN.GI.CBS2 ---
Addendum entered and electronically signed by Sharon Conley Do, MD 02/25/25 12:44:
I saw and examined the patient.
The STEMMER MACHINE's note was reviewed and I agree with the note.
Comment: She continues to have loose nonbloody diarrhea. Tolerating more oral intake this AM but appetite still poor. Denies abd pain or N/V. Vitals AF stable, elderly W NAD more awaken NTTP. Diffuse erythematous rash over trunk. Labs +
salmonella in stool studies. Flex sigm 02/24 with mild colitis in sigmoid, diverticulosis and IH.
Impression
- Salmonella colitis with fever and rash
Confirmed on stool studies 02/25
Blood cultures negative
- Positive UA
- IBS
- DM
- CKD
- h/o constipation
- H/o gastroparesis
Recommendations
- Agree with zosyn for immunocompetent to complete total 7 day course of abx
- Serial skin exam of rash
- Discussed safe food handling
- Monitor stool output
- Hold all laxatives
- Oral ensure clear supplement
- Await results of bx results
Will follow with you. Family updated bedside
Original Note:
Today's Communication / Plan
-
still with diarrhea and culture now confirms salmonella and + UTI
s/p flex sig 02/24 bx pending
rash can also be associated with salmonella
source of ingestion unclear
fever improving
Zosyn added
monitor intakes
discussed with family if not eating would need DHT next as TPN risk for further infection
if continued chronic issues with belching consider OP colonoscopy when improved to eval right colon
family updated
Keep electrolytes corrected
Assessment / Plan
-
Pt is a 84yo with hx NIDDM, CKD, choledocholithiasis, hypothyroidism, anemia, prior master, recent humerus fracture, chronic pain, gastroparesis and constipation. She has been followed by Dr. Ross in office and chronic issues with wt loss,
constipation on chronic bowel regiment with mag citrate, motegrity, senna , early satiety, belching, and gastroparesis. She had recent SIBO testing + and treated with Cipro several weeks ago. She was noted last week with increased belching then
progressed to diarrhea and fever. Imaging and flex as noted below Pt with similar admission several weeks ago. On admission noted with + UTI and stool cx + salmonella.
12/23/24 CT with IV contrast
1. Diffuse liver disease with increased attenuation throughout the liver suggesting either diffuse iron deposition or amiodarone therapy.
2. Moderate to severe intrahepatic pneumobilia.
3. Previous cholecystectomy.
4. Mild wall thickening in the stomach and jejunum suggesting a gastroenteritis.
5. Severe chronic left renal disease.
6. New mild dilatation of the right renal collecting system.
7. Severe calcific atherosclerotic plaque in the abdominal aorta and femoral arteries.
8. Mild diffuse colonic distention.
9. Moderate distention of the urinary bladder.
10. Acute superior endplate fracture of L1.
11. Very severe discogenic degenerative disease at L4/L5.
12. Mild cardiomegaly with severe left atrial enlargement.
13. Severe calcific atherosclerotic plaque in the coronary arteries.
01/22/25 MR Enterography
1. Diffuse liver disease with increased attenuation throughout the liver suggesting either diffuse iron deposition or amiodarone therapy.
2. Moderate to severe intrahepatic pneumobilia.
3. Previous cholecystectomy.
4. Mild wall thickening in the stomach and jejunum suggesting a gastroenteritis.
5. Severe chronic left renal disease.
6. New mild dilatation of the right renal collecting system.
7. Severe calcific atherosclerotic plaque in the abdominal aorta and femoral arteries.
8. Mild diffuse colonic distention.
9. Moderate distention of the urinary bladder.
10. Acute superior endplate fracture of L1.
11. Very severe discogenic degenerative disease at L4/L5.
12. Mild cardiomegaly with severe left atrial enlargement.
13. Severe calcific atherosclerotic plaque in the coronary arteries.
8/16 flex sig - A patchy area of moderately erythematous mucosa was found in the
sigmoid colon. Biopsies were taken with a cold forceps for
histology.
- External and internal hemorrhoids were found during retroflexion.
The hemorrhoids were moderate.
- Multiple medium-mouthed diverticula were found in the sigmoid
colon.
bx pending
-recurrent metabolic acidosis on admission
-belching/nausea
-diarrhea cx + salmonella
-body rash -- possible salmonella related
-gram neg UTI
-fever/leukocytosis
-hypokalemia/hyponatremia
-CT with diffuse liver disease with change of iron deposition/amiodarone therapy
-wall thickening of stomach and jejunum suggest gastroenteritis 04/2022 at [facility] with mild gastritis, normal small bowel
-renal collecting systems dilation noted on prior MRI
-mild colonic distention
-L1 acute fracture per CT
-recurrent AL on admission now improving
-wt loss
-hypoalbuminemia
-L1 fx per MRI 01/2025
other medical problems:
-pneumobilia with hx prior ERCP/master
-gastroparesis
-constipation
-CKD
-anemia
-chronic pain
-DM
-DDD
-CM
Impression / Rec:
still with diarrhea and culture now confirms salmonella and + UTI
s/p flex sig 02/24 bx pending
rash can also be associated with salmonella
source of ingestion unclear
fever improving
Zosyn added per medical team
monitor intakes
discussed with family if not eating would need DHT next as TPN risk for further infection
if continued chronic issues with belching consider OP colonoscopy when improved to eval right colon
family updated
Keep electrolytes corrected
Subjective
Subjective
Date of Service: February 25, 2025
still with loose stool, on low residue diet - minimal intakes with 2 crackers and small amount of liquid
Objective
Data Reviewed
Laboratory Data:
Laboratory Results
02/25/25 08:32
02/25/25 08:32
Laboratory Results
Phosphorus 3.0 mg/dl (2.5-4.5) 02/25/25 08:32
Magnesium 1.7 mg/dl (1.6-2.3) 02/25/25 08:32
Total Bilirubin 0.4 mg/dl (0.2-1.3) 02/22/25 05:38
AST 19 U/L (14-36) 02/22/25 05:38
ALT 44 U/L (0-35) H 02/22/25 05:38
Alkaline Phosphatase 104 U/L (38-126) 02/22/25 05:38
Lipase 77 U/L (23-300) 02/21/25 15:38
Vital Signs and I&O:
Vital Signs
Temp Pulse Resp BP Pulse Ox
98 F 95 16 110/46 98
02/25/25 07:00 02/25/25 07:00 02/25/25 07:00 02/25/25 07:00 02/25/25 07:00
I&O
02/24/25 02/25/25 02/26/25
06:59 06:59 06:59
Intake Total 2151 1440 / 1440
Balance 2151 / 2151 1440 / 1440
Physical Exam
Physical Exam
HEENT: Anicteric and Moist mucous membranes
Cardiology: Normal Sinus Rhythm
Pulmonary: Clear
GI: Soft, Non Distended and Non Tender
Extremities: No Edema
Neuro: Other (sleepy but arousable )
[2025-02-25 12:02] LABS: Glucose - Point of Care 114 mg/dl (70-99)
[2025-02-25] MEDS: VISBIOME 1 CAP PO (12:24)
[2025-02-25] MEDS: ZOSYN 50 IV ×2 (12:24→17:28)
[2025-02-25 15:00] VITALS: BP 105/44
[2025-02-25 17:11] LABS: Glucose - Point of Care 174 mg/dl (70-99)
[2025-02-25] MEDS: TYLENOL 650 MG PO (17:27)
[2025-02-25] MEDS: SODIUM BICARBONATE 1300 MG PO (17:28)
[2025-02-25] MEDS: NOVOLOG FLEXPEN-LOW RESISTANCE 1 UNITS SC (17:29)
[2025-02-25 19:35] VITALS: BP 83/38
--- NOTE | 2025-02-25 20:15 | W.PN.UPDATE ---
Update Note
Progress Note Update
RN reports manual BP 80's/30's 83 96% 16 afebrile. reported she been having diarrhea all day today.
Patient seen and evaluated, Ox 3, tired denies lightheadedness, dizziness, also c/o abdomen relieved with Tylenol,
likely dehydrated, hypovolemic
bolus LR 500CC, Tylenol
lab resulted and noted.
BP 109/49 HR 80's
held Gabapentin earlier due to low BP
patient requesting gabapentin 300mg POnow
continue with LR
0300 BP 90's/30's will bolus with NSS 250cc
0600 BP 104/45 HR 86
[2025-02-25] MEDS: LR 500 IV (20:18)
[2025-02-25 20:30] LABS: Hematocrit 29.1 % (37.0-47.0); Hemoglobin 9.6 g/dL (12.0-16.0); Mean Corp Hgb Conc. 33.0 g/dL (33.0-37.0); Mean Corpuscular Volume 87.1 fL (81.0-99.0); Platelet Count 201 10^3/uL (130-400); Red Cell Dist. Width 14.5 % (11.5-14.5)
[2025-02-25 21:47] LABS: Glucose - Point of Care 108 mg/dl (70-99)
[2025-02-25 22:05] LABS: Blood Urea Nitrogen 21 mg/dl (7-17); Calcium 7.8 mg/dl (8.4-10.2); Carbon Dioxide 21 mmol/L (22-30); Chloride 107 mmol/L (98-107); Estimated Creatinine Clearance 20 ml/min; Glucose 120 mg/dl (70-99); Magnesium 1.7 mg/dl (1.6-2.3); Potassium 3.5 mmol/L (3.5-5.1); Sodium 131 mmol/L (135-145); eGFR 40.05
[2025-02-25] MEDS: NEURONTIN PO (23:22)
[2025-02-25 23:42] VITALS: BP 109/49
[2025-02-26] VITALS (7 sets, daily range): BP systolic 90–118; BP diastolic 37–51; PULSE 86; BMI 18.1
[2025-02-26] MEDS: ZOSYN 50 IV ×2 (00:01→05:57)
[2025-02-26] MEDS: TYLENOL 650 MG PO (00:25)
[2025-02-26] MEDS: NEURONTIN 300 MG PO ×3 (01:27→20:00)
[2025-02-26] MEDS: NSS 250 IV (03:40)
--- NOTE | 2025-02-26 07:07 | W.PN.HOSP.TC ---
Today's Communication/Plan
-
- Zosyn to Unasyn
- increase LR fluids
- clairitin prn
- f/u GI recs
Assessment / Plan
Assessment / Plan
84 yo F PMH IDDM, gastroparesis, CKD stage IIIa, SIBO, and hypothyroidism who presented with fever and diarrhea.
Salmonella colitis:
Erythematous rash
- Salmonella returned positive and is a possible explanation for the rash as well
- rash is improved
- per GI, continue CLD and monitor electrolytes
- Leukocytosis resolved and afebrile
- Supportive care, full liquid diet
- encourage PO intake
- PT/OT following
- f/u GI recs - ask about if imiodium is appropriate now that antibiotics are being given
- reported increase in diarrhea frequency
- LR fluids to 75 cc/hr
- narrow Zosyn to Unasyn today (Day #1 unasyn, total days = 2)
- per pharmacy recommendation, Unasyn 3g q24h IV was selected
- claritiin prn for rash
Hypotension
- increase LR fluid rate
- monitor VS
Asympomatic bacteriuria
- Urine culture that grew salmonella is likely a contaminant from fecal matter
- The klebsiella is likely a colonolization (resistance to ciprofloxacin, and given recent ciprofloxacin administration, supports that she is likely colonized).
Nongap metabolic acidosis - resolved
- bicarbonate is normal at 22
- Frequent labs with electrolyte repletion as needed; likely from GI losses
- continue home sodium bicarbonate PO 650mg AM, 1300mg PM
Hypokalemia
- K+ 3.7
- monitor BMP
Hyponatremia
- Na+ 133
- monitor BMP
Disposition
- likely to home, pending PT/OT
CKD stage IIIa:
- Creatinine is now 1.5
- baseline of around 1.2-1.3; depending on choice, may or may not meet AL criteria
- likely attributed to hypovolemia
- increase LR to 75 cc/hr
- monitor BMP
Anemia of chronic disease:
- Due to CKD
- Hemoglobin level appears close to baseline
IDDM:
- Sliding scale insulin for now
DVT prophylaxis: SCDs
CODE STATUS: Full code
BMI: underweight
Disposition: son would prefer to take Ms. Lawrence home when she's ready for discharge. He can manage everything including driving her to PT appointments, except for the diarrhea, he's wondering if/when that will resolve.
Anticipated Discharge: 24 - 48 hours
Subjective/Interval History
-
Date of Service: February 26, 2025
low BP, continued diarrhea, BP 80/30s requiring midodrine 1x overnight
tired this morning
notified over fever to 100.7 yesterday evening, gave tylenol
rash is better (asking for clariitn prn)
Objective Data
-
Labs:
Laboratory Results
02/25/25 02/25/25 02/26/25
20:23 21:44 06:00
WBC 10.8 Pending
Hgb 9.6 L Pending
Hct 29.1 L Pending
Plt Count 201 Pending
Sodium 131 L Pending
Potassium 3.5 Pending
Chloride 107 Pending
Carbon Dioxide 21 L Pending
BUN 21 H Pending
Creatinine 1.3 H Pending
Glucose 120 H Pending
Calcium 7.8 L Pending
WBC 14.8
Hgb 11.8
Vital Signs:
Vital Signs
Temp Pulse Resp BP Pulse Ox
98.1 F 83 16 85/40 98
02/26/25 03:15 02/26/25 05:03 02/26/25 03:15 02/26/25 05:03 02/26/25 03:15
104/44 when I prerounded
I&O
02/25/25 02/26/25 02/27/25
06:59 06:59 06:59
Intake Total 1440 / 1440 1210 / 1210
Balance 1440 / 1440 1210 / 1210
green stool output
Review of Systems
-
History Source: Patient
Constitutional: Reports Fatigue
EENT: Reports No Symptoms Reported
Respiratory: Reports No Symptoms
Cardiac: Reports No Symptoms
Abdomen/GI: Reports Diarrhea
Genitourinary: Reports No Symptoms
Musculoskeletal: Reports No Symptoms
Skin: Reports Rash (back/thigh)
Neuro: Reports No Symptoms
Endocrine: Reports No Symptoms
Physical Exam
-
General: No Apparent Distress
HEENT: Normocephalic
GI: Soft and Nontender
Skin: Other (rash appears improved)
Psych: Calm
[2025-02-26] MEDS: NSS (PRESERVATIVE FREE) 10 ML IV (07:59)
[2025-02-26] MEDS: LR 1000 IV ×2 (08:00→09:54)
[2025-02-26] MEDS: NOVOLOG FLEXPEN-LOW RESISTANCE SC (08:01)
[2025-02-26] MEDS: PROTONIX IV 40 MG IV (08:02)
[2025-02-26] MEDS: SODIUM BICARBONATE 650 MG PO (08:02)
[2025-02-26] MEDS: VISBIOME 1 CAP PO (08:02)
[2025-02-26 08:03] LABS: Glucose - Point of Care 113 mg/dl (70-99)
--- NOTE | 2025-02-26 09:32 | W.PN.GI.CBS2 ---
Today's Communication / Plan
-
C/w monitor stool output
C/w zosyn
Increase nutrition today if not consider DHT tomorrow
Assessment / Plan
-
Pt is a 84yo with hx NIDDM, CKD, choledocholithiasis, hypothyroidism, anemia, prior master, recent humerus fracture, chronic pain, gastroparesis and constipation. She has been followed by Dr. Ross in office and chronic issues with wt loss,
constipation on chronic bowel regiment with mag citrate, motegrity, senna , early satiety, belching, and gastroparesis. She had recent SIBO testing + and treated with Cipro several weeks ago. She was noted last week with increased belching then
progressed to diarrhea and fever. Imaging and flex as noted below Pt with similar admission several weeks ago. On admission noted with + UTI and stool cx + salmonella.
12/23/24 CT with IV contrast
1. Diffuse liver disease with increased attenuation throughout the liver suggesting either diffuse iron deposition or amiodarone therapy.
2. Moderate to severe intrahepatic pneumobilia.
3. Previous cholecystectomy.
4. Mild wall thickening in the stomach and jejunum suggesting a gastroenteritis.
5. Severe chronic left renal disease.
6. New mild dilatation of the right renal collecting system.
7. Severe calcific atherosclerotic plaque in the abdominal aorta and femoral arteries.
8. Mild diffuse colonic distention.
9. Moderate distention of the urinary bladder.
10. Acute superior endplate fracture of L1.
11. Very severe discogenic degenerative disease at L4/L5.
12. Mild cardiomegaly with severe left atrial enlargement.
13. Severe calcific atherosclerotic plaque in the coronary arteries.
01/22/25 MR Enterography
1. Diffuse liver disease with increased attenuation throughout the liver suggesting either diffuse iron deposition or amiodarone therapy.
2. Moderate to severe intrahepatic pneumobilia.
3. Previous cholecystectomy.
4. Mild wall thickening in the stomach and jejunum suggesting a gastroenteritis.
5. Severe chronic left renal disease.
6. New mild dilatation of the right renal collecting system.
7. Severe calcific atherosclerotic plaque in the abdominal aorta and femoral arteries.
8. Mild diffuse colonic distention.
9. Moderate distention of the urinary bladder.
10. Acute superior endplate fracture of L1.
11. Very severe discogenic degenerative disease at L4/L5.
12. Mild cardiomegaly with severe left atrial enlargement.
13. Severe calcific atherosclerotic plaque in the coronary arteries.
02/21 flex sig - A patchy area of moderately erythematous mucosa was found in the
sigmoid colon. Biopsies were taken with a cold forceps for
histology.
- External and internal hemorrhoids were found during retroflexion.
The hemorrhoids were moderate.
- Multiple medium-mouthed diverticula were found in the sigmoid
colon.
bx pending
Impression
- Salmonella colitis with fever and rash
Confirmed on stool studies 02/25
Blood cultures negative
- Positive UA
- IBS
- DM
- CKD
- h/o constipation
- H/o gastroparesis
Recommendations
- C/w zosyn for immunocompetent to complete total 7 day course of abx
- Rash improving
- Monitor stool output now more form
- Hold all laxatives
- C/w oral ensure clear supplement
- Await results of bx results
- If her oral intake cannot improve then consider DHT tomorrow
Will follow with you. Family updated bedsided
Subjective
Subjective
Date of Service: February 26, 2025
She had 2 looser nonbloody BMs and denies abd pain or N/V. She still has poor appetite and not eating much. Overnight she had low BP of 80s systolic improved with IVF
Objective
Data Reviewed
Laboratory Data:
Laboratory Results
Phosphorus 3.0 mg/dl (2.5-4.5) 02/25/25 08:32
Magnesium 1.7 mg/dl (1.6-2.3) 02/25/25 21:44
Total Bilirubin 0.4 mg/dl (0.2-1.3) 02/22/25 05:38
AST 19 U/L (14-36) 02/22/25 05:38
ALT 44 U/L (0-35) H 02/22/25 05:38
Alkaline Phosphatase 104 U/L (38-126) 02/22/25 05:38
Lipase 77 U/L (23-300) 02/21/25 15:38
Vital Signs and I&O:
Vital Signs
Temp Pulse Resp BP Pulse Ox
97.7 F 78 16 105/46 99
02/26/25 07:03 02/26/25 07:03 02/26/25 07:03 02/26/25 07:03 02/26/25 07:03
I&O
02/25/25 02/26/25 02/27/25
06:59 06:59 06:59
Intake Total 1440 / 1440 1210 / 1210
Balance 1440 / 1440 1210 / 1210
Physical Exam
Physical Exam
GEN: No acute distress, conversant, pleasant
HEENT: anicteric, extraocular movements intact, clear oropharynx without exudates
GI: soft, mildly-distended, not tender to palpation, normal active bowel sounds, no hepatosplenomegaly
EXT: warm, well perfused, trace edema bilaterally ++bilateral rash over abdomen
NEURO: AAOx3, non-focal
[2025-02-26] MEDS: CLARITIN 10 MG PO (09:54)
[2025-02-26 10:18] LABS: Hematocrit 36.3 % (37.0-47.0); Hemoglobin 11.8 g/dL (12.0-16.0); Mean Corp Hgb Conc. 32.5 g/dL (33.0-37.0); Mean Corpuscular Volume 88.3 fL (81.0-99.0); Nucleated Red Blood Cells % 0 %; Platelet Count 228 10^3/uL (130-400); Red Cell Dist. Width 14.6 % (11.5-14.5)
[2025-02-26 10:42] LABS: Blood Urea Nitrogen 20 mg/dl (7-17); Calcium 8.2 mg/dl (8.4-10.2); Carbon Dioxide 22 mmol/L (22-30); Chloride 103 mmol/L (98-107); Estimated Creatinine Clearance 18 ml/min; Glucose 126 mg/dl (70-99); Magnesium 1.8 mg/dl (1.6-2.3); Potassium 3.7 mmol/L (3.5-5.1); Sodium 133 mmol/L (135-145); eGFR 33.73
[2025-02-26] MEDS: UNASYN IV (12:37)
[2025-02-26 12:47] LABS: Glucose - Point of Care 159 mg/dl (70-99)
[2025-02-26] MEDS: NOVOLOG FLEXPEN-LOW RESISTANCE 1 UNITS SC (12:51)
--- NOTE | 2025-02-26 14:26 | PN.CDI ---
CDI
- -
CDI:
Physician Documentation Request
Admit Date: 02/21/25 18:30
Dear Doctor Alfie,
Patient admitted with Salmonella colitis.
02/26 PN, '....Will de-escalate from Zosyn to Unasyn IV for now.'
On admission, WBC 15.8, T max 102.1 and RR >20.
Please clarify which of the following most accurately describes the status of the patient's infection:
Sepsis, POA
Salmonella colitis only
Other
Sepsis
- Systemic manifestations of infection, with 2 or more SIRS criteria which include:
- Fever >100.9 degrees F or hypothermia < 96.8 degrees F
- Leukocytosis - WBC > 12,000 or leukopenia - WBC < 4,000 or > 10% bands
- Tachycardia > 90 beats per minute
- Tachypnea - RR > 20 breaths per minute or PaCO2 , 32mmHg
Source: Merck Manual 2013
- Indicate the known or suspected organism
- Indicate the known or suspected underlying infection, such as Salmonella colitis
- Indicate if a suspected bacterial infection of unknown source
- Indicate if associated with an implanted device such as a F/C, PICC line, orthopedic hardware, etc.
Localized Infection Only, Without Systemic Illness
- indicate the site/source, such as Salmonella colitis
Other
Use of terms such as suspected, likely, concern for, or probable (associated with a specific diagnosis that is being evaluated, monitored, or treated as if it exists) are acceptable and can be coded in the inpatient setting, when documented at the
time of discharge.
Thank you, l
Loida HOPE,RN,CCDS
CDI Specialist
Available via [place] text
Please use your independent medical judgment in providing your response.
[2025-02-26] MEDS: SODIUM BICARBONATE 1300 MG PO (18:06)
[2025-02-26 18:08] LABS: Glucose - Point of Care 240 mg/dl (70-99)
[2025-02-26] MEDS: NOVOLOG FLEXPEN-LOW RESISTANCE 2 UNITS SC (18:09)
[2025-02-26] MEDS: AMPICILLIN 108 MG IV (20:50)
[2025-02-26 21:55] LABS: Glucose - Point of Care 292 mg/dl (70-99)
[2025-02-27] VITALS (8 sets, daily range): BP systolic 89–110; BP diastolic 40–49; PULSE 76; BMI 17.8; BMI 18.1
[2025-02-27] MEDS: LR 1000 IV (01:57)
[2025-02-27] MEDS: AMPICILLIN 108 MG IV ×3 (04:13→20:41)
--- NOTE | 2025-02-27 07:09 | W.PN.HOSP.TC ---
Today's Communication/Plan
-
- f/u urine Na+/Cr studies
- f/u GI and nephrology recommendations
- continue ampicilin
- replete K+
- continue fluids LR 75 cc/hr
- monitor BMP
Assessment / Plan
Assessment / Plan
84 yo F PMH IDDM, gastroparesis, CKD stage IIIa, SIBO, and hypothyroidism who presented with fever and diarrhea.
Salmonella enterocolitis with concern for sepsis on presentation:
Erythematous rash
- on presentation, WBC of 15.8, Tmax of 102.1, and tachypnea to 26 with infectious source meets sepsis criteria at the time; however, most recent VS no longer meet criteria for sepsis
- Salmonella positive and is a possible explanation for the rash as well
- afebrile, and leukocytosis coming down again
- Supportive care, low residue diet
- encourage PO intake
- PT/OT following
- f/u GI recs
- LR fluids to 75 cc/hr
- antibiotics narrowed to Ampicillin only (today is day #2 of ampicillin; previously received Zosyxn for 1 day, and unasyn x1).
- claritiin prn for rash
Hypokalemia
- K+ 2.6; replete with total 120mEq today (40meq IV, 40meq PO, and 40meq IV)
- monitor BMP
AL on CKD stage IIIa
- Cr is 1.6, meeting criteria for AL
- continue fluids
- urine sodium and creatinine ordered to elucidate etiology
- nephrology consulted
- monitor BMP
Hypotension
- BP overnight in 110s/40s
- continue LR at 75 cc/hr
- monitor VS
Asympomatic bacteriuria
- Urine culture that grew salmonella is likely a contaminant from fecal matter
- The klebsiella is likely a colonolization (resistance to ciprofloxacin, and given recent ciprofloxacin administration, supports that she is likely colonized).
Leukocytosis
- likely reactive from the antibiotic administration
- monitor CBC
Nongap metabolic acidosis - resolved
- bicarbonate is normal at 22
- Frequent labs with electrolyte repletion as needed; likely from GI losses
- continue home sodium bicarbonate PO 650mg AM, 1300mg PM
Hyponatremia
- Na+ 133 stable
- monitor BMP
Disposition
- likely to home, pending PT/OT
Anemia of chronic disease:
- Due to CKD
- Hemoglobin level appears close to baseline
IDDM:
- Sliding scale insulin for now
DVT prophylaxis: SCDs
CODE STATUS: Full code
BMI: underweight
Disposition: son would prefer to take Ms. Lawrence home when she's ready for discharge. He can manage everything including driving her to PT appointments, except for the diarrhea, he's wondering if/when that will resolve.
Anticipated Discharge: 24 - 48 hours
Subjective/Interval History
-
Date of Service: February 27, 2025
much more itneractive this morning
diarrhea is improving but still very watery
Objective Data
-
Labs:
Laboratory Results
02/27/25
06:00
WBC Pending
Hgb Pending
Hct Pending
Plt Count Pending
Sodium Pending
Potassium Pending
Chloride Pending
Carbon Dioxide Pending
BUN Pending
Creatinine Pending
Glucose Pending
Calcium Pending
WBC 13.6 from 14.8
Hgb 10.0 from 11.8
Plt 197 from 228
Na+ 133
K+ 2.6 from 3.1
Phos 2.9
Mg 1.6
Vital Signs:
Vital Signs
Temp Pulse Resp BP Pulse Ox
98.9 F 88 18 110/43 98
02/27/25 03:16 02/27/25 03:16 02/27/25 03:16 02/27/25 03:16 02/27/25 03:16
afebrile
I&O
02/26/25 02/27/25 02/28/25
06:59 06:59 06:59
Intake Total 1210 / 1210 510 / 510
Balance 1210 / 1210 510 / 510
Review of Systems
-
History Source: Patient and Family
Constitutional: Reports Fatigue
EENT: Reports No Symptoms Reported
Respiratory: Reports No Symptoms
Cardiac: Reports No Symptoms
Abdomen/GI: Reports Diarrhea
Genitourinary: Reports No Symptoms
Musculoskeletal: Reports No Symptoms
Skin: Reports Rash (improving)
Neuro: Reports No Symptoms
Endocrine: Reports No Symptoms
Physical Exam
-
General: No Apparent Distress
HEENT: Normocephalic and Atraumatic
GI: Soft, Nontender and Other (frequency of diarrhea/watery stools is decreased)
Psych: Calm
[2025-02-27 07:39] LABS: Hematocrit 30.3 % (37.0-47.0); Hemoglobin 10.0 g/dL (12.0-16.0); Mean Corp Hgb Conc. 33.0 g/dL (33.0-37.0); Mean Corpuscular Volume 86.1 fL (81.0-99.0); Platelet Count 197 10^3/uL (130-400); Red Cell Dist. Width 14.4 % (11.5-14.5)
[2025-02-27 07:56] LABS: Blood Urea Nitrogen 23 mg/dl (7-17); Calcium 7.9 mg/dl (8.4-10.2); Carbon Dioxide 21 mmol/L (22-30); Chloride 106 mmol/L (98-107); Estimated Creatinine Clearance 17 ml/min; Glucose 178 mg/dl (70-99); Magnesium 1.6 mg/dl (1.6-2.3); Potassium 2.6 mmol/L (3.5-5.1); Sodium 133 mmol/L (135-145); eGFR 31.21
[2025-02-27 08:04] LABS: Absolute Neutrophils -Man Diff 10.6 10^3/uL (1.4-6.5); Platelets Checked Yes
[2025-02-27 08:07] LABS: Normal RBC Morphology Yes; Total Cells Counted 100
[2025-02-27] MEDS: KCL 40 MEQ PO (08:26)
[2025-02-27] MEDS: NSS (PRESERVATIVE FREE) 10 ML IV (08:27)
[2025-02-27] MEDS: SODIUM BICARBONATE 650 MG PO (08:27)
[2025-02-27] MEDS: NEURONTIN 300 MG PO ×2 (08:27→20:41)
[2025-02-27] MEDS: VISBIOME 1 CAP PO (08:27)
[2025-02-27] MEDS: PROTONIX IV 40 MG IV (08:27)
[2025-02-27] MEDS: KCL 270 MEQ IV ×2 (08:27→13:29)
[2025-02-27 08:33] LABS: Glucose - Point of Care 183 mg/dl (70-99)
[2025-02-27] MEDS: NOVOLOG FLEXPEN-LOW RESISTANCE SC (09:08)
[2025-02-27] MEDS: MAGNESIUM SULFATE 50 IV (10:43)
[2025-02-27] MEDS: CLARITIN 10 MG PO (11:05)
--- NOTE | 2025-02-27 12:47 | W.CON.NEPH ---
Consultation
-
Date/Time Consultation Requested: February 27, 2025 at 12 PM
Date/Time Consultation Performed: February 27, 2025 at 12:30 PM
Requesting Provider: Jayson Judge
Performing Provider: Dr. Nagel
Reason for Consultation: Acute on chronic kidney disease and
Medical History
-
Chief Complaint: Acute kidney injury
History of Present Illness:
84-year-old female with H/L of CKD, gastroparesis, DM, hypothyroidism, and SIBO who presents with fever and diarrhea. She started having bloating and diarrhea in past 24 hours. Family noted that she was also febrile with temperature up to 102.
She previously had been treated with Cipro for SIBO She had recent SIBO testing + and treated with Cipro several weeks ago. She was noted last week with increased belching then progressed to diarrhea and fever. Status post imaging and flex . On
admission noted with + UTI and stool cx + salmonella.
Patient was seen by us in the past admissions in December which she had DKA and acute on chronic kidney disease baseline creatinine 1.3
Renal consult for acute on chronic kidney injury and electrolyte abnormalities and hypokalemia
Past Medical History
NIDDM, CKD, choledocholithiasis, hypothyroidism, anemia, prior master, recent humerus fracture, chronic pain, gastroparesis and constipation.
Social History
Tobacco: Non-Smoker
Alcohol: None
Family History
Family History: Not Pertinent
Allergies / Home Medications
Allergy/AdvReac Type Severity Reaction Status Date / Time
codeine Allergy Unknown Verified 12/20/24 07:11
niacin Allergy Unknown Verified 12/20/24 07:11
rifaximin (From Xifaxan) Allergy Rash-full Verified 02/25/25 17:14
body rash
and
redness.
�Medication �Instructions �Recorded �Confirmed �Type
aspirin 81 mg chewable tablet 81 mg PO QPM Blood Clot 11/18/18 02/21/25 History
Prevention/Tx
levothyroxine 25 mcg tablet 25 mcg PO DAILY Thyroid 08/04/19 02/21/25 History
vit C 250 mg-vit E 90 mg-zinc 40 1 ea PO BID Supplement 08/04/19 02/21/25 History
mg-copper 1 [id number]
capsule (PreserVision AREDS-2)
calcium 600 mg (as 1 tab PO DAILY Supplement 05/15/23 02/21/25 History
carbonate)-vitamin D3 10 mcg (400
unit) tablet (Calcium 600 + D(3))
gabapentin 300 mg capsule 300 mg PO BID Pain 05/15/23 02/21/25 History
magnesium citrate 125 mg capsule 125 mg PO QPM Constipation 05/15/23 02/21/25 History
prucalopride 2 mg tablet 2 mg PO DAILY Constipation 05/15/23 02/21/25 History
(Motegrity)
Lactobac no.2-Bifidobac no.1-S. 1 cap PO DAILY Supplement 12/20/24 02/21/25 History
thermo 112.5 billion cell capsule
(Visbiome)
acetaminophen 650 mg 1,300 mg PO Q8HPRN PRN mild pain 12/20/24 02/21/25 History
tablet,extended release
polyethylene glycol 3350 17 gram 17 g PO QPM Constipation 12/20/24 02/21/25 History
oral powder packet
simethicone 180 mg capsule 180 mg PO DAILYPRN PRN gas 12/20/24 02/21/25 History
insulin aspart U-100 100 unit/mL See Rx Instructions .Route 02/21/25 02/21/25 History
(3 mL) subcutaneous pen (Novolog .COMPLEX PRN If glucose is
FlexPen U-100 Insulin aspart) elevated pre meal
insulin degludec 100 unit/mL (3 See Rx Instructions .Route .COMPLEX 02/21/25 02/21/25 History
mL) subcutaneous pen
pantoprazole 40 mg tablet,delayed 40 mg PO DAILY 02/21/25 02/21/25 History
release
sennosides 8.6 mg tablet (senna) 17.2 mg PO QPM 02/21/25 02/21/25 History
sodium bicarbonate 650 mg tablet 1,300 mg PO QPM 02/21/25 02/21/25 History
sodium bicarbonate 650 mg tablet 650 mg PO DAILY 02/21/25 02/21/25 History
Review of Systems
-
Diarrhea
All other systems: Negative unless noted
Physical Exam
Vital Signs
Vital Signs
Temp Pulse Resp BP Pulse Ox
97.4 F 74 18 102/49 97
02/27/25 11:30 02/27/25 11:40 02/27/25 11:30 02/27/25 11:40 02/27/25 11:30
Lab Results
WBC 13.6 10^3/uL (4.8-10.8) H 02/27/25 06:37
RBC 3.52 10^6/uL (4.20-5.40) L 02/27/25 06:37
Hgb 10.0 g/dL (12.0-16.0) L 02/27/25 06:37
Hct 30.3 % (37.0-47.0) L 02/27/25 06:37
Plt Count 197 10^3/uL (130-400) 02/27/25 06:37
Sodium 133 mmol/L (135-145) L 02/27/25 06:37
Potassium 2.6 mmol/L (3.5-5.1) L* D 02/27/25 06:37
Chloride 106 mmol/L (98-107) 02/27/25 06:37
Carbon Dioxide 21 mmol/L (22-30) L 02/27/25 06:37
BUN 23 mg/dl (7-17) H 02/27/25 06:37
Creatinine 1.6 mg/dL (0.6-1.0) H 02/27/25 06:37
eGFR 31.21 02/27/25 06:37
Glucose 178 mg/dl (70-99) H 02/27/25 06:37
Calcium 7.9 mg/dl (8.4-10.2) L 02/27/25 06:37
Phosphorus 2.9 mg/dl (2.5-4.5) 02/27/25 06:37
Albumin 2.8 g/dl (3.5-5.0) L 02/22/25 05:38
Physical Exam
General no acute distress
HEENT no cephalic atraumatic extraocular muscle intact no scleral icterus no JVD neck supple
lungs clear to auscultation bilateral
heart regular S1-S2 positive
abdomen soft nontender positive bowel sounds
extremities no edema pulses present bilateral
Neurologically nonfocal alert and oriented x 3
Skin no lesions no abrasions no petechiae
Psych normal affect no bizarre behavior
Assessment/Plan
-
84-year-old female with H/L of CKD, gastroparesis, DM, hypothyroidism, and SIBO who presents with fever and diarrhea. She started having bloating and diarrhea in past 24 hours. Family noted that she was also febrile with temperature up to 102.
She previously had been treated with Cipro for SIBO She was noted last week with increased belching then progressed to diarrhea and fever. Status post imaging and flex . On admission noted with + UTI and stool cx + salmonella.
Patient was seen by us in the past admissions in December which she had DKA and acute on chronic kidney disease baseline creatinine 1.3
Renal consult for acute on chronic kidney injury and electrolyte abnormalities and hypokalemia
Patient was seen by us in the past admissions in December which she had DKA and acute on chronic kidney disease baseline creatinine 1.[address] Abad
Impression:
Acute kidney injury
Diarrhea /Salmonella positive
Metabolic acidosis (AG 12)
CKD stage IIIa (1.3)
Diabetes
Hypothyroidism
Hyperlipidemia
Electrolyte abnormality
Nongap metabolic acidosis
Plan:
Aggressive potassium repletion
Follow magnesium
Continue p.o. bicarbonate with nongap metabolic acidosis secondary to diarrhea
Change lactated Ringer's to normal saline to help with more isotonic fluid and increase salt load to help blood pressure
Increase the rates of fluid to 125 cc/h
Discussed with the daughter at bedside
Discussed with medical nurse as to the plan
[2025-02-27 13:04] LABS: Glucose - Point of Care 214 mg/dl (70-99)
[2025-02-27] MEDS: LR IV (13:20)
--- NOTE | 2025-02-27 13:20 | W.PN.GI.CBS2 ---
Today's Communication / Plan
-
Seems to be improving
Continue to encourage PO. Can hold off on DHT
Continue ampicillin. Salmonella is pansensitive
If diarrhea persists, check repeat C diff (negative on 02/22)
Continue supportive care
Assessment / Plan
-
Pt is a 84yo with hx NIDDM, CKD, choledocholithiasis, hypothyroidism, anemia, prior master, recent humerus fracture, chronic pain, gastroparesis and constipation. She has been followed by Dr. Ross in office and chronic issues with wt loss,
constipation on chronic bowel regiment with mag citrate, motegrity, senna , early satiety, belching, and gastroparesis. She had recent SIBO testing + and treated with Cipro several weeks ago. She was noted last week with increased belching then
progressed to diarrhea and fever. Imaging and flex as noted below Pt with similar admission several weeks ago. On admission noted with + UTI and stool cx + salmonella.
12/23/24 CT with IV contrast
1. Diffuse liver disease with increased attenuation throughout the liver suggesting either diffuse iron deposition or amiodarone therapy.
2. Moderate to severe intrahepatic pneumobilia.
3. Previous cholecystectomy.
4. Mild wall thickening in the stomach and jejunum suggesting a gastroenteritis.
5. Severe chronic left renal disease.
6. New mild dilatation of the right renal collecting system.
7. Severe calcific atherosclerotic plaque in the abdominal aorta and femoral arteries.
8. Mild diffuse colonic distention.
9. Moderate distention of the urinary bladder.
10. Acute superior endplate fracture of L1.
11. Very severe discogenic degenerative disease at L4/L5.
12. Mild cardiomegaly with severe left atrial enlargement.
13. Severe calcific atherosclerotic plaque in the coronary arteries.
01/22/25 MR Enterography
1. Diffuse liver disease with increased attenuation throughout the liver suggesting either diffuse iron deposition or amiodarone therapy.
2. Moderate to severe intrahepatic pneumobilia.
3. Previous cholecystectomy.
4. Mild wall thickening in the stomach and jejunum suggesting a gastroenteritis.
5. Severe chronic left renal disease.
6. New mild dilatation of the right renal collecting system.
7. Severe calcific atherosclerotic plaque in the abdominal aorta and femoral arteries.
8. Mild diffuse colonic distention.
9. Moderate distention of the urinary bladder.
10. Acute superior endplate fracture of L1.
11. Very severe discogenic degenerative disease at L4/L5.
12. Mild cardiomegaly with severe left atrial enlargement.
13. Severe calcific atherosclerotic plaque in the coronary arteries.
02/21 flex sig - A patchy area of moderately erythematous mucosa was found in the
sigmoid colon. Biopsies were taken with a cold forceps for
histology.
- External and internal hemorrhoids were found during retroflexion.
The hemorrhoids were moderate.
- Multiple medium-mouthed diverticula were found in the sigmoid
colon.
bx pending
Impression
- Salmonella colitis with fever and rash
Confirmed on stool studies 02/25, also has Salmonella/Klebsiella UTI
Blood cultures negative
- Positive UA
- IBS
- DM
- CKD
- h/o constipation
- H/o gastroparesis
Subjective
Subjective
Date of Service: February 27, 2025
Pt doing better today. Still has diarrhea, but slight decrease in frequency. Appetite has improved and has been eating Ensure and solid food
Objective
Data Reviewed
Laboratory Data:
Laboratory Results
02/27/25 06:37
Laboratory Results
Phosphorus 2.9 mg/dl (2.5-4.5) 02/27/25 06:37
Magnesium 1.6 mg/dl (1.6-2.3) 02/27/25 06:37
Total Bilirubin 0.4 mg/dl (0.2-1.3) 02/22/25 05:38
AST 19 U/L (14-36) 02/22/25 05:38
ALT 44 U/L (0-35) H 02/22/25 05:38
Alkaline Phosphatase 104 U/L (38-126) 02/22/25 05:38
Lipase 77 U/L (23-300) 02/21/25 15:38
Vital Signs and I&O:
Vital Signs
Temp Pulse Resp BP Pulse Ox
97.4 F 74 18 102/49 97
02/27/25 11:30 02/27/25 11:40 02/27/25 11:30 02/27/25 11:40 02/27/25 11:30
I&O
02/26/25 02/27/25 02/28/25
06:59 06:59 06:59
Intake Total 1210 / 1210 510 / 510
Balance 1210 / 1210 510 / 510
Physical Exam
Physical Exam
GI: Soft and Non Distended
[2025-02-27] MEDS: NOVOLOG FLEXPEN-LOW RESISTANCE 2 UNITS SC (13:30)
[2025-02-27] MEDS: NSS 1000 IV ×2 (13:42→22:06)
--- NOTE | 2025-02-27 15:40 | CM ---
Reviewed the chart notes. Per note, appetite improving. CM continues to be available to patient/family and is monitoring medical plan for needs at discharge.
Plan: Discharge to home with outpatient PT/OT services.
[2025-02-27 17:30] LABS: Glucose - Point of Care 197 mg/dl (70-99)
[2025-02-27] MEDS: NOVOLOG FLEXPEN-LOW RESISTANCE 1 UNITS SC (17:31)
[2025-02-27] MEDS: SODIUM BICARBONATE 1300 MG PO (17:32)
[2025-02-27 20:39] LABS: Blood Urea Nitrogen 21 mg/dl (7-17); Calcium 7.9 mg/dl (8.4-10.2); Carbon Dioxide 18 mmol/L (22-30); Chloride 110 mmol/L (98-107); Estimated Creatinine Clearance 18 ml/min; Glucose 224 mg/dl (70-99); Potassium 4.5 mmol/L (3.5-5.1); Sodium 133 mmol/L (135-145); eGFR 33.73
[2025-02-27 21:43] LABS: Glucose - Point of Care 217 mg/dl (70-99)
[2025-02-28 03:15] VITALS: BP 118/55
[2025-02-28] MEDS: AMPICILLIN 108 MG IV ×3 (04:20→20:12)
[2025-02-28 06:00] VITALS: BMI 17.7
[2025-02-28] MEDS: NSS 1000 IV ×2 (06:32→15:54)
[2025-02-28 07:00] VITALS: BP 132/62
[2025-02-28 07:03] LABS: Hematocrit 28.9 % (37.0-47.0); Hemoglobin 9.4 g/dL (12.0-16.0); Mean Corp Hgb Conc. 32.5 g/dL (33.0-37.0); Mean Corpuscular Volume 89.5 fL (81.0-99.0); Platelet Count 182 10^3/uL (130-400); Red Cell Dist. Width 14.5 % (11.5-14.5)
--- NOTE | 2025-02-28 07:11 | W.PN.HOSP.TC ---
Today's Communication/Plan
-
- replete K+ 40mEq PO
- FeNa 2.4% but Cr down to 1.4
- continue IVF NS at 125cc/hr
- continue ampicillin 2g q8h
- monitor VS, BMP, stool output
Assessment / Plan
Assessment / Plan
84 yo F PMH IDDM, gastroparesis, CKD stage IIIa, SIBO who presented with fever and diarrhea.
Salmonella enterocolitis with concern for sepsis on presentation:
- on presentation, WBC of 15.8, Tmax of 102.1, and tachypnea to 26 with infectious source meets sepsis criteria at the time; however, most recent VS no longer meet criteria for sepsis
- Salmonella positive and is a possible explanation for the rash as well, rash has resolved
- afebrile
- Supportive care, low residue diet
- encourage PO intake
- PT/OT following
- f/u GI recs: supportive care; per GI, if diarrhea persists, consider c. diff testing
- IVF NS at 125 cc/hr
- continue Ampicillin 2000mg q8h (today is day #3 of ampicillin; previously received Zosyxn for 1 day, and unasyn x1) likely for 5-7 days total
- claritin prn for rash (last administered 02/27, 11am)
Hypokalemia
- ongoing GI losses
- K+ 3.5 from 4.5 yesterday
- replete 40mEq PO
- Mg within normal limits at 1.9
- monitor BMP
Nongap metabolic acidosis
- bicarbonate is 18
- family reports that her outpatient nephrology was okay with up to [id number] sodium bicarbonate, consider 1300mg bid
- continue home sodium bicarbonate PO 650mg AM, 1300mg PM
- monitor BMP
AL on CKD stage IIIa
- Cr is 1.4 from 1.5
- FeNa 2.4% --> instrinsic renal pathology, ddx includes ATN, GN, there may be some concern for ATN given likely profound GI losses but creatinine is improving
- repeat UA
- nephrology following
- continue IVF NS at 125 cc/hr
- monitor BMP
Hypotension
- BP overnight in 110s/50s
- IVF NS 125cc/hr
- monitor VS
Asympomatic bacteriuria
- Urine culture that grew salmonella is likely a contaminant from fecal matter
- The klebsiella is likely a colonozation (resistance to ciprofloxacin, and given recent ciprofloxacin administration, supports that she is likely colonized).
Leukocytosis
- likely reactive from the antibiotic administration
- 15.5 from 13.6 but afebrile
- monitor CBC
Hyponatremia
- Na+ 137 stable
- monitor BMP
Anemia of chronic disease:
- Due to CKD
- Hemoglobin level appears close to baseline
IDDM:
- Sliding scale insulin for now
Disposition
- likely to home, pending PT/OT
- Son would prefer to take Ms. Lawrence home when she's ready for discharge.
- He can manage everything including driving her to PT appointments, except for the diarrhea, he's wondering if/when that will resolve.
DVT prophylaxis: SCDs
CODE STATUS: Full code
BMI: underweight
Disposition: PT recommends home PT
Anticipated Discharge: 24 - 48 hours
Subjective/Interval History
-
Date of Service: February 28, 2025
repleted K+ yesterday, increased to 4.5
Feels well this am
reportedly consuming more PO
family reports that she is able to sense when she needs to void but watery stools are persisting
Objective Data
-
Labs:
Laboratory Results
02/27/25 02/28/25
20:04 06:30
WBC 15.5 H
Hgb 9.4 L
Hct 28.9 L
Plt Count 182
Sodium 133 L Pending
Potassium 4.5 D Pending
Chloride 110 H Pending
Carbon Dioxide 18 L Pending
BUN 21 H Pending
Creatinine 1.5 H Pending
Glucose 224 H Pending
Calcium 7.9 L Pending
K 3.5 from 4.5
Mg 1.9
Na 137
Cr 1.4
Urine Na 108
Urine Cr 46
FeNa 2.4% per mdcalc
Vital Signs:
Vital Signs
Temp Pulse Resp BP Pulse Ox
97.7 F 83 17 118/55 97
02/28/25 03:15 02/28/25 03:15 02/28/25 03:15 02/28/25 03:15 02/28/25 03:15
afebrile
I&O
02/27/25 02/28/25 03/01/25
06:59 06:59 06:59
Intake Total 510 / 510 1929
Balance 510 / 510 1929
Review of Systems
-
History Source: Patient and Family
Constitutional: Reports Fatigue
EENT: Reports No Symptoms Reported
Respiratory: Reports No Symptoms
Cardiac: Reports No Symptoms
Abdomen/GI: Reports Diarrhea (watery stools)
Genitourinary: Reports No Symptoms
Musculoskeletal: Reports No Symptoms
Skin: Reports Rash (improving)
Neuro: Reports No Symptoms
Endocrine: Reports No Symptoms
Physical Exam
-
General: No Apparent Distress
HEENT: Normocephalic and Atraumatic
GI: Soft, Nontender and Other (frequency of diarrhea/watery stools is decreased)
Musculoskeletal: No Edema
Psych: Calm
[2025-02-28 07:26] LABS: Blood Urea Nitrogen 18 mg/dl (7-17); Calcium 7.7 mg/dl (8.4-10.2); Carbon Dioxide 18 mmol/L (22-30); Chloride 113 mmol/L (98-107); Estimated Creatinine Clearance 19 ml/min; Glucose 120 mg/dl (70-99); Potassium 3.5 mmol/L (3.5-5.1); Sodium 137 mmol/L (135-145); eGFR 36.64
[2025-02-28 07:29] LABS: Glucose - Point of Care 95 mg/dl (70-99)
[2025-02-28 07:32] LABS: Magnesium 1.9 mg/dl (1.6-2.3)
[2025-02-28] MEDS: NOVOLOG FLEXPEN-LOW RESISTANCE SC ×2 (08:15→12:11)
[2025-02-28] MEDS: PROTONIX IV 40 MG IV (09:58)
[2025-02-28] MEDS: NSS (PRESERVATIVE FREE) 10 ML IV (09:59)
[2025-02-28] MEDS: SODIUM BICARBONATE 650 MG PO (10:00)
[2025-02-28] MEDS: VISBIOME 1 CAP PO (10:01)
[2025-02-28] MEDS: NEURONTIN 300 MG PO ×2 (10:01→20:12)
[2025-02-28] MEDS: KCL 40 MEQ PO (10:04)
[2025-02-28 10:06] LABS: Absolute Neutrophils -Man Diff 12.2 10^3/uL (1.4-6.5)
[2025-02-28 10:07] LABS: Normal RBC Morphology Yes; Platelets Checked Yes; Total Cells Counted 100
[2025-02-28] MEDS: CLARITIN 10 MG PO (10:13)
[2025-02-28 11:00] VITALS: BP 121/54
--- NOTE | 2025-02-28 11:24 | W.PN.NEPH.PH ---
Today's Communication / Plan
-
Discontinue IV fluid
Assessment/Plan
-
84-year-old female with H/L of CKD, gastroparesis, DM, hypothyroidism, and SIBO who presents with fever and diarrhea. She started having bloating and diarrhea in past 24 hours. Family noted that she was also febrile with temperature up to 102.
She previously had been treated with Cipro for SIBO She was noted last week with increased belching then progressed to diarrhea and fever. Status post imaging and flex . On admission noted with + UTI and stool cx + salmonella.
Patient was seen by us in the past admissions in December which she had DKA and acute on chronic kidney disease baseline creatinine 1.3
Renal consult for acute on chronic kidney injury and electrolyte abnormalities and hypokalemia
Patient was seen by us in the past admissions in December which she had DKA and acute on chronic kidney disease baseline creatinine 1.[address] Abad
Impression:
Acute kidney injury
Diarrhea /Salmonella positive
Metabolic acidosis (AG 12)
CKD stage IIIa (1.3)
Diabetes
Hypothyroidism
Hyperlipidemia
Electrolyte abnormality
Nongap metabolic acidosis
Plan:
Continue potassium monitoring and repletion
Follow magnesium
Continue p.o. bicarbonate with nongap metabolic acidosis secondary to diarrhea
IV fluids discontinued
AM labs
Creatinine improved to baseline
-
-
Date of Service: February 28, 2025
CC / HPI / ROS
-
Chief Complaint:
Acute kidney injury
History of Present Illness:
Acute kidney injury with diarrhea positive Salmonella
Review of Systems:
No chest pain or shortness of breath
Diarrhea improving
Labs
-
Labs:
WBC 15.5 10^3/uL (4.8-10.8) H 02/28/25 06:30
RBC 3.23 10^6/uL (4.20-5.40) L 02/28/25 06:30
Hgb 9.4 g/dL (12.0-16.0) L 02/28/25 06:30
Hct 28.9 % (37.0-47.0) L 02/28/25 06:30
Plt Count 182 10^3/uL (130-400) 02/28/25 06:30
Sodium 137 mmol/L (135-145) 02/28/25 06:30
Potassium 3.5 mmol/L (3.5-5.1) 02/28/25 06:30
Chloride 113 mmol/L (98-107) H 02/28/25 06:30
Carbon Dioxide 18 mmol/L (22-30) L 02/28/25 06:30
BUN 18 mg/dl (7-17) H 02/28/25 06:30
Creatinine 1.4 mg/dL (0.6-1.0) H 02/28/25 06:30
eGFR 36.64 02/28/25 06:30
Glucose 120 mg/dl (70-99) H 02/28/25 06:30
Calcium 7.7 mg/dl (8.4-10.2) L 02/28/25 06:30
Phosphorus 2.9 mg/dl (2.5-4.5) 02/27/25 06:37
Albumin 2.8 g/dl (3.5-5.0) L 02/22/25 05:38
Physical Exam
-
Vital Signs:
Vital Signs
Temp Pulse Resp BP Pulse Ox
98.3 F 83 20 121/54 99
02/28/25 11:00 02/28/25 11:00 02/28/25 11:00 02/28/25 11:00 02/28/25 11:00
Cardiovascular:: Regular rate and rhythm
Respiratory:: Bilateral: CTA
Lung Excursion:: Normal
Abdomen:: Nontender and Soft
Bowel Sounds:: Normal
Extremity Edema:: None: Bilateral:
Hammer Catheter: No
[2025-02-28 11:40] LABS: Glucose - Point of Care 114 mg/dl (70-99)
--- NOTE | 2025-02-28 12:55 | W.PN.GI.CBS2 ---
Today's Communication / Plan
-
Continue IV ampicillin, which her Salmonella is sensitive to.
Continue low residue diet and supplements
Seems to be slowly improving each day.
Daughter in law asked about WBC 15.5. Continue to monitor. Consider ID consult if significantly trending up
If diarrhea worsens, check repeat C diff. Negative on 02/22
Assessment / Plan
-
Pt is a 84yo with hx NIDDM, CKD, choledocholithiasis, hypothyroidism, anemia, prior master, recent humerus fracture, chronic pain, gastroparesis and constipation. She has been followed by Dr. Ross in office and chronic issues with wt loss,
constipation on chronic bowel regiment with mag citrate, motegrity, senna , early satiety, belching, and gastroparesis. She had recent SIBO testing + and treated with Cipro several weeks ago. She was noted last week with increased belching then
progressed to diarrhea and fever. Imaging and flex as noted below Pt with similar admission several weeks ago. On admission noted with + UTI and stool cx + salmonella.
12/23/24 CT with IV contrast
1. Diffuse liver disease with increased attenuation throughout the liver suggesting either diffuse iron deposition or amiodarone therapy.
2. Moderate to severe intrahepatic pneumobilia.
3. Previous cholecystectomy.
4. Mild wall thickening in the stomach and jejunum suggesting a gastroenteritis.
5. Severe chronic left renal disease.
6. New mild dilatation of the right renal collecting system.
7. Severe calcific atherosclerotic plaque in the abdominal aorta and femoral arteries.
8. Mild diffuse colonic distention.
9. Moderate distention of the urinary bladder.
10. Acute superior endplate fracture of L1.
11. Very severe discogenic degenerative disease at L4/L5.
12. Mild cardiomegaly with severe left atrial enlargement.
13. Severe calcific atherosclerotic plaque in the coronary arteries.
01/22/25 MR Enterography
1. Diffuse liver disease with increased attenuation throughout the liver suggesting either diffuse iron deposition or amiodarone therapy.
2. Moderate to severe intrahepatic pneumobilia.
3. Previous cholecystectomy.
4. Mild wall thickening in the stomach and jejunum suggesting a gastroenteritis.
5. Severe chronic left renal disease.
6. New mild dilatation of the right renal collecting system.
7. Severe calcific atherosclerotic plaque in the abdominal aorta and femoral arteries.
8. Mild diffuse colonic distention.
9. Moderate distention of the urinary bladder.
10. Acute superior endplate fracture of L1.
11. Very severe discogenic degenerative disease at L4/L5.
12. Mild cardiomegaly with severe left atrial enlargement.
13. Severe calcific atherosclerotic plaque in the coronary arteries.
02/21 flex sig - A patchy area of moderately erythematous mucosa was found in the
sigmoid colon. Biopsies were taken with a cold forceps for
histology.
- External and internal hemorrhoids were found during retroflexion.
The hemorrhoids were moderate.
- Multiple medium-mouthed diverticula were found in the sigmoid
colon.
bx pending
Impression
- Salmonella colitis with fever and rash
Confirmed on stool studies 02/25, also has Salmonella/Klebsiella UTI
Blood cultures negative
- Positive UA
- IBS
- DM
- CKD
- h/o constipation
- H/o gastroparesis
Subjective
Subjective
Date of Service: February 28, 2025
Diarrhea less frequent, slowly improving. Appetite better, taking oral supplements and snacks
Objective
Data Reviewed
Laboratory Data:
Laboratory Results
02/28/25 06:30
02/28/25 06:30
Laboratory Results
Phosphorus 2.9 mg/dl (2.5-4.5) 02/27/25 06:37
Magnesium 1.9 mg/dl (1.6-2.3) 02/28/25 06:30
Total Bilirubin 0.4 mg/dl (0.2-1.3) 02/22/25 05:38
AST 19 U/L (14-36) 02/22/25 05:38
ALT 44 U/L (0-35) H 02/22/25 05:38
Alkaline Phosphatase 104 U/L (38-126) 02/22/25 05:38
Lipase 77 U/L (23-300) 02/21/25 15:38
Vital Signs and I&O:
Vital Signs
Temp Pulse Resp BP Pulse Ox
98.3 F 83 20 121/54 99
02/28/25 11:00 02/28/25 11:00 02/28/25 11:00 02/28/25 11:00 02/28/25 11:00
I&O
02/27/25 02/28/25 03/01/25
06:59 06:59 06:59
Intake Total 510 / 510 1929
Balance 510 / 510 1929
Physical Exam
Physical Exam
GI: Soft and Non Distended
[2025-02-28 15:00] VITALS: BP 122/61
[2025-02-28 16:35] LABS: Glucose - Point of Care 167 mg/dl (70-99)
[2025-02-28] MEDS: NOVOLOG FLEXPEN-LOW RESISTANCE 1 UNITS SC (17:54)
[2025-02-28] MEDS: SODIUM BICARBONATE 1300 MG PO (17:54)
[2025-02-28 19:15] VITALS: BP 121/66
[2025-02-28] MEDS: HYDROCORTISONE 1% CREAM 1 APPLIC TOPICAL (20:10)
[2025-02-28 21:30] LABS: Glucose - Point of Care 112 mg/dl (70-99)
[2025-02-28] MEDS: BENADRYL 25 MG PO (23:01)
[2025-02-28 23:29] VITALS: BP 146/74
[2025-03-01] MEDS: NSS 1000 IV (01:51)
[2025-03-01 03:11] VITALS: BP 131/67
[2025-03-01] MEDS: AMPICILLIN 108 MG IV ×2 (03:37→11:00)
[2025-03-01] MEDS: BENADRYL 25 MG PO (03:45)
[2025-03-01 06:00] VITALS: BMI 18.7
[2025-03-01 06:29] LABS: Hematocrit 28.3 % (37.0-47.0); Hemoglobin 9.5 g/dL (12.0-16.0); Mean Corp Hgb Conc. 33.6 g/dL (33.0-37.0); Mean Corpuscular Volume 87.3 fL (81.0-99.0); Platelet Count 170 10^3/uL (130-400); Red Cell Dist. Width 14.3 % (11.5-14.5)
[2025-03-01 06:33] LABS: Blood Urea Nitrogen 12 mg/dl (7-17); Calcium 7.3 mg/dl (8.4-10.2); Carbon Dioxide 16 mmol/L (22-30); Chloride 116 mmol/L (98-107); Estimated Creatinine Clearance 23 ml/min; Glucose 130 mg/dl (70-99); Magnesium 1.6 mg/dl (1.6-2.3); Potassium 2.8 mmol/L (3.5-5.1); Sodium 139 mmol/L (135-145); eGFR 44.08
[2025-03-01 07:00] VITALS: BP 153/74
--- NOTE | 2025-03-01 07:18 | W.PN.HOSP.TC ---
Today's Communication/Plan
-
- continue ampicillin
- replete KPhos 40mEq; f/u BMP (additional repletion likely)
- continue fluids
- consider broader infectious workup: CXR, abdominal-xray, repeat c.diff, but will f/u ID recs
Assessment / Plan
Assessment / Plan
84 yo F PMH IDDM, gastroparesis, CKD stage IIIa, SIBO who presented with fever and diarrhea.
Salmonella gastroenteritis with concern for sepsis on presentation:
- on presentation, WBC of 15.8, Tmax of 102.1, and tachypnea to 26 with infectious source meets sepsis criteria at the time; however, most recent VS no longer meet criteria for sepsis
- Salmonella positive and is a possible explanation for the rash as well, rash has returned
- afebrile
- WBC 17.2 up from 15 yesterday
- encourage PO intake; low residue diet
- PT/OT following
- f/u GI recs: supportive care; per GI, if diarrhea persists, consider c. diff testing
- IVF NS at 125 cc/hr
- continue Ampicillin 2000mg q8h (today is day #3 of ampicillin; previously received Zosyxn for 1 day, and unasyn x1) likely for 5-7 days total
- claritin prn for rash (last administered 02/27, 11am)
- ID consulted today
Leukocytosis
- unclear cause
- superimposed infection despite antibiotics for salmonelaa
- 17.2 from 15.5 (1 day prior) from 13.6 (2 days prior) but afebrile
- monitor CBC
- consider CXR?, abdominal x-ray?, BCx? or repeat c. diff?
- f/u ID recommendations
Rash
- potentially related to salmonella but unclear
- gabapentin 300mg bid
- per current creatinine, max dose is 600mg per pharmacy
- f/u BMP and adjust gabapentin to 400mg bid if Cr can tolerate
Hypokalemia
- ongoing GI losses, but fluctuating potassium levels despite repletion raises concern for other etiologies, RTA?
- K+ 2.8
- replete 40mEq K phos IV; will need more repletion after f/u BMP
- Mg 1.6
- monitor BMP
Nongap metabolic acidosis
- bicarbonate is 16
- family reports that her outpatient nephrology was okay with up to [id number] sodium bicarbonate, consider 1300mg bid
- continue home sodium bicarbonate PO 1300mg AM, 1300mg PM
- monitor BMP
AL on CKD stage IIIa
- Cr is 1.2 from 1.4
- nephrology following
- continue IVF NS at 125 cc/hr
- monitor BMP
Hypotension
- BP overnight in 140s/70s
- IVF NS 125cc/hr
- monitor VS
Asympomatic bacteriuria
- Urine culture that grew salmonella is likely a contaminant from fecal matter
- The klebsiella is likely a colonozation (resistance to ciprofloxacin, and given recent ciprofloxacin administration, supports that she is likely colonized).
Hyponatremia
- Na+ 139 stable
- monitor BMP
Anemia of chronic disease:
- Due to CKD
- Hemoglobin level appears close to baseline
IDDM:
- Sliding scale insulin for now
Disposition
- likely to home; PT recommends home PT
- Son would prefer to take Ms. Lawrence home when she's ready for discharge.
- He can manage everything including driving her to PT appointments, except for the diarrhea, he's wondering if/when that will resolve.
DVT prophylaxis: SCDs
CODE STATUS: Full code
BMI: underweight
Disposition: PT recommends home PT
Anticipated Discharge: > 48 hours
Subjective/Interval History
-
Date of Service: March 01, 2025
diarrhea persisting, son reports able to sense but unable to control
ongoing rash/discomfort on back
son reports a cough
Objective Data
-
Labs:
Laboratory Results
03/01/25
06:03
WBC 17.2 H
Hgb 9.5 L
Hct 28.3 L
Plt Count 170
Sodium 139
Potassium 2.8 L
Chloride 116 H
Carbon Dioxide 16 L
BUN 12
Creatinine 1.2 H
Glucose 130 H
Calcium 7.3 L
Vital Signs:
Vital Signs
Temp Pulse Resp BP Pulse Ox
97.8 F 89 17 131/67 98
03/01/25 03:11 03/01/25 03:11 03/01/25 03:11 03/01/25 03:11 03/01/25 03:11
I&O
02/28/25 03/01/25 03/02/25
06:59 06:59 06:59
Intake Total 1929 2750 / 2750
Balance 1929 2750 / 2750
Review of Systems
-
History Source: Patient and Family
Constitutional: Reports No Symptoms
Respiratory: Reports Cough
Cardiac: Reports No Symptoms
Abdomen/GI: Reports Diarrhea
Genitourinary: Reports No Symptoms
Musculoskeletal: Reports No Symptoms
Skin: Reports Rash
Neuro: Reports No Symptoms
Physical Exam
-
General: No Apparent Distress
HEENT: Normocephalic
Respiratory: Crackles (questionable crackles on left lung base)
Cardiac: Regular Rhythm
GI: Soft and Nontender
Musculoskeletal: No Edema
Skin: Rash (pink rash on back)
Neuro: Awake and Alert
Psych: Calm
[2025-03-01 08:02] LABS: Glucose - Point of Care 110 mg/dl (70-99)
[2025-03-01 08:22] LABS: Nucleated Red Blood Cells % 0 %
[2025-03-01] MEDS: POTASSIUM PHOSPHATE 259.0909 MEQ IV (08:38)
[2025-03-01] MEDS: NEURONTIN 300 MG PO ×2 (08:44→21:02)
[2025-03-01] MEDS: VISBIOME 1 CAP PO (08:44)
[2025-03-01] MEDS: PROTONIX IV 40 MG IV (08:45)
[2025-03-01] MEDS: NSS (PRESERVATIVE FREE) 10 ML IV (08:45)
[2025-03-01] MEDS: SODIUM BICARBONATE 1300 MG PO ×2 (08:45→17:07)
[2025-03-01] MEDS: CLARITIN 10 MG PO (08:50)
[2025-03-01] MEDS: HYDROCORTISONE 1% CREAM 1 APPLIC TOPICAL ×2 (08:51→21:07)
[2025-03-01] MEDS: NOVOLOG FLEXPEN-LOW RESISTANCE SC ×3 (10:39→17:25)
[2025-03-01] MEDS: NSS IV (10:41)
[2025-03-01] MEDS: LR 1000 IV (10:50)
[2025-03-01 11:00] VITALS: BP 137/82
[2025-03-01] MEDS: ATARAX 10 MG PO ×2 (11:00→18:49)
--- NOTE | 2025-03-01 11:28 | W.PN.GI.CBS2 ---
Today's Communication / Plan
-
WBC up a bit today. ID to see. UCx was positive for Klebsiella resistant to Ampicillin ?cause. Salmonella is sensitive to Amp
Encouage POs
Stool to be sent for C diff
Assessment / Plan
-
Pt is a 84yo with hx NIDDM, CKD, choledocholithiasis, hypothyroidism, anemia, prior master, recent humerus fracture, chronic pain, gastroparesis and constipation. She has been followed by Dr. Ross in office and chronic issues with wt loss,
constipation on chronic bowel regiment with mag citrate, motegrity, senna , early satiety, belching, and gastroparesis. She had recent SIBO testing + and treated with Cipro several weeks ago. She was noted last week with increased belching then
progressed to diarrhea and fever. Imaging and flex as noted below Pt with similar admission several weeks ago. On admission noted with + UTI and stool cx + salmonella.
12/23/24 CT with IV contrast - Mild wall thickening in the stomach and jejunum suggesting a gastroenteritis. Mild diffuse colonic distention.
02/21 flex sig - Sigmoid erythema bx'd. Hemorrhoids. Diverticulosis
Impression
- Salmonella colitis with fever and rash
- Salmonella/Klebsiella UTI
- Leukocytosis
- h/o constipation
- H/o gastroparesis
Subjective
Subjective
Date of Service: March 01, 2025
c/o itching burning rash. Eating less as a result. BMs with some form to it now
Objective
Data Reviewed
Laboratory Data:
Laboratory Results
03/01/25 06:03
03/01/25 06:03
Laboratory Results
Phosphorus 1.9 mg/dl (2.5-4.5) L 03/01/25 06:03
Magnesium 1.6 mg/dl (1.6-2.3) 03/01/25 06:03
Total Bilirubin 0.4 mg/dl (0.2-1.3) 02/22/25 05:38
AST 19 U/L (14-36) 02/22/25 05:38
ALT 44 U/L (0-35) H 02/22/25 05:38
Alkaline Phosphatase 104 U/L (38-126) 02/22/25 05:38
Lipase 77 U/L (23-300) 02/21/25 15:38
Vital Signs and I&O:
Vital Signs
Temp Pulse Resp BP Pulse Ox
97.4 F 88 16 153/74 97
03/01/25 07:00 03/01/25 07:00 03/01/25 07:00 03/01/25 07:00 03/01/25 07:00
I&O
02/28/25 03/01/25 03/02/25
06:59 06:59 06:59
Intake Total 1929 2750 / 2750
Balance 1929 2750 / 2750
Physical Exam
Physical Exam
GI: Soft, Non Distended and Non Tender
[2025-03-01 12:43] LABS: Glucose - Point of Care 120 mg/dl (70-99)
--- NOTE | 2025-03-01 14:34 | CON.ID ---
Consultation
-
Date/Time Consultation Requested: March 01, 2025 0907
Date/Time Consultation Performed: March 01, 2025 1435
Requesting Provider: Dr. Jayson Judge
Performing Provider: Dr. Yennifer Delacruz
Reason for Consultation: Leukocytosis, salmonella gasteroenteritis
Chief Complaint / Past History
Chief Complaint
Diarrhea
History of Present Illness
History obtained from the patient as well as from her [id number] at bedside. She is an 84-year-old female with diabetes mellitus, gastroparesis, SIBO (belching), CKD 3 who presented to the hospital February 21 due to diarrhea and fever. Patient
developed a diarrhea 2 days prior to admission. She was going every hour. She then developed fevers and chills. Diarrhea nonbloody. Stool foul-smelling. No abdominal pain. No cramping. No nausea or vomiting. No cough or shortness of breath.
No dysuria, frequency, urgency, or flank pain. No ill contacts. No travel history. She is originally from [place] and last travel back to her home country was more than 30 years ago. She does not eat out. She always eat the same foods at home
until recently prior to getting sick she bought shelled raw peanuts from an store, soaked them, then microwaved for 1 minute. She enjoyed the peanuts. Later she started to make a second batch of these peanuts. However she then started
feeling unwell and developed the diarrhea. No pets.
In the ER patient noted to be hyponatremic, hypokalemic, metabolic acidotic, temperature max 102.1, white count 15.8, AL on CKD. Patient refused CT scan with contrast. Initially she was being managed conservatively. On February 23 she developed
pruritic rash initially started on upper torso which then extends down to her thigh, chest and abdomen. Rash thought to be due to magnesium sulfate infusion. However she continues to have the rash although not as red on topical steroid. On February
she underwent flex sigmoidoscopy and biopsied erythematous mucosa, positive hemorrhoids. On February 25 stool culture resulted as positive Salmonella species. Of note her urine culture grew Salmonella and Klebsiella. She received Zosyn February
, then changed to ampicillin February 26. She continued with diarrhea. Repeat C. difficile negative x 3. White count initially improved but started to trend up again since February 26. Positive bandemia. Positive eosinophilia. Fever resolved day
2 hospitalization. Today she reports diarrhea persists but less frequent.
Past History
Additional Past Medical History:
Diabetes mellitus
Diabetic retinopathy
Gastroparesis
Small intestine bacterial overgrowth
Hypothyroidism
Chronic right hydronephrosis
CKD3
Rectocele
Cholecystectomy
Allergy History:
codeine Allergy (Verified 12/20/24 07:11)
Unknown
niacin Allergy (Verified 12/20/24 07:11)
Unknown
rifaximin (From Xifaxan) Allergy (Verified 02/25/25 17:14)
Rash-full body rash and redness.
Medications Reviewed: Yes
Current Antibiotics:
Ampicillin (d5 abx)
Social History
Tobacco: Non-Smoker
Alcohol: None
Drug: None
Living: Alone
Family History
Family History: Not Pertinent
Review of Systems
Review of Systems
General: Change in Appetite
HEENT: Negative Headache or Pharyngitis
Cardiovascular: Negative Chest Pain or Dyspnea
Respiratory: Negative Dyspnea or Cough
Gasteroenterology: Diarrhea; Negative Vomiting
Genital / Urological: Negative Dysuria or Flank Pain
Endocrine: Weakness and Fatigue
Skin / Hair / Nails: Rash and Pruritis
Neurological: Negative Dizziness
All systems: All other systems were reviewed and were negative
Vital Signs
Temp Pulse Resp BP Pulse Ox
98 F 92 16 137/82 97
03/01/25 11:00 03/01/25 11:00 03/01/25 11:00 03/01/25 11:00 03/01/25 11:00
Physical Exam
Physical Exam
Constitutional: No Acute Distress, Non-toxic and Cachetic
Head: Other (No frontal or maxillary sinus tenderness)
Eyes: No Conjunctival Hemorrhage and Sclera Anicteric
Cardiovascular: Regular Rate and S1/S2
Pulmonary: Clear
Gastrointestinal: Soft, Non Tender, Non Distended and Decreased Bowel Sounds
Genito-Urinary: Negative CVA Tenderness
Extremities: Negative Edema
Skin: Rash (maculopapular rash on posterior torso, chest, abd, upper thighs)
Neurological: AO x 3
Lab / Diagnostic Study Results
03/01/25 06:03
03/01/25 06:03
Abs Immat Gran (auto) 1.0 10^3/uL (0-0.05) H 03/01/25 06:03
Absolute Neuts (auto) 11.9 10^3/uL (1.4-6.5) H 03/01/25 06:03
Absolute Lymphs (auto) 1.6 10^3/uL (1.2-3.4) 03/01/25 06:03
Absolute Monos (auto) 1.3 10^3/uL (0.1-0.6) H 03/01/25 06:03
Absolute Basos (auto) 0.1 10^3/uL (0-0.2) 03/01/25 06:03
Total Counted 100 02/28/25 06:30
Immature Gran % 6.0 % (0-0.5) H 03/01/25 06:03
Neutrophils % 69.4 % (42.2-75.2) 03/01/25 06:03
Lymphocytes % 9.3 % (20.5-51.1) L 03/01/25 06:03
Monocytes % 7.3 % (1.7-9.3) 03/01/25 06:03
Eosinophils % 7.2 % (0-6) H 03/01/25 06:03
Basophils % 0.8 % (0-2) 03/01/25 06:03
Abs Neuts (Manual) 12.2 10^3/uL (1.4-6.5) H 02/28/25 06:30
Segmented Neutrophils 57 % (42-75) 02/28/25 06:30
Band Neutrophils 22 % (0-3) H D 02/28/25 06:30
Lymphocytes (Manual) 5 % (20-51) L 02/28/25 06:30
Eosinophils (Manual) 6 % (0-6) 02/28/25 06:30
Ur Squamous Epith Cells 16-20 /LPF (Few) 02/22/25 16:12
Microbiology Results
Micro:
03/01/25 12:48 C. difficile GDH Antigen & Toxins - Final
Feces/Stool Negative for toxigenic C.difficile
02/22/25 16:12 Urine Culture - Final
Urine Salmonella species
Klebsiella pneumoniae
02/21/25 16:38 Salmonella/Shigella Culture - Final
Feces/Stool Salmonella species
Campylobacter Culture - Final
No Campylobacter species isolated.
Shiga Toxin Test - Final
No E. coli Shiga Toxin 1 or 2 detected.
02/21/25 16:38 Miscellaneous Microbiology Test - Pending
Feces/Stool
02/22/25 23:57 C. difficile GDH Antigen & Toxins - Final
Feces/Stool Negative for toxigenic C.difficile
02/21/25 16:38 C. difficile GDH Antigen & Toxins - Final
Feces/Stool Negative for toxigenic C.difficile
- Final
Negative for Norovirus GI and GII.
02/23/25 AXR: The amount of stool present appears within normal limits. No significantly dilated air-filled loops of bowel.
Assessment / Plan
# Salmonella gastroenteritis
# Fever resolved
- Diarrhea persists, but not as frequent
- Replace ampicillin with ceftriaxone IV.
- Follow stool output.
- Continue supportive care.
# Pruritic rash
# Leukocytosis trending up with eosinophilia (allergy)
- Onset of rash prior to antibiotic.
- Should review med list, identify offending agent
- Doubt parasite as source of eosinophilia, but will check stool for O+P.
- Trend wbc/eos
# Conditions present on admission
Diabetes mellitus
Diabetic retinopathy
Gastroparesis
Small intestine bacterial overgrowth
Hypothyroidism
Chronic right hydronephrosis
CKD3
Rectocele
Cholecystectomy
[2025-03-01 14:35] VITALS: BP 137/72; PULSE 86
[2025-03-01 15:00] VITALS: BP 134/75
--- NOTE | 2025-03-01 15:20 | W.PN.NEPH.PH ---
Today's Communication / Plan
-
Continue lactated Ringer's
Would avoid IV bicarbonate with recurrent hypokalemia and diarrhea
Assessment/Plan
-
84-year-old female with H/L of CKD, gastroparesis, DM, hypothyroidism, and SIBO who presents with fever and diarrhea. She started having bloating and diarrhea in past 24 hours. Family noted that she was also febrile with temperature up to 102.
She previously had been treated with Cipro for SIBO She was noted last week with increased belching then progressed to diarrhea and fever. Status post imaging and flex . On admission noted with + UTI and stool cx + salmonella.
Patient was seen by us in the past admissions in December which she had DKA and acute on chronic kidney disease baseline creatinine 1.3
Renal consult for acute on chronic kidney injury and electrolyte abnormalities and hypokalemia
Patient was seen by us in the past admissions in December which she had DKA and acute on chronic kidney disease baseline creatinine 1.[address] Abad
Impression:
Acute kidney injury
Diarrhea /Salmonella positive
Metabolic acidosis (AG 12)
CKD stage IIIa (1.3)
Diabetes
Hypothyroidism
Hyperlipidemia
Electrolyte abnormality
Nongap metabolic acidosis
Plan:
Continue potassium monitoring and repletion
Follow magnesium
Continue p.o. bicarbonate with nongap metabolic acidosis secondary to diarrhea
Avoid IV bicarbonate with recurrent hypokalemia
On LR
AM labs
Creatinine improved to baseline
-
-
Date of Service: March 01, 2025
CC / HPI / ROS
-
Chief Complaint:
Acute kidney injury
History of Present Illness:
Acute kidney injury with diarrhea positive Salmonella
Review of Systems:
No chest pain or shortness of breath
Diarrhea improving
Labs
-
Labs:
WBC 17.2 10^3/uL (4.8-10.8) H 08/24/25 06:03
RBC 3.24 10^6/uL (4.20-5.40) L 03/01/25 06:03
Hgb 9.5 g/dL (12.0-16.0) L 03/01/25 06:03
Hct 28.3 % (37.0-47.0) L 03/01/25 06:03
Plt Count 170 10^3/uL (130-400) 03/01/25 06:03
Sodium 139 mmol/L (135-145) 03/01/25 06:03
Potassium 2.8 mmol/L (3.5-5.1) L 03/01/25 06:03
Chloride 116 mmol/L (98-107) H 03/01/25 06:03
Carbon Dioxide 16 mmol/L (22-30) L 03/01/25 06:03
BUN 12 mg/dl (7-17) 03/01/25 06:03
Creatinine 1.2 mg/dL (0.6-1.0) H 03/01/25 06:03
eGFR 44.08 03/01/25 06:03
Glucose 130 mg/dl (70-99) H 03/01/25 06:03
Calcium 7.3 mg/dl (8.4-10.2) L 03/01/25 06:03
Phosphorus 1.9 mg/dl (2.5-4.5) L 03/01/25 06:03
Albumin 2.8 g/dl (3.5-5.0) L 02/22/25 05:38
Physical Exam
-
Vital Signs:
Vital Signs
Temp Pulse Resp BP Pulse Ox
98 F 92 16 137/82 97
03/01/25 11:00 03/01/25 11:00 03/01/25 11:00 03/01/25 11:00 03/01/25 11:00
Cardiovascular:: Regular rate and rhythm
Respiratory:: Bilateral: CTA
Lung Excursion:: Normal
Abdomen:: Nontender and Soft
Bowel Sounds:: Normal
Extremity Edema:: None: Bilateral:
Hammer Catheter: No
[2025-03-01] MEDS: ROCEPHIN 2000 MG IV (17:06)
[2025-03-01] MEDS: STERILE WATER FOR INJECTION 20 ML IV (17:07)
[2025-03-01] MEDS: FLUSH (NSS) 2 FLUSH IV (17:09)
[2025-03-01 17:18] LABS: Glucose - Point of Care 102 mg/dl (70-99)
[2025-03-01 19:40] VITALS: BP 143/73
[2025-03-01] MEDS: KCL 40 MEQ PO (21:03)
[2025-03-01 21:12] LABS: Glucose - Point of Care 142 mg/dl (70-99)
[2025-03-02 03:16] VITALS: BP 104/68
[2025-03-02] MEDS: LR 1000 IV (03:46)
[2025-03-02 06:00] VITALS: BMI 19.5
[2025-03-02 07:56] VITALS: BP 144/75
[2025-03-02 08:15] LABS: Hematocrit 29.3 % (37.0-47.0); Hemoglobin 9.7 g/dL (12.0-16.0); Mean Corp Hgb Conc. 33.1 g/dL (33.0-37.0); Mean Corpuscular Volume 86.2 fL (81.0-99.0); Platelet Count 147 10^3/uL (130-400); Red Cell Dist. Width 14.6 % (11.5-14.5)
[2025-03-02 08:27] LABS: Glucose - Point of Care 98 mg/dl (70-99)
[2025-03-02 08:43] LABS: Blood Urea Nitrogen 9 mg/dl (7-17); Calcium 7.2 mg/dl (8.4-10.2); Carbon Dioxide 21 mmol/L (22-30); Chloride 111 mmol/L (98-107); Estimated Creatinine Clearance 26 ml/min; Glucose 98 mg/dl (70-99); Magnesium 1.4 mg/dl (1.6-2.3); Potassium 3.2 mmol/L (3.5-5.1); Sodium 140 mmol/L (135-145); eGFR 48.94
--- NOTE | 2025-03-02 08:50 | W.PN.GI.CBS2 ---
Today's Communication / Plan
-
Ampicillin switched to Ceftriaxone by ID yesterday
WBC 17.7 still, but continues to improve clinically
Path still pending from flex sig
Tolerating POs
Assessment / Plan
-
Pt is a 84yo with hx NIDDM, CKD, choledocholithiasis, hypothyroidism, anemia, prior master, recent humerus fracture, chronic pain, gastroparesis and constipation. She has been followed by Dr. Ross in office and chronic issues with wt loss,
constipation on chronic bowel regiment with mag citrate, motegrity, senna , early satiety, belching, and gastroparesis. She had recent SIBO testing + and treated with Cipro several weeks ago. She was noted last week with increased belching then
progressed to diarrhea and fever. Imaging and flex as noted below Pt with similar admission several weeks ago. On admission noted with + UTI and stool cx + salmonella.
12/23/24 CT with IV contrast - Mild wall thickening in the stomach and jejunum suggesting a gastroenteritis. Mild diffuse colonic distention.
02/21 flex sig - Sigmoid erythema bx'd. Hemorrhoids. Diverticulosis
Impression
- Salmonella colitis with fever and rash
- Salmonella/Klebsiella UTI
- Leukocytosis
- h/o constipation
- H/o gastroparesis
Subjective
Subjective
Date of Service: March 02, 2025
BMs less frequent and starting to show some form. She feels better today, but still c/o rash
Objective
Data Reviewed
Laboratory Data:
Laboratory Results
03/02/25 07:48
03/02/25 07:48
Laboratory Results
Phosphorus 2.7 mg/dl (2.5-4.5) 03/02/25 07:48
Magnesium 1.4 mg/dl (1.6-2.3) L 03/02/25 07:48
Total Bilirubin 0.4 mg/dl (0.2-1.3) 02/22/25 05:38
AST 19 U/L (14-36) 02/22/25 05:38
ALT 44 U/L (0-35) H 02/22/25 05:38
Alkaline Phosphatase 104 U/L (38-126) 02/22/25 05:38
Lipase 77 U/L (23-300) 02/21/25 15:38
Vital Signs and I&O:
Vital Signs
Temp Pulse Resp BP Pulse Ox
97.8 F 86 16 144/75 100
03/02/25 07:56 03/02/25 07:56 03/02/25 07:56 03/02/25 07:56 03/02/25 07:56
I&O
03/01/25 03/02/25 03/03/25
06:59 06:59 06:59
Intake Total 2750 / 2750 370 / 370
Balance 2750 / 2750 370 / 370
Physical Exam
Physical Exam
GI: Soft and Non Distended
[2025-03-02] MEDS: NOVOLOG FLEXPEN-LOW RESISTANCE SC (09:07)
[2025-03-02] MEDS: NEURONTIN 300 MG PO ×3 (09:19→21:28)
[2025-03-02] MEDS: SODIUM BICARBONATE 1300 MG PO ×2 (09:19→18:22)
[2025-03-02] MEDS: VISBIOME 1 CAP PO (09:19)
[2025-03-02] MEDS: PROTONIX 40 MG PO (09:19)
[2025-03-02] MEDS: KCL 40 MEQ PO (09:19)
[2025-03-02] MEDS: HYDROCORTISONE 1% CREAM 1 APPLIC TOPICAL ×2 (09:21→21:29)
[2025-03-02] MEDS: ATARAX 10 MG PO ×3 (09:32→21:28)
--- NOTE | 2025-03-02 10:43 | W.PN.HOSP.TC ---
Addendum entered and electronically signed by Khang Riley MD 03/03/25 00:02:
Attending Addendum-
I saw and evaluated the patient. I reviewed the resident�s note and agree with findings and plan as documented in the resident�s note. Sub: 'I feel great today!' No further diarrhea denies urinary sxs. Seen with DIL present. Rash improving but still
mildly itchy. No fevers chills. Full 12 point ROS reviewed and negative except as documented Exam: Vitals reviewed in chart GEN-NAD heart RRR lungs clear abd osft Skin mac pap rash upper torso and back
Plan:
# Sepsis secondary to Salmonella gastroenteritis
- Salmonella positive in stool and urine
- afebrile
- WBC still elevated
- encourage PO intake; low residue diet
- PT/OT following- refusing SNF
- transition to Rocephin
- flex sig 02/24- no significant findings
- ID input appreciated
#Drug Rash with eosinophilia
- from IV magnesium supplementation
- avoid use and place on allergy list
- hydrocort cream
# Hypokalemia
- replete aggressively
- monitor BMP
# Nongap metabolic acidosis
- cont bicarb 1300mg bid
- improved
- monitor BMP
# AL on CKD stage IIIa
- resolved
- nephrology following
- monitor BMP
# Asymptomatic bacteriuria
- CTM
- no indication for abx
#Hyponatremia
- resolved
#Anemia of chronic disease:
- stable
IDDM:
- Sliding scale insulin
Disposition
- likely to home; PT recommends home PT
DVT prophylaxis: SCDs
CODE STATUS: Full ->DNR
ACP
Patient consented to discuss, was with DIL, time spent explanation of advance directives, changes in health status, patient�s health care wishes if the patient becomes unable to make health decisions, goals of care, code status, and prognosis
clearly requesting to be DNR. 'this is my wish donald lived a great life and have made it quite clear that im a DNR'- 16 minutes
Time spent coordinating care, review of plan of care with resident, personally reviewed previous records in EMR, med rec, labs, radiology, d/w nursing, family total time documented is exclusive of any additional time listed that was spent in advance
care planning discussion -�53 minutes
Original Note:
Today's Communication/Plan
-
#salmonella gastroenteritis
- IV ceftriaxone today (s/p 1 dose Zosyn, then ampicillin ), per ID
- Continue IVF NS at 125 cc/hr
- Encourage PO intake; low residue diet
#pruritic rash w eosinophilia
- Increase potency of topical corticosteroid cream
- Review list of medications
- Claritin PRN for itching
- Atarax at night for itching
- Continue home gabapentin, may increase up to 300-400mg bid (per current creatinine, max dose is 600mg per pharmacy; home backup operator said 400mg) - appreciate renal recs
Assessment / Plan
Assessment / Plan
Priya Lawrence is an 84yo F with pmh notable for IDDM, gastroparesis, CKD stage IIIa, and SIBO who presented with fever and bloody diarrhea, found to have salmonella gastroenteritis & with development of pruritic rash, now improving s/p abx.
#Salmonella gastroenteritis
Met sepsis criteria on admission, no longer. AVSS today. BP mildly elevated 144/75. Afebrile 97.8. WBC elevated 17.7 (from 15.8 on admission 02/21). Stool cx positive for salmonella. C diff returned negative (03/01).
- IV ceftriaxone today (s/p 1 dose Zosyn, then ampicillin ), per ID
- Continue IVF NS at 125 cc/hr
- Encourage PO intake; low residue diet
- PT/OT following
#Pruritic erythematous rash
Per family, presentation c/w drug reaction rash to rifaximin ~1 yr prior. Ddx also includes salmonella-related rash. Rash is improving in appearance s/p d/c of Zosyn and treatment of salmonella infection. Pt has had ampicillin prior without issue.
Pruritis requires better control. Family states rash began on 02/23. No abx given until 02/26. Only meds administered prior to 02/23 were electrolytes, fluids, iohexol iodinated contrast. Family states pt has received contrast before. Rash occurred
immediately after Mg sulfate infusion.
- Increase potency of topical corticosteroid cream
- Review list of medications to eval for culprit (Mg sulfate?)
- Claritin PRN for itching
- Atarax at night for itching
- Continue home gabapentin, may increase up to 300-400mg bid (per current creatinine, max dose is 600mg per pharmacy; home backup operator said 400mg) - appreciate renal recs
- May use sarna or other cooling lotions on affected areas
#Leukocytosis w eosinophilia
WBC 15.8 on admission, has trended up to 17.7 today despite trt for salmonella infection. Urine cx poitive for klebsiella not thought to be culprit, per ID. No urinary sx. Potential for superimposed infection but less likely given AVSS & clinical
picture. Eosinophilia indicates likely 2/2 drug rash, allergic reaction. Stool O&P negative.
- Monitor CBC with differential
- Continue to eval for inciting drug
#Hypokalemia
K 3.2 today, up from 2.8 yesterday. Likely 2/2 ongoing bicarb repletion for chronic acidosis and GI losses from diarrheal illness.
- Continue to monitor BMP and replete K & Mg as needed
#Nongap metabolic acidosis
Today bicarb 21, up from 16 yesterday. Chronic, family reports that her outpatient nephrology was okay with up to [id number] sodium bicarbonate, consider 1300mg bid. At home, pt taking sodium bicarbonate PO 1300mg AM, 1300mg PM.
- Continue to trend bicarb
- Continue PO bicarb & IV lactated ringers, per renal
#AL on CKD stage IIIa
Cr trending down, 1.1 today (1.5>1.4>1.2>1.1)
- Continue to monitor BMP
- Continue IVF NS at 125 cc/hr
- Appreciate renal recs
#Asymptomatic bacteriuria
Urine culture grew salmonella, likely a contaminant from fecal matter. Klebsiella in urine cx likely colonization (resistance to ciprofloxacin, and given recent ciprofloxacin administration, supports that she is likely colonized). ID not concerned
about klebsiella. Pt afebrile and without dysuria or frequency or suprapubic tenderness.
- Continue to monitor for any sx
#Hyponatremia
Normalizing, 140 today.
- Continue to monitor BMP
#Chronic issues:
#Anemia of chronic disease - hgb near baseline, continue to monitor
#IDD - sliding scale insulin
#Global
- Dispo: to home (with son/daughter in law; son's preference for home); PT recommends home PT
- DVT prophylaxis: SCDs
- Code status: DNR/DNI
Anticipated Discharge: 24 - 48 hours
Subjective/Interval History
-
Date of Service: March 02, 2025
Pt awake & alert, out of bed in chair with son & daughter in law present at bedside. Family reports that patient is still having loose stools but that the urgency has improved - no more accidents. Main complaint is itching rash which continues to
cause itching discomfort overnight. Pt reports 'itching all over' and burning sensation. Taking claritin during day, putting on hydrocortisone 1% on affected areas (shoulders, upper back), and took atarax 1 dose before bed last night. Family notes
that rash appearance has greatly improved - much less redness. Denies f/c, n/v, pain. Family wondering about increasing gabapenting dose to 300mg (home backup operator said up to 400mg okay).
Objective Data
-
Labs:
Laboratory Results
03/02/25
07:48
WBC 17.7 H
Hgb 9.7 L
Hct 29.3 L
Plt Count 147
Sodium 140
Potassium 3.2 L
Chloride 111 H
Carbon Dioxide 21 L
BUN 9
Creatinine 1.1 H
Glucose 98
Calcium 7.2 L
Vital Signs:
Vital Signs
Temp Pulse Resp BP Pulse Ox
97.8 F 86 16 144/75 100
03/02/25 07:56 03/02/25 07:56 03/02/25 07:56 03/02/25 07:56 03/02/25 07:56
I&O
03/01/25 03/02/25 03/03/25
06:59 06:59 06:59
Intake Total 2750 / 2750 370 / 370
Balance 2750 / 2750 370 / 370
Review of Systems
-
History Source: Patient and Family
Respiratory: Reports No Symptoms
Cardiac: Reports No Symptoms
Abdomen/GI: Reports Nausea (denies), Vomiting (denies) and Diarrhea (non-bloody)
Genitourinary: Reports Dysuria (denies) and Frequency (denies)
Skin: Reports Itching ('all over') and Rash (shoulders, upper back, saddle region)
Physical Exam
-
General: Comfortable and Conversant
HEENT: Normocephalic, Atraumatic and Anicteric
Respiratory: Clear to Auscultation
Cardiac: Regular Rhythm
GI: Soft, Nontender and Nondistended
Rectal: Other (brown liquid stool in commode )
Skin: Warm, Dry and Rash (macular mildly erythematous rash on R shoulder, upper back, proximal inner thighs, chest; mild scabbing & bruising 2/2 scratching )
Neuro: Awake and Alert
Psych: Calm
[2025-03-02 11:19] VITALS: BP 131/75
--- NOTE | 2025-03-02 12:22 | W.PN.NEPH.PH ---
Today's Communication / Plan
-
Replete electrolytes
Assessment/Plan
-
84-year-old female with H/L of CKD, gastroparesis, DM, hypothyroidism, and SIBO who presents with fever and diarrhea. She started having bloating and diarrhea in past 24 hours. Family noted that she was also febrile with temperature up to 102.
She previously had been treated with Cipro for SIBO She was noted last week with increased belching then progressed to diarrhea and fever. Status post imaging and flex . On admission noted with + UTI and stool cx + salmonella.
Patient was seen by us in the past admissions in December which she had DKA and acute on chronic kidney disease baseline creatinine 1.3
Renal consult for acute on chronic kidney injury and electrolyte abnormalities and hypokalemia
Impression:
Acute kidney injury
Diarrhea /Salmonella positive
Metabolic acidosis (AG 12)
CKD stage IIIa (1.3)
Diabetes
Hypothyroidism
Hyperlipidemia
Electrolyte abnormality
Nongap metabolic acidosis
Postherpetic neuralgia
Plan:
Replete potassium and magnesium (more potassium)
Continue potassium monitoring and repletion
Follow magnesium
Continue p.o. bicarbonate twice daily
On LR still
Okay to increase gabapentin 3 times daily
-
-
Date of Service: March 02, 2025
CC / HPI / ROS
-
Chief Complaint:
Acute kidney injury
History of Present Illness:
Acute kidney injury with diarrhea positive Salmonella
Diarrhea slowly improving, now loose
Potassium remains low 3.2 magnesium low 1.4\\
Creatinine stable 1.1
Review of Systems:
Shingles discomfort
No chest pain or shortness of breath
Diarrhea improving
Labs
-
Labs:
WBC 17.7 10^3/uL (4.8-10.8) H 03/02/25 07:48
RBC 3.40 10^6/uL (4.20-5.40) L 03/02/25 07:48
Hgb 9.7 g/dL (12.0-16.0) L 03/02/25 07:48
Hct 29.3 % (37.0-47.0) L 03/02/25 07:48
Plt Count 147 10^3/uL (130-400) 03/02/25 07:48
Sodium 140 mmol/L (135-145) 03/02/25 07:48
Potassium 3.2 mmol/L (3.5-5.1) L 03/02/25 07:48
Chloride 111 mmol/L (98-107) H 03/02/25 07:48
Carbon Dioxide 21 mmol/L (22-30) L 03/02/25 07:48
BUN 9 mg/dl (7-17) 03/02/25 07:48
Creatinine 1.1 mg/dL (0.6-1.0) H 03/02/25 07:48
eGFR 48.94 03/02/25 07:48
Glucose 98 mg/dl (70-99) 03/02/25 07:48
Calcium 7.2 mg/dl (8.4-10.2) L 03/02/25 07:48
Phosphorus 2.7 mg/dl (2.5-4.5) 03/02/25 07:48
Albumin 2.8 g/dl (3.5-5.0) L 02/22/25 05:38
Physical Exam
-
Vital Signs:
Vital Signs
Temp Pulse Resp BP Pulse Ox
97.7 F 91 18 131/75 97
03/02/25 11:19 03/02/25 11:19 03/02/25 11:19 03/02/25 11:19 03/02/25 11:19
Cardiovascular:: Regular rate and rhythm
Respiratory:: Bilateral: Coarse
Lung Excursion:: Normal
Abdomen:: Nontender and Soft
Bowel Sounds:: Normal
Extremity Edema:: None: Bilateral:
[2025-03-02 12:24] LABS: Glucose - Point of Care 159 mg/dl (70-99)
--- NOTE | 2025-03-02 13:24 | W.PN.ID1 ---
Date of Service
Date of Service: March 02, 2025
Today's Communication
Continue ceftriaxone.
Assessment / Plan
# Salmonella gastroenteritis
# Fever resolved
- Diarrhea improving
- Continue ceftriaxone IV (d5 abx)
- Follow stool output.
- Continue supportive care.
# Pruritic rash
# Leukocytosis with eosinophilia (allergy)
- Onset of rash prior to antibiotic.
- Offending agent unclear
- stool for O+P neg griardia/crypto
- Trend wbc/eos
# Conditions present on admission
Diabetes mellitus
Diabetic retinopathy
Gastroparesis
Small intestine bacterial overgrowth
Hypothyroidism
Chronic right hydronephrosis
CKD3
Rectocele
Cholecystectomy
Chief Complaint
-: Leukocytosis and Other (Diarrhea)
Subjective / Review of Systems
Diarrhea less frequent. She now can control BM and make it to the commode.
Itchy rash still present especially over right shoulder, upper arm.
Vital Signs / Physical Exam
Vital Signs
Vital Signs
Temp Pulse Resp BP Pulse Ox
97.7 F 91 18 131/75 97
03/02/25 11:19 03/02/25 11:19 03/02/25 11:19 03/02/25 11:19 03/02/25 11:19
Physical Exam
Constitutional: No Acute Distress, Comfortable and Non-toxic
Eyes: No Conjunctival Hemorrhage and Sclera Anicteric
Pulmonary: Clear
Gastrointestinal: Soft, Non Tender, Non Distended and Normal Bowel Sounds
Extremities: Negative Edema
Skin: Rash (Maculopapular rash posterior torso, chest, upper arms)
Neurological: AO x 3
Objective Data
Lab Data
Lab Results
03/02/25 07:48
03/02/25 07:48
Estimated Creat Clear 26 ml/min 03/02/25 07:48
Total Bilirubin 0.4 mg/dl (0.2-1.3) 02/22/25 05:38
AST 19 U/L (14-36) 02/22/25 05:38
ALT 44 U/L (0-35) H 02/22/25 05:38
Alkaline Phosphatase 104 U/L (38-126) 02/22/25 05:38
Most recent labs reviewed.
Micro Results:
03/01/25 12:48 Cryptosporidium/Giardia - Final
Feces/Stool Negative for Cryptosporidium and/or Giardia Lamblia
antigens.
C. difficile GDH Antigen & Toxins - Final
Negative for toxigenic C.difficile
02/22/25 16:12 Urine Culture - Final
Urine Salmonella species
Klebsiella pneumoniae
02/21/25 16:38 Salmonella/Shigella Culture - Final
Feces/Stool Salmonella species
Campylobacter Culture - Final
No Campylobacter species isolated.
Shiga Toxin Test - Final
No E. coli Shiga Toxin 1 or 2 detected.
02/21/25 16:38 Miscellaneous Microbiology Test - Pending
Feces/Stool
02/22/25 23:57 C. difficile GDH Antigen & Toxins - Final
Feces/Stool Negative for toxigenic C.difficile
02/21/25 16:38 C. difficile GDH Antigen & Toxins - Final
Feces/Stool Negative for toxigenic C.difficile
- Final
Negative for Norovirus GI and GII.
02/23/25 AXR: The amount of stool present appears within normal limits. No significantly dilated air-filled loops of bowel.
--- NOTE | 2025-03-02 13:36 | CM ---
Met with patient and ZuleymaAkbarMarty to discuss discharge POC. Previous notes mention son wants to take patient to outpatient PT/OT. Therapy recommending in-home HH PT/OT. Family has now decided to have HH because the outpatient therapist they had in the
past is no longer at . Martha wants to speak with her before making a decision on which agency to go with. She will speak with him later today (went home to sleep, been here 29/01) and either call this CM with decision or speak with CM
tomorrow. She tends to think they will go with [facility] for VN, PT/OT. Will confirm after speaking with patient's son.
[2025-03-02] MEDS: MAGNESIUM SULFATE 50 IV (14:51)
[2025-03-02] MEDS: CLARITIN 10 MG PO (14:51)
[2025-03-02] MEDS: KCL 20 MEQ PO (14:51)
[2025-03-02] MEDS: NOVOLOG FLEXPEN-LOW RESISTANCE 1 UNITS SC ×2 (14:52→18:24)
[2025-03-02 15:52] VITALS: BP 122/59
--- NOTE | 2025-03-02 16:34 | PTCARENOTE ---
Patient's family requesting that the Magnesium be stopped because since infusion was started patient became more itchy and rash has become more pink. Dr. Riley aware, okay with stopping infusion. Patient received approximately half of ordered
dose.
[2025-03-02 17:15] LABS: Glucose - Point of Care 162 mg/dl (70-99)
--- NOTE | 2025-03-02 17:45 | W.PN.UPDATE ---
Update Note
Progress Note Update
Saw patient after family stopped Mg sulfate infusion partway through due to worsening rash. Evaluated rash at bedside - appreciated worsened erythema from a few hours prior on posterior R bicep, chest, and R thigh. Family at bedside, described
patient scratching scalp and arms after infusion began. Discussed that we're holding Mg sulfate infusions and discussed proper application of triamcinolone ointment to rash areas.
[2025-03-02] MEDS: FLUSH (NSS) 2 FLUSH IV (18:22)
[2025-03-02] MEDS: STERILE WATER FOR INJECTION 20 ML IV (18:22)
[2025-03-02] MEDS: ROCEPHIN 2000 MG IV (18:22)
[2025-03-02] MEDS: TRIAMCINOLONE ACETONIDE 0.025% OINTMENT 1 APPLIC TOPICAL (18:27)
[2025-03-02 19:30] VITALS: BP 130/65
[2025-03-02 21:52] LABS: Glucose - Point of Care 260 mg/dl (70-99)
[2025-03-02 23:14] VITALS: BP 139/68
[2025-03-03] VITALS (7 sets, daily range): BP systolic 109–125; BP diastolic 56–63
[2025-03-03] MEDS: ATARAX 10 MG PO ×4 (03:39→21:50)
[2025-03-03 06:19] LABS: Blood Urea Nitrogen 10 mg/dl (7-17); Carbon Dioxide 21 mmol/L (22-30); Chloride 113 mmol/L (98-107); Estimated Creatinine Clearance 26 ml/min; Glucose 200 mg/dl (70-99); Magnesium 1.7 mg/dl (1.6-2.3); Potassium 3.4 mmol/L (3.5-5.1); Sodium 138 mmol/L (135-145); eGFR 48.94
[2025-03-03 06:20] LABS: Calcium 7.0 mg/dl (8.4-10.2)
[2025-03-03] MEDS: NEURONTIN 300 MG PO ×2 (07:00→14:50)
--- NOTE | 2025-03-03 07:06 | W.PN.HOSP.TC ---
Addendum entered and electronically signed by Khang Riley MD 03/03/25 22:36:
Attending Addendum-
I saw and evaluated the patient. I reviewed the resident�s note and agree with findings and plan as documented in the resident�s note. Sub: Feels greatly improved after PO steroids. Developed rash after mag sulfate administration. No further
diarrhea denies urinary sxs. Seen with son and DIL present. Rash improving but still mildly itchy. No fevers chills. Full 12 point ROS reviewed and negative except as documented Exam: Vitals reviewed in chart GEN-NAD heart RRR lungs clear abd soff
Skin no rash upper torso and back
Plan:
# Sepsis secondary to Salmonella gastroenteritis
- Salmonella positive in stool and urine
- afebrile
- WBC still elevated
- encourage PO intake; low residue diet
- PT/OT following- refusing SNF
- cont Rocephin 09/12-PO on DC
- flex sig 02/24- no significant findings
- ID input appreciated
#Drug Rash with eosinophilia
- from IV magnesium supplementation
- avoid use and place on allergy list
- hydrocort cream
- start PO pred
# Hypokalemia
- replete aggressively
- monitor BMP
# Nongap metabolic acidosis
- cont bicarb 1300mg bid
- improved
- monitor BMP
# AL on CKD stage IIIa
- resolved
- nephrology following
- monitor BMP
# Asymptomatic bacteriuria
- CTM
- no indication for abx
#Hyponatremia
- resolved
#Anemia of chronic disease:
- stable
IDDM:
- Sliding scale insulin
Disposition
- PT recommends home PT - DC in am
DVT prophylaxis: SCDs
CODE STATUS: Full ->DNR
Time spent coordinating care, review of plan of care with resident, personally reviewed records in EMR, med rec, consults, notes, labs, radiology, d/w nursing POA � 51 mins
Original Note:
Today's Communication/Plan
-
#Salmonella gastroenteritis
- Continue IV ceftriaxone (day 09/12, started 03/01), per ID (s/p 1 dose Zosyn, then ampicillin )
- Continue IVF NS at 125 cc/hr
- Encourage PO intake; low residue diet
#Pruritic erythematous rash, thought to be 2/2 mg sulfate
- Start PO prednisone: 30mg daily for 2-3 days, followed by 6 day taper of 5mg/day
- Continue triamcinolone 0.025% ointment on pruritic/erythematous regions (shoulders, back, thighs, chest) BID
- Per renal, may increase 300mg gabapentin to TID (scheduling it as q8hr per family request)
- Avoid IV Mg sulfate (if future repletion needed, opt for PO Mg formulation)
- Continue claritin PRN for itching
- Continue atarax at night for itching
- May use sarna or other cooling lotions on affected areas
Assessment / Plan
Assessment / Plan
Priya Lawrence is an 84yo F with pmh notable for IDDM, gastroparesis, CKD stage IIIa, and SIBO who presented with fever and bloody diarrhea, found to have salmonella gastroenteritis, improving s/p abx, and with development of pruritic rash &
leukocytosis w eosinophilia thought to be reaction to mg sulfate.
#Salmonella gastroenteritis
AVSS today. Afebrile 98.0. WBC trending slightly down (17.4 today vs. 17.7 yesterday; 15.8 on admission 02/21). Stool cx positive for salmonella. C diff returned negative (03/01).
- Continue IV ceftriaxone (day 37, started 03/01), per ID (s/p 1 dose Zosyn, then ampicillin )
- Continue IVF NS at 125 cc/hr
- Encourage PO intake; low residue diet
- PT/OT following
#Pruritic erythematous rash
Per family, presentation c/w drug reaction rash to rifaximin ~1 yr prior. Rash began on 02/23, only meds administered prior to 02/23 were electrolytes, fluids, iohexol iodinated contrast. Family states pt has received contrast before and that rash
occurred immediately after Mg sulfate infusion. Mg sulfate infusion on 03/02 triggered rash worsening again - stopped infusion partway through. Thought to be trigger for drug reaction rash. Given lack of control with topicals &
gabapentin/atarax/claritin alone, plan for PO steroid course.
- Start PO prednisone: 30mg daily for 2-3 days, followed by 6 day taper of 5mg/day
- Continue triamcinolone 0.025% ointment on pruritic/erythematous regions (shoulders, back, thighs, chest) BID
- Per renal, may increase 300mg gabapentin to TID (scheduling it as q8hr per family request)
- Avoid IV Mg sulfate (if future repletion needed, opt for PO Mg formulation)
- Continue claritin PRN for itching
- Continue atarax at night for itching
- May use sarna or other cooling lotions on affected areas
#Leukocytosis w eosinophilia
WBC 15.8 on admission, has trended up to 17.4 (slightly down from 17.7 yesterday) despite trt for salmonella infection. Urine cx poitive for klebsiella not thought to be culprit, per ID. No urinary sx. Potential for superimposed infection but less
likely given AVSS & clinical picture. Eosinophilia indicates likely 2/2 drug rash, allergic reaction. Stool O&P negative.
- Monitor CBC with differential, differential pending
- Avoid IV Mg sulfate
#Hypokalemia
K 3.4 today, trending up from 3.2 yesterday. Likely 2/2 ongoing bicarb repletion for chronic acidosis and GI losses from diarrheal illness.
- Continue to monitor BMP and replete K as needed
#Nongap metabolic acidosis
Today bicarb 21, stable from yesterday, trending up from 16 prior. Chronic, family reports that her outpatient nephrology was okay with up to [id number] sodium bicarbonate, consider 1300mg bid. At home, pt taking sodium bicarbonate PO 1300mg AM, 1300mg
PM.
- Continue PO bicarb & IV lactated ringers, per renal
- Continue to trend bicarb
#AL on CKD stage IIIa
Cr trending down/stable, 1.1 today (1.5>1.4>1.2>1.1>1.1)
- Continue to monitor BMP
- Continue IVF NS at 125 cc/hr
- Renal following
#Elevated glucose
Glucose 200 today. Anticipated further increase with steroid course.
- Increase sliding scale insulin from low to high
#Asymptomatic bacteriuria
Urine culture grew salmonella, likely a contaminant from fecal matter. Klebsiella in urine cx likely colonization (resistance to ciprofloxacin, and given recent ciprofloxacin administration, supports that she is likely colonized). ID not concerned
about klebsiella. Pt afebrile and without dysuria or frequency or suprapubic tenderness.
- Continue to monitor for any sx
#Hyponatremia
Normalizing/stable, 138 today.
- Continue to monitor BMP
#Chronic issues:
#Anemia of chronic disease - hgb near baseline, continue to monitor
#IDD - sliding scale insulin
#Global
- Dispo: to home (with son/daughter in law; son's preference for home); PT recommends home PT; per 03/02 case mgmt note, planning w family, likely dispo to home with '[facility] for VN, PT/OT'
- DVT prophylaxis: SCDs
- Code status: DNR/DNI
Anticipated Discharge: 24 - 48 hours
Subjective/Interval History
-
Date of Service: March 03, 2025
Son & daughter in law at bedside this am. State that the patient had a tough night - became very itchy around 9:45pm after gabapentin & atarax doses had worn off. Trouble sleeping and not feeling well. Triamcinolone & cooling creams not helping.
They feel that gabapentin has been most efficacious, had issue with TID scheduled timing vs. q8hr for ability to administer. Otherwise, diarrhea is much improved - stools still loose but not incontinent/no accidents. Stool NB. Has been keeping down
food without n/v. Denies f/c. Endorsed speaking w case mgmt yesterday and understand planning for home health care. They will move in with her at her home post-discharge.
Objective Data
-
Labs:
Laboratory Results
03/03/25
05:41
Sodium 138
Potassium 3.4 L
Chloride 113 H
Carbon Dioxide 21 L
BUN 10
Creatinine 1.1 H
Glucose 200 H
Calcium 7.0 L
Vital Signs:
Vital Signs
Temp Pulse Resp BP Pulse Ox
97.7 F 93 16 123/62 96
03/03/25 03:46 03/03/25 03:46 03/03/25 03:46 03/03/25 03:46 03/03/25 03:46
I&O
03/02/25 03/03/25 03/04/25
06:59 06:59 06:59
Intake Total 370 / 370 720 / 720
Balance 370 / 370 720 / 720
Physical Exam
-
General: Other (somnolent)
HEENT: Normocephalic, Atraumatic and Anicteric
Respiratory: Non Labored Respirations
Cardiac: Regular Rhythm
GI: Nondistended
Skin: Rash (mild erythema on R shoulder & axilla and chest; slightly improved from yesterday afternoon)
Neuro: Awake
[2025-03-03 07:50] LABS: Glucose - Point of Care 202 mg/dl (70-99)
--- NOTE | 2025-03-03 09:18 | W.PN.GI.CBS2 ---
Today's Communication / Plan
-
--- No changes per GI
Assessment / Plan
-
Pt is a 84yo with hx NIDDM, CKD, choledocholithiasis, hypothyroidism, anemia, prior master, recent humerus fracture, chronic pain, gastroparesis and constipation. She has been followed by Dr. Ross in office and chronic issues with wt loss,
constipation on chronic bowel regiment with mag citrate, motegrity, senna , early satiety, belching, and gastroparesis. She had recent SIBO testing + and treated with Cipro several weeks ago. She was noted last week with increased belching then
progressed to diarrhea and fever. Imaging and flex as noted below Pt with similar admission several weeks ago. On admission noted with + UTI and stool cx + salmonella.
12/23/24 CT with IV contrast - Mild wall thickening in the stomach and jejunum suggesting a gastroenteritis. Mild diffuse colonic distention.
02/21 flex sig - Sigmoid erythema bx'd. Hemorrhoids. Diverticulosis -Path still pending
Impression
- Salmonella colitis with fever and rash
- Salmonella/Klebsiella UTI
- Leukocytosis
- h/o constipation
- H/o gastroparesis
03/03/25: Stool frequency has slowed down and becoming more formed
Main complaints are pruritic rash that appears to be physically improving
Discussed with ID, ceftriaxone course 7 versus 14 days, started on 03/01/2025
According to ID, the rash is not consistent with Salmonella infection
No blood cultures were done during admission. Patient no longer febrile and on antibiotics
Persistent leukocytosis
Send message to pathology to find out about pending path from her flexible sigmoidoscopy
Potassium replacement per primary and nephrology
Subjective
Subjective
Date of Service: March 03, 2025
Patient's complaints are mainly pruritus from her rash. Reviewed stool pictures with her son, Robert. Stools are more formed and less frequent. No blood
Objective
Data Reviewed
Laboratory Data:
Laboratory Results
03/03/25 05:41
Laboratory Results
Phosphorus 2.7 mg/dl (2.5-4.5) 03/02/25 07:48
Magnesium 1.7 mg/dl (1.6-2.3) 03/03/25 05:41
Total Bilirubin 0.4 mg/dl (0.2-1.3) 02/22/25 05:38
AST 19 U/L (14-36) 02/22/25 05:38
ALT 44 U/L (0-35) H 02/22/25 05:38
Alkaline Phosphatase 104 U/L (38-126) 02/22/25 05:38
Lipase 77 U/L (23-300) 02/21/25 15:38
Vital Signs and I&O:
Vital Signs
Temp Pulse Resp BP Pulse Ox
98.0 F 84 16 118/59 97
03/03/25 07:50 03/03/25 07:50 03/03/25 07:50 03/03/25 07:50 03/03/25 07:50
I&O
03/02/25 03/03/25 03/04/25
06:59 06:59 06:59
Intake Total 370 / 370 1200 / 1200
Balance 370 / 370 1200 / 1200
Physical Exam
Physical Exam
HEENT: Anicteric
GI: Soft, Non Distended and Non Tender
[2025-03-03] MEDS: NOVOLOG FLEXPEN-LOW RESISTANCE 2 UNITS SC ×2 (09:30→14:19)
[2025-03-03] MEDS: SODIUM BICARBONATE 1300 MG PO ×2 (09:31→18:13)
[2025-03-03] MEDS: VISBIOME 1 CAP PO (09:31)
[2025-03-03] MEDS: DELTASONE 30 MG PO (09:31)
[2025-03-03] MEDS: KCL 40 MEQ PO (09:31)
[2025-03-03] MEDS: TRIAMCINOLONE ACETONIDE 0.025% OINTMENT 1 APPLIC TOPICAL (09:32)
[2025-03-03] MEDS: PROTONIX 40 MG PO (09:32)
[2025-03-03] MEDS: CLARITIN 10 MG PO (09:32)
[2025-03-03] MEDS: HYDROCORTISONE 1% CREAM 1 APPLIC TOPICAL (09:32)
[2025-03-03] MEDS: NEURONTIN PO (09:32)
[2025-03-03 09:38] LABS: Hematocrit 25.4 % (37.0-47.0); Hemoglobin 8.5 g/dL (12.0-16.0); Mean Corp Hgb Conc. 33.5 g/dL (33.0-37.0); Mean Corpuscular Volume 87.6 fL (81.0-99.0); Platelet Count 134 10^3/uL (130-400); Red Cell Dist. Width 14.5 % (11.5-14.5)
--- NOTE | 2025-03-03 10:17 | W.PN.NEPH.PH ---
Today's Communication / Plan
-
Replete potassium
Assessment/Plan
-
84-year-old female with H/L of CKD, gastroparesis, DM, hypothyroidism, and SIBO who presents with fever and diarrhea. She started having bloating and diarrhea in past 24 hours. Family noted that she was also febrile with temperature up to 102.
She previously had been treated with Cipro for SIBO She was noted last week with increased belching then progressed to diarrhea and fever. Status post imaging and flex . On admission noted with + UTI and stool cx + salmonella.
Patient was seen by us in the past admissions in December which she had DKA and acute on chronic kidney disease baseline creatinine 1.3
Renal consult for acute on chronic kidney injury and electrolyte abnormalities and hypokalemia
Impression:
Acute kidney injury
Diarrhea /Salmonella positive
Metabolic acidosis (AG 12)
CKD stage IIIa (1.3)
Diabetes
Hypothyroidism
Hyperlipidemia
Electrolyte abnormality
Nongap metabolic acidosis
Postherpetic neuralgia
Plan:
Replete potassium
Follow magnesium. Family suspects that the magnesium supplementation has resulted in the rash. This may have also happened previously as well. Will use oral magnesium if she requires repletion in the future
Continue p.o. bicarbonate twice daily
gabapentin 3 times daily
-
-
Date of Service: March 03, 2025
CC / HPI / ROS
-
Chief Complaint:
Acute kidney injury
History of Present Illness:
Acute kidney injury with diarrhea positive Salmonella
Diarrhea slowly improving, now loose
Potassium remains low 3.4
Magnesium improved 1.7
Creatinine stable 1.1
Review of Systems:
Shingles discomfort
No chest pain or shortness of breath
Diarrhea improving
Diffuse pruritic rash arms and chest
Labs
-
Labs:
WBC 17.4 10^3/uL (4.8-10.8) H 03/03/25 05:41
RBC 2.90 10^6/uL (4.20-5.40) L 03/03/25 05:41
Hgb 8.5 g/dL (12.0-16.0) L 03/03/25 05:41
Hct 25.4 % (37.0-47.0) L 03/03/25 05:41
Plt Count 134 10^3/uL (130-400) 03/03/25 05:41
Sodium 138 mmol/L (135-145) 03/03/25 05:41
Potassium 3.4 mmol/L (3.5-5.1) L 03/03/25 05:41
Chloride 113 mmol/L (98-107) H 03/03/25 05:41
Carbon Dioxide 21 mmol/L (22-30) L 03/03/25 05:41
BUN 10 mg/dl (7-17) 03/03/25 05:41
Creatinine 1.1 mg/dL (0.6-1.0) H 03/03/25 05:41
eGFR 48.94 03/03/25 05:41
Glucose 200 mg/dl (70-99) H 03/03/25 05:41
Calcium 7.0 mg/dl (8.4-10.2) L 03/03/25 05:41
Phosphorus 2.7 mg/dl (2.5-4.5) 03/02/25 07:48
Albumin 2.8 g/dl (3.5-5.0) L 02/22/25 05:38
Physical Exam
-
Vital Signs:
Vital Signs
Temp Pulse Resp BP Pulse Ox
98.0 F 84 16 118/59 97
03/03/25 07:50 03/03/25 07:50 03/03/25 07:50 03/03/25 07:50 03/03/25 07:50
Cardiovascular:: Regular rate and rhythm
Respiratory:: Bilateral: Coarse
Lung Excursion:: Normal
Abdomen:: Nontender and Soft
Bowel Sounds:: Normal
Extremity Edema:: None: Bilateral:
Other Findings::
Blanching macular rash arms and chest
--- NOTE | 2025-03-03 12:31 | CM ---
Reviewed the chart notes and spoke with the patient's son at bedside. Family has decided to have patient receive in home PT/OT at discharge. Per son, family will stay with the patient as long as needed. Discussed agencies. Son selected PT/OT.
Referral made in [facility]. continues to be available to patient/family and is monitoring medical plan for needs at discharge.
Plan: Discharge to home when medically stable with PT/OT services only. Family not interested in VN services.
[2025-03-03 12:54] LABS: Glucose - Point of Care 201 mg/dl (70-99)
--- NOTE | 2025-03-03 13:33 | W.PN.ID1 ---
Date of Service
Date of Service: March 03, 2025
Today's Communication
Continue ceftriaxone.
Assessment / Plan
# Salmonella gastroenteritis
# Fever resolved
- Diarrhea resolving
- Continue ceftriaxone IV (d6 of 7 abx)
- Continue supportive care.
# Pruritic rash - due to magnesium-sulfate
# Leukocytosis with eosinophilia (allergy)
- Onset of rash prior to antibiotic.
- Offending agent likely due to MgSO4.
Onset of rash after first dose (02/23). Had worsening of the rash with second dose (03/02)
Rash and pruritus now improved on prednisone.
- Trend wbc/eos
# Conditions present on admission
Diabetes mellitus
Diabetic retinopathy
Gastroparesis
Small intestine bacterial overgrowth
Hypothyroidism
Chronic right hydronephrosis
CKD3
Rectocele
Cholecystectomy
Chief Complaint
-: Leukocytosis and Other (Diarrhea)
Subjective / Review of Systems
No stool overnight. Had 1 BM this am.
Appetite better.
Last night had intense flare-up of the rash, now better with prednisone.
Vital Signs / Physical Exam
Vital Signs
Vital Signs
Temp Pulse Resp BP Pulse Ox
98.1 F 80 16 116/56 97
03/03/25 11:31 03/03/25 11:31 03/03/25 11:31 03/03/25 11:31 03/03/25 11:31
Physical Exam
Constitutional: Comfortable
Eyes: No Conjunctival Hemorrhage and Sclera Anicteric
Cardiovascular: Regular Rate and Irregular Rate
Pulmonary: Clear
Gastrointestinal: Soft, Non Tender and Non Distended
Extremities: Negative Edema
Objective Data
Lab Data
Lab Results
03/03/25 05:41
03/03/25 05:41
Estimated Creat Clear 26 ml/min 03/03/25 05:41
Total Bilirubin 0.4 mg/dl (0.2-1.3) 02/22/25 05:38
AST 19 U/L (14-36) 02/22/25 05:38
ALT 44 U/L (0-35) H 02/22/25 05:38
Alkaline Phosphatase 104 U/L (38-126) 02/22/25 05:38
Most recent labs reviewed.
Micro Results:
03/01/25 12:48 Cryptosporidium/Giardia - Final
Feces/Stool Negative for Cryptosporidium and/or Giardia Lamblia
antigens.
C. difficile GDH Antigen & Toxins - Final
Negative for toxigenic C.difficile
02/22/25 16:12 Urine Culture - Final
Urine Salmonella species
Klebsiella pneumoniae
02/21/25 16:38 Salmonella/Shigella Culture - Final
Feces/Stool Salmonella species
Campylobacter Culture - Final
No Campylobacter species isolated.
Shiga Toxin Test - Final
No E. coli Shiga Toxin 1 or 2 detected.
02/21/25 16:38 Miscellaneous Microbiology Test - Pending
Feces/Stool
02/22/25 23:57 C. difficile GDH Antigen & Toxins - Final
Feces/Stool Negative for toxigenic C.difficile
02/21/25 16:38 C. difficile GDH Antigen & Toxins - Final
Feces/Stool Negative for toxigenic C.difficile
- Final
Negative for Norovirus GI and GII.
02/23/25 AXR: The amount of stool present appears within normal limits. No significantly dilated air-filled loops of bowel.
Care Review
Plan reviewed with: Physician (Dr. Ross)
--- NOTE | 2025-03-03 13:48 | VNURNOTE ---
Home Health Liaison met with patient at bedside to discuss [facility] nurse/therapy, visits, schedule and homebound status. Patient is agreeable and understands that visits at home will be 2-3 x per week to assess and teach medical management. Patient
is aware that [facility] will contact them for start of care in 1-2 days after discharge from . Provided contact number for [facility]. Patient is agreeable to 1 VN visit, then just requests home PT, OT. [facility] Intake updated.
[facility] referral completed in [facility].
[2025-03-03 17:56] LABS: Glucose - Point of Care 247 mg/dl (70-99)
[2025-03-03] MEDS: NOVOLOG FLEXPEN-MODERATE RESISTANCE 3 UNITS SC (18:10)
[2025-03-03] MEDS: ROCEPHIN 2000 MG IV (18:12)
[2025-03-03] MEDS: FLUSH (NSS) 2 FLUSH IV (18:12)
[2025-03-03] MEDS: STERILE WATER FOR INJECTION 20 ML IV (18:13)
[2025-03-03] MEDS: HYDROCORTISONE 1% CREAM TOPICAL (21:58)
[2025-03-03] MEDS: TRIAMCINOLONE ACETONIDE 0.025% OINTMENT TOPICAL (21:58)
[2025-03-03 22:09] LABS: Glucose - Point of Care 350 mg/dl (70-99)
[2025-03-03] MEDS: NOVOLOG FLEXPEN 6 UNITS SC (22:38)
[2025-03-04 01:06] LABS: Glucose - Point of Care 255 mg/dl (70-99)
[2025-03-04] MEDS: NEURONTIN PO (01:43)
[2025-03-04 03:35] VITALS: BP 112/56
[2025-03-04 05:40] VITALS: BMI 19.7
[2025-03-04 06:00] VITALS: BMI 19.7
[2025-03-04] MEDS: ATARAX 10 MG PO (06:00)
[2025-03-04 06:48] LABS: Hematocrit 25.9 % (37.0-47.0); Hemoglobin 8.6 g/dL (12.0-16.0); Mean Corp Hgb Conc. 33.2 g/dL (33.0-37.0); Mean Corpuscular Volume 86.3 fL (81.0-99.0); Platelet Count 142 10^3/uL (130-400); Red Cell Dist. Width 14.6 % (11.5-14.5)
--- NOTE | 2025-03-04 07:02 | W.PN.HOSP.TC ---
Addendum entered and electronically signed by Khang Riley MD 03/04/25 23:18:
Attending Addendum-
I saw and evaluated the patient. I reviewed the resident�s note and agree with findings and plan as documented in the resident�s note. Sub: Feels greatly improved after PO steroids. no further rash. in great spirits. No further diarrhea denies
urinary sxs. Seen with DIL present. No fevers chills. Wants to go home. Full 12 point ROS reviewed and negative except as documented Exam: Vitals reviewed in chart GEN-NAD heart RRR lungs clear abd soff Skin no rash upper torso and back dry skin
Plan:
# Sepsis secondary to Salmonella gastroenteritis
- Salmonella positive in stool and urine
- afebrile
- WBC still elevated likely stress rxn
- encourage PO intake; low residue diet
- cont Rocephin /-PO on DC
- flex sig 02/24- no significant findings
- ID input appreciated
- repeat CBC as OP
#Drug Rash with eosinophilia
- from IV magnesium sulfate supplementation
- avoid use and placed on allergy list
- hydrocort cream
- cont PO pred taper on dc
# Hypokalemia
- resolved
# Nongap metabolic acidosis
- cont bicarb 1300mg bid
- resolved
# AL on CKD stage IIIa
- resolved
- nephrology following
# Asymptomatic bacteriuria
- CTM
- no indication for abx
#Hyponatremia
- resolved
#Anemia of chronic disease:
- stable
IDDM:
- Sliding scale insulin
Disposition
- PT recommends home PT - DC home today
DVT prophylaxis: SCDs
CODE STATUS: Full ->DNR
Time spent coordinating care, DC planning, review of DC plan of care with resident, transition of care, review of records, med rec/scripts sent electronically, consults, notes, d/w consultants, nursing, family, and CM� 33 mins >50% of this time was
devoted to counseling and coordination of care
Original Note:
Today's Communication/Plan
-
- Continue PO prednisone: 30mg daily for 2-3 days (day 2/3), followed by taper of 10mg/day
- Continue triamcinolone 0.025% ointment on pruritic/erythematous regions (shoulders, back, thighs, chest) BID
- Per renal, increase 300mg gabapentin to TID (scheduling it as q8hr per family request)
- Avoid IV Mg sulfate (if future repletion needed, opt for PO Mg formulation)
- Continue claritin PRN for itching
- Continue atarax at night for itching, only if needed
- May use sarna or other cooling lotions on affected areas
- CBC f/u 1 week outpatient
Assessment / Plan
Assessment / Plan
Priya Lawrence is an 84yo F with pmh notable for IDDM, gastroparesis, CKD stage IIIa, and SIBO who presented with fever and bloody diarrhea, found to have salmonella gastroenteritis, improving s/p abx, and with development of pruritic rash &
leukocytosis w eosinophilia thought to be reaction to mg sulfate, improved s/p prednisone.
#Salmonella gastroenteritis, resolving
AVSS today. Stool cx positive for salmonella. C diff returned negative (03/01). Diarrheal sx improving, pt appears well.
- Continue IV ceftriaxone (day 10/13, started 03/01) (s/p 1 dose Zosyn, then ampicillin 02/26-) > convert to Cefixime 400 mg PO daily to finish 7-day course on discharge
- Encourage PO intake; low residue diet
#Pruritic erythematous rash, improving
Per family, presentation c/w drug reaction rash to rifaximin ~1 yr prior. Rash began on 02/23, no abx administered prior to 02/23. Family states that rash occurred immediately after Mg sulfate infusion. Mg sulfate infusion on 03/02 triggered rash
worsening again - stopped infusion partway through. Thought to be trigger for drug reaction rash. Improving with PO prednisone course, w supplemental topical triamcinolone & gabapentin/atarax/claritin.
- Continue PO prednisone: 30mg daily for 2-3 days (day 2/3), followed by 10mg/day taper
- Continue triamcinolone 0.025% ointment on pruritic/erythematous regions (shoulders, back, thighs, chest) BID
- Per renal, increase 300mg gabapentin to TID (scheduling it as q8hr per family request)
- Avoid IV Mg sulfate (if future repletion needed, opt for PO Mg formulation)
- Continue claritin PRN for itching
- Continue atarax at night for itching, only if needed
- May use sarna or other cooling lotions on affected areas
#Leukocytosis
WBC 15.8 on admission, trended up to 17.4 (slightly down from 17.7 yesterday) with eosinophilia, despite trt for salmonella infection. Urine cx poitive for klebsiella not thought to be culprit, per ID. No urinary sx. Potential for superimposed
infection but less likely given AVSS & clinical picture. Eosinophilia indicates likely 2/2 drug rash, allergic reaction. Stool O&P negative. Today WBC up to 20.5 but without eosinophilia. Supports improvement in drug rxn and steroid-induced
leukocytosis.
- Monitor CBC with differential
- Avoid IV Mg sulfate
- Follow-up CBC outpatient 1 week after discharge
#Hypocalcemia
Low Ca 6.9 today (from 7.0 yesterday). Albumin-corrected Ca: 7.9, still slightly low. Likely 2/2 combination of steroid course & already-low Ca 2/2 low albumin/protein due to chronic dz. She takes calcium carbonate at home, chronic hypocalcemia at
baseline. Pt asymptomatic, denies paresthesias.
- Replete with 1g calcium carbonate
- Continue home calcium carbonate on discharge
#Hypokalemia, resolved
K 3.9 today, trending up from 3.4 yesterday. Was likely 2/2 ongoing bicarb repletion for chronic acidosis and GI losses from diarrheal illness.
- Continue to monitor BMP and replete K as needed
#Nongap metabolic acidosis, resolving
Today bicarb 22, up from yesterday, trending up from 16 prior. Chronic, family reports that her outpatient nephrology was okay with up to [id number] sodium bicarbonate, consider 1300mg bid. At home, pt taking sodium bicarbonate PO 1300mg AM, 1300mg PM.
- Continue PO bicarb & IV lactated ringers, per renal
- Continue to trend bicarb
#AL on CKD stage IIIa
Cr trending down/stable, 1.1 today (1.5>1.4>1.2>1.1>1.1)
- Continue to monitor BMP
- Renal following
#Elevated glucose
Glucose up to 255 today. Expected s/p prednisone. Pt on increased insulin sliding scale (low>moderate).
- Continue insulin moderate sliding scale
#Chronic issues:
#Anemia of chronic disease - hgb near baseline, continue to monitor
#IDD - sliding scale insulin
#Global
- Dispo: planned for today to home; per case mgmt, family agrees to home PT/OT & family will live w patient
- DVT prophylaxis: SCDs
- Code status: DNR/DNI
Anticipated Discharge: Today
Subjective/Interval History
-
Date of Service: March 04, 2025
Feeling much better this morning from rash/energy perspective - sitting up in chair working on art project. Family (son & daughter in law) at bedside. Says still a little itchy on R arm & leg but much better. Redness has also improved s/p steroids.
Stool still loose but no incontinence, nonbloody. Feeling well. Ready for dispo.
Objective Data
-
Labs:
Laboratory Results
03/04/25 03/04/25
06:04 09:05
WBC 18.8 H Pending
Hgb 8.6 L Pending
Hct 25.9 L Pending
Plt Count 142 Pending
Sodium Pending
Potassium Pending
Chloride Pending
Carbon Dioxide Pending
BUN Pending
Creatinine Pending
Glucose Pending
Calcium Pending
Total Bilirubin Pending
AST Pending
ALT Pending
Alkaline Phosphatase Pending
Vital Signs:
Vital Signs
Temp Pulse Resp BP Pulse Ox
97.7 F 81 16 112/56 96
03/04/25 03:35 03/04/25 03:35 03/04/25 03:35 03/04/25 03:35 03/04/25 03:35
I&O
03/03/25 03/04/25 03/05/25
06:59 06:59 06:59
Intake Total 1200 / 1200 660 / 660
Balance 1200 / 1200 660 / 660
Review of Systems
-
History Source: Patient and Family
Constitutional: Reports No Symptoms
Abdomen/GI: Reports Diarrhea (improving) and Bloody Stools (denies)
Skin: Reports Itching (mild) and Rash (improving rash)
Physical Exam
-
General: Well Developed and Conversant
HEENT: Normocephalic, Atraumatic and Anicteric
Respiratory: Clear to Auscultation and Non Labored Respirations
Cardiac: Regular Rhythm
GI: Soft, Nontender and Nondistended
Skin: Warm, Dry and Rash (erythema on chest, R shoulder, bilateral thighs present but much improved)
Neuro: Awake, Alert and Oriented
Psych: Calm
Data Reviewed
-
Total Time Spent with Patient (in minutes): 15
Critical Care Time (in minutes): 35
Labs: Labs Reviewed by me
[2025-03-04 07:18] LABS: Nucleated Red Blood Cells % 0 %
[2025-03-04 07:22] LABS: ALT (SGPT) 22 U/L (0-35); AST (SGOT) 19 U/L (14-36); Albumin 2.8 g/dl (3.5-5.0); Alkaline Phosphatase 84 U/L (38-126); Blood Urea Nitrogen 14 mg/dl (7-17); Calcium 6.9 mg/dl (8.4-10.2); Carbon Dioxide 22 mmol/L (22-30); Chloride 112 mmol/L (98-107); Estimated Creatinine Clearance 26 ml/min; Glucose 174 mg/dl (70-99); Potassium 3.9 mmol/L (3.5-5.1); Sodium 140 mmol/L (135-145); Total Protein 5.0 g/dl (6.3-8.2); eGFR 48.94
[2025-03-04 07:23] VITALS: BP 120/72
[2025-03-04 07:56] LABS: Glucose - Point of Care 190 mg/dl (70-99)
--- NOTE | 2025-03-04 09:04 | CM ---
Reviewed the chart notes and spoke with the patient and son at the bedside. IMM reviewed. Patient's son to transport home. CM continues to be available to patient/family and is monitoring medical plan for needs at discharge.
Plan: Discharge to home today with PT/OT. Accepted in Care Port.
[2025-03-04] MEDS: DELTASONE 30 MG PO (09:18)
[2025-03-04] MEDS: SODIUM BICARBONATE 1300 MG PO (09:18)
[2025-03-04] MEDS: VISBIOME 1 CAP PO (09:18)
[2025-03-04] MEDS: OSCAL CAL 500 1000 MG PO (09:19)
[2025-03-04] MEDS: NEURONTIN 300 MG PO (09:19)
[2025-03-04] MEDS: PROTONIX 40 MG PO (09:19)
[2025-03-04] MEDS: NOVOLOG FLEXPEN-MODERATE RESISTANCE 1 UNITS SC (09:20)
[2025-03-04 09:30] LABS: Hematocrit 27.3 % (37.0-47.0); Hemoglobin 9.1 g/dL (12.0-16.0); Mean Corp Hgb Conc. 33.3 g/dL (33.0-37.0); Mean Corpuscular Volume 86.7 fL (81.0-99.0); Platelet Count 138 10^3/uL (130-400); Red Cell Dist. Width 14.5 % (11.5-14.5)
[2025-03-04] MEDS: TRIAMCINOLONE ACETONIDE 0.025% OINTMENT 1 APPLIC TOPICAL (09:32)
[2025-03-04] MEDS: HYDROCORTISONE 1% CREAM TOPICAL (09:33)
--- NOTE | 2025-03-04 10:15 | W.PN.ID1 ---
Date of Service
Date of Service: March 04, 2025
Today's Communication
Can move up last dose of ceftriaxone to 1400, then dc home. No further abx necessary.
Assessment / Plan
# Salmonella gastroenteritis
# Fever resolved
- Diarrhea resolved
- Last day of ceftriaxone IV (d7 of 7 appropriate abx)
- Can move up last dose of ceftriaxone to 1400.
- No need for outpatient abx.
# Pruritic rash - due to magnesium-sulfate
# Leukocytosis, on steroid
- Eosinophilia resolved on prednisone
- Clininically improving on steroid
# Conditions present on admission
Diabetes mellitus
Diabetic retinopathy
Gastroparesis
Small intestine bacterial overgrowth
Hypothyroidism
Chronic right hydronephrosis
CKD3
Rectocele
Cholecystectomy
Chief Complaint
-: Leukocytosis and Other (Diarrhea)
Subjective / Review of Systems
Last BM 7pm last night - loose stool.
Rash and itiching much improved on steroid.
Vital Signs / Physical Exam
Vital Signs
Vital Signs
Temp Pulse Resp BP Pulse Ox
98.3 F 87 16 120/72 98
03/04/25 07:23 03/04/25 07:23 03/04/25 07:23 03/04/25 07:23 03/04/25 07:23
Physical Exam
Constitutional: No Acute Distress
Gastrointestinal: Soft, Non Tender and Non Distended
Genito-Urinary: Negative Hammer
Skin: Rash (resolving)
Neurological: AO x 3
Objective Data
Lab Data
Lab Results
03/04/25 09:02
03/04/25 06:04
Estimated Creat Clear 26 ml/min 03/04/25 06:04
Total Bilirubin 0.2 mg/dl (0.2-1.3) 03/04/25 06:04
AST 19 U/L (14-36) 03/04/25 06:04
ALT 22 U/L (0-35) 03/04/25 06:04
Alkaline Phosphatase 84 U/L (38-126) 03/04/25 06:04
Most recent labs reviewed.
Micro Results:
03/01/25 12:48 Cryptosporidium/Giardia - Final
Feces/Stool Negative for Cryptosporidium and/or Giardia Lamblia
antigens.
C. difficile GDH Antigen & Toxins - Final
Negative for toxigenic C.difficile
02/22/25 16:12 Urine Culture - Final
Urine Salmonella species
Klebsiella pneumoniae
02/21/25 16:38 Salmonella/Shigella Culture - Final
Feces/Stool Salmonella species
Campylobacter Culture - Final
No Campylobacter species isolated.
Shiga Toxin Test - Final
No E. coli Shiga Toxin 1 or 2 detected.
02/21/25 16:38 Miscellaneous Microbiology Test - Pending
Feces/Stool
02/22/25 23:57 C. difficile GDH Antigen & Toxins - Final
Feces/Stool Negative for toxigenic C.difficile
02/21/25 16:38 C. difficile GDH Antigen & Toxins - Final
Feces/Stool Negative for toxigenic C.difficile
- Final
Negative for Norovirus GI and GII.
02/23/25 AXR: The amount of stool present appears within normal limits. No significantly dilated air-filled loops of bowel.
[2025-03-04 11:02] VITALS: BP 112/57; BP 125/57; PULSE 82; O2SAT 99
[2025-03-04 11:21] LABS: Glucose - Point of Care 216 mg/dl (70-99)
[2025-03-04 11:27] VITALS: BP 119/54
[2025-03-04] MEDS: NOVOLOG FLEXPEN-MODERATE RESISTANCE 3 UNITS SC (11:33)
--- NOTE | 2025-03-04 12:45 | W.PN.NEPH.PH ---
Today's Communication / Plan
-
Would be okay for discharge from renal standpoint
Assessment/Plan
-
84-year-old female with H/L of CKD, gastroparesis, DM, hypothyroidism, and SIBO who presents with fever and diarrhea. She started having bloating and diarrhea in past 24 hours. Family noted that she was also febrile with temperature up to 102.
She previously had been treated with Cipro for SIBO She was noted last week with increased belching then progressed to diarrhea and fever. Status post imaging and flex . On admission noted with + UTI and stool cx + salmonella.
Patient was seen by us in the past admissions in December which she had DKA and acute on chronic kidney disease baseline creatinine 1.3
Renal consult for acute on chronic kidney injury and electrolyte abnormalities and hypokalemia
Impression:
Acute kidney injury
Diarrhea /Salmonella positive
Metabolic acidosis (AG 12)
CKD stage IIIa (1.3)
Diabetes
Hypothyroidism
Hyperlipidemia
Electrolyte abnormality
Nongap metabolic acidosis
Postherpetic neuralgia
Plan:
Potassium stable
Continue p.o. bicarbonate twice daily 1300 mg
gabapentin 3 times daily
Creatinine stable
Would be okay for discharge from renal standpoint
-
-
Date of Service: March 04, 2025
CC / HPI / ROS
-
Chief Complaint:
Acute kidney injury
History of Present Illness:
Acute kidney injury with diarrhea positive Salmonella
Diarrhea slowly improving, now loose
Potassium remains low 3.4
Magnesium improved 1.7
Creatinine stable 1.1
Review of Systems:
Shingles discomfort
No chest pain or shortness of breath
Diarrhea improving
Labs
-
Labs:
WBC 20.5 10^3/uL (4.8-10.8) H 03/04/25 09:02
RBC 3.15 10^6/uL (4.20-5.40) L 03/04/25 09:02
Hgb 9.1 g/dL (12.0-16.0) L 03/04/25 09:02
Hct 27.3 % (37.0-47.0) L 03/04/25 09:02
Plt Count 138 10^3/uL (130-400) 03/04/25 09:02
Sodium 140 mmol/L (135-145) 03/04/25 06:04
Potassium 3.9 mmol/L (3.5-5.1) 03/04/25 06:04
Chloride 112 mmol/L (98-107) H 03/04/25 06:04
Carbon Dioxide 22 mmol/L (22-30) 03/04/25 06:04
BUN 14 mg/dl (7-17) 03/04/25 06:04
Creatinine 1.1 mg/dL (0.6-1.0) H 03/04/25 06:04
eGFR 48.94 03/04/25 06:04
Glucose 174 mg/dl (70-99) H 03/04/25 06:04
Calcium 6.9 mg/dl (8.4-10.2) L* 03/04/25 06:04
Phosphorus 2.7 mg/dl (2.5-4.5) 03/02/25 07:48
Albumin 2.8 g/dl (3.5-5.0) L 03/04/25 06:04
Physical Exam
-
Vital Signs:
Vital Signs
Temp Pulse Resp BP Pulse Ox
97.4 F 78 16 119/54 99
03/04/25 11:27 03/04/25 11:27 03/04/25 11:27 03/04/25 11:27 03/04/25 11:27
Cardiovascular:: Regular rate and rhythm
Lung Excursion:: Normal
Abdomen:: Nontender and Soft
Bowel Sounds:: Normal
Extremity Edema:: None: Bilateral:
Other Findings::
Blanching macular rash arms and chest
[2025-03-04] MEDS: ROCEPHIN 2000 MG IV (13:39)
[2025-03-04] MEDS: STERILE WATER FOR INJECTION 20 ML IV (13:40)
--- NOTE | 2025-03-04 14:54 | W.DCSUMMARY ---
Addendum entered and electronically signed by Khang Riley MD 03/04/25 23:20:
Read, reviewed, and agree. See same day progress note for additional details.
Nathan Riley MD
Original Note:
Documented by User: Татьяна Apodaca MD, Resident 03/04/25 16:42
Discharge Summary
Discharge Data
Date of Admission: 02/21/25
Date of Discharge: 03/04/25
Total time spent discharging patient (in min): 40
-
Pending Results: No
Hospital Course
Discharging Physician : Татьяна Bustos
Disposition : Home with PT/OT, son and [id number] staying with patient at home
Primary care physician : Sanchez Marshall
Principal Discharge diagnosis : Salmonella enteritis; drug-induced rash
Chronic Discharge diagnoses : Non-gap metabolic acidosis; CKD stage IIIa; insulin-dependent diabetes; anemia of chronic disease; gastroparesis
Hospital Course :
1. Salmonella enteritis
Patient admitted with acute copious nonbloody foul-smelling diarrhea with temperature up to 102. Temperature 100.5 on admission with all other vital signs within normal limits. Elevated white count 15.8. Had recent history of Cipro use for SIBO.
Later that day patient had change in BM color to orange/red and had positive heme test. Stool cultures returned positive for Salmonella species (negative for C. difficile, negative for norovirus, negative for Cryptosporidium and Giardia, negative
for Campylobacter, negative for Shiga toxin). Patient given 4 days of ampicillin then switched to ceftriaxone 2000 mg daily (starting 03/01) for 7-day course. Completing 7-day course upon discharge with p.o. cefixime 400 mg. Patient diarrhea
symptoms much improved over hospital course - no more incontinence. Stool remained liquid/semisolid, but nonbloody and able to be controlled. Patient appeared well, afebrile
2. Pruritic rash
Pruritic erythematous macular rash on shoulders, upper back, upper chest, and bilateral inner thighs began on 02/23, day 3 of admission. Family states that it began after receiving magnesium sulfate infusion. Patient had not received any
antibiotics or other medications prior to the 02/23. Family states this presentation was similar to prior drug rash that was a reaction to rifaximin. Attempted readministration of mag hummel at discharge. Lfate on 03/02 triggered worsening of rash
again, infusion was stopped partway through. Presumed to be drug reaction rash. Patient was managed over hospital course with med regimens including gabapentin q8h, Atarax prn before bed, and prn Claritin. Topical treatment included 1%
hydrocortisone, which was converted to 0.025% triamcinolone ointment, in addition to a menthol cooling cream. On the morning of 03/03, patient still experiencing discomfort, despite some improvement in erythema - decided to initiate oral prednisone.
At discharge, patient is s/p 2 days of 30 mg prednisone, which greatly improved her pruritus and erythema. Plan for 2 more days of 30 mg prednisone followed by 10 mg a day taper to 0 mg outpatient. Patient should avoid mag sulfate IV infusions
and instead opted for p.o. mag repletion if needed in the future.
3. Leukocytosis
Patient with elevated WBC on admission to 15.8. WBC dipped to emma of 9.7 and then began to rise up to 17.7 over the course of days. CBC with differential demonstrated elevated eosinophils (7.2%). Stool O&P sent, negative. Eosinophilia thought
to be associated with pruritic rash and drug reaction/systemic inflammation, perhaps with element of inflammatory state due to enteritis, but not Salmonella associated greg spot rash. Eosinophilia resolved after starting prednisone. WBC elevated
at discharge to 20.5, likely secondary to steroid induced leukocytosis. Low concern for other underlying infection driving leukocytosis, given patient's clinical picture, well appearance, no fevers. Urine culture on 02/22 grew Salmonella species and
Klebsiella pneumonia, thought to be contaminant/colonization and not source of infection. Patient denies dysuria suprapubic tenderness. Klebsiella is also covered by antibiotic regimen being followed for Salmonella enteritis. Plan to follow-up
with outpatient labs, CBC with differentia, in 1 week to review with outpatient PCP.
4. Hypokalemic metabolic acidosis
Patient with known chronic non-gap metabolic acidosis on admission, repleting bicarb at home. During hospital course, continued p.o. bicarb and IV lactated ringer's. Was followed by renal team. Also continued to monitor potassium and repleted as
needed. K was 3.9 on day of admission and bicarb was 22, both trended up over the admission period.
5. Other
Patient with mild AL, creatinine trended down over the course of admission from 1.5-1.1 at time of discharge.
Patient with episode of hypocalcemia to 6.9 on 03/04, albumin corrected calcium at 7.9, repleted with 1 g calcium carbonate. Patient to continue on home calcium carbonate on discharge.
Important imaging findings : N/A
Procedure findings : Flexible sigmoidoscopy on found erythematous mucosa in the sigmoid colon, external and internal hemorrhoids, diverticulosis in the sigmoid colon. Random colon biopsy found 'mild active colitis 'consistent with infectious
etiology with neutrophil predominance.
Discharge Plan
-
Patient Disposition: Home with Home Care
Discharge Diagnosis/Procedures: salmonella enteritis
Condition: Good
Diet: As tolerated and Diabetic, Carb Controlled
Activity: With assistance and As tolerated
Additional Activity: home PT/OT
Driving Restrictions: As prior to admission
Bathing Restrictions: None
Blood Work: Get CBC labs 1 week after discharge and discuss with your primary care physician at appointment in about 1 week
Other Services: PT and OT
Activity Restrictions/Additional Instructions:
follow recommendations by home PT/OT
Referrals:
Jimbo Vega MD [Active, Gastroenterology]
Referral Note: s/p hospitalization for salmonella enteritis
Sanchez Marshall MD [Family Provider, Family Practice]
Additional Discharge Medication Instructions: Prednisone: Continue 30mg prednisone tomorrow & (03/05-). Then, starting 03/07, taper prednisone dose by 10mg/day until 0mg.
Antibiotics: She received 4th dose of ceftriaxone on 03/04 IV. To finish out 7-day course, she should take 3 days of cefixime (400mg/day) with last dose on 03/07.
Triamcinolone: May apply up to BID for max 4 weeks, ideally 2 weeks on/2 weeks off if needed that long. Avoid applying to groin/genital or sensitive areas in thin skin folds.
Atarax: Only for emergency use with itching episodes as needed, not intended for long-term or routine use.
Prescriptions:
New
triamcinolone acetonide 0.025 % Ointment
1 applic topical BID Qty: 1 0RF
cefixime [Suprax] 400 mg capsule
400 mg PO DAILY Qty: 3 0RF
hydroxyzine HCl 10 mg Tablet
10 mg PO HS PRN (Reason: itching episodes) Qty: 7 0RF
prednisone 10 mg tablet
See Taper PO DAILY 4 Days Qty: 12 0RF
Taper: Prednisone DC Starting at 40 mg daily
30 mg Daily for 2 Days and 0 Hour
20 mg Daily for 1 Day and 0 Hour
10 mg Daily for 1 Day and 0 Hour
Rx Instructions:
Take 30mg daily for 2 days (03/05, 03/06). Then, 1 day of 20mg (03/07). Then, 1 day of 10mg (03/08).
Continued
aspirin 81 MG tablet,chewable
81 mg PO QPM
levothyroxine 25 MCG tablet
25 mcg PO DAILY
PreserVision AREDS-2 1 EACH capsule
1 ea PO BID
magnesium citrate 125 mg Capsule
125 mg PO QPM
Patient Comments:
pharm
gabapentin 300 MG capsule
300 mg PO BID
calcium carbonate-vitamin D3 [Calcium 600 + D(3)] 600 mg-10 mcg (400 unit) Tablet
1 tab PO DAILY
acetaminophen 650 mg Tablet Extended Release
1,300 mg PO Q8HPRN PRN (Reason: mild pain)
Visbiome 112.5 billion cell Capsule
1 cap PO DAILY
sodium bicarbonate 650 mg tablet
650 mg PO DAILY
sodium bicarbonate 650 mg tablet
1,300 mg PO QPM
pantoprazole 40 mg tablet,delayed release (DR/EC)
40 mg PO DAILY
insulin aspart U-100 [Novolog FlexPen U-100 Insulin] 100 unit/mL (3 mL) insulin pen
See Rx Instructions .ROUTE .COMPLEX PRN (Reason: If glucose is elevated pre meal)
Rx Instructions:
sliding scale AC
insulin degludec 100 unit/mL (3 mL) Insulin Pen
See Rx Instructions .ROUTE .COMPLEX
Rx Instructions:
sliding scale, daily
Held
prucalopride [Motegrity] 2 mg Tablet
2 mg PO DAILY
Hold Instructions: Resume on 03/11/25. Stools need to go back to formed or stopped completely with no diarrhea before restarting. If patient skips 2 days with no bowel movements, she can restart the laxatives early.
polyethylene glycol 3350 17 gram Powder In Packet
17 g PO QPM
Hold Instructions: Resume on 03/11/25. Stools need to go back to formed or stopped completely with no diarrhea before restarting. If patient skips 2 days with no bowel movements, she can restart the laxatives early.
simethicone 180 mg Capsule
180 mg PO DAILYPRN PRN (Reason: gas)
Hold Instructions: Resume on 03/11/25. Stools need to go back to formed or stopped completely with no diarrhea before restarting. If patient skips 2 days with no bowel movements, she can restart the laxatives early.
sennosides [senna] 8.6 mg Tablet
17.2 mg PO QPM
Hold Instructions: Resume on 03/11/25. Stools need to go back to formed or stopped completely with no diarrhea before restarting. If patient skips 2 days with no bowel movements, she can restart the laxatives early.
Discharge Orders:
Discharge Patient (As Directed); Ordered 03/04/25
Ordered By: Татьяна Apodaca
Discharge Date and Time
Discharge Date/Time: 03/04/25 16:13
Print Language: HAITIAN

Documented by User: Khang Riley MD 03/04/25 23:13
Discharge Summary
Discharge Data
Date of Admission: 02/21/25
Date of Discharge: 03/04/25
Discharge Plan
-
Patient Disposition: Home with Home Care
Discharge Diagnosis/Procedures: salmonella enteritis
Condition: Good
Diet: As tolerated and Diabetic, Carb Controlled
Activity: With assistance and As tolerated
Additional Activity: home PT/OT
Driving Restrictions: As prior to admission
Bathing Restrictions: None
Blood Work: Get CBC labs 1 week after discharge and discuss with your primary care physician at appointment in about 1 week
Other Services: PT and OT
Activity Restrictions/Additional Instructions:
follow recommendations by home PT/OT
Referrals:
Jimbo Vega MD [Active, Gastroenterology]
Referral Note: s/p hospitalization for salmonella enteritis
Sanchez Marshall MD [Family Provider, [facility]]
Additional Discharge Medication Instructions: Prednisone: Continue 30mg prednisone tomorrow & (03/05-). Then, starting 03/07, taper prednisone dose by 10mg/day until 0mg.
Antibiotics: She received 4th dose of ceftriaxone on 03/04 IV. To finish out 7-day course, she should take 3 days of cefixime (400mg/day) with last dose on 03/07.
Triamcinolone: May apply up to BID for max 4 weeks, ideally 2 weeks on/2 weeks off if needed that long. Avoid applying to groin/genital or sensitive areas in thin skin folds.
Atarax: Only for emergency use with itching episodes as needed, not intended for long-term or routine use.
Prescriptions:
New
triamcinolone acetonide 0.025 % Ointment
1 applic topical BID Qty: 1 0RF
cefixime [Suprax] 400 mg capsule
400 mg PO DAILY Qty: 3 0RF
hydroxyzine HCl 10 mg Tablet
10 mg PO HS PRN (Reason: itching episodes) Qty: 7 0RF
prednisone 10 mg tablet
See Taper PO DAILY 4 Days Qty: 12 0RF
Taper: Prednisone DC Starting at 40 mg daily
30 mg Daily for 2 Days and 0 Hour
20 mg Daily for 1 Day and 0 Hour
10 mg Daily for 1 Day and 0 Hour
Rx Instructions:
Take 30mg daily for 2 days (03/05, 03/06). Then, 1 day of 20mg (03/07). Then, 1 day of 10mg (03/08).
Continued
aspirin 81 MG tablet,chewable
81 mg PO QPM
levothyroxine 25 MCG tablet
25 mcg PO DAILY
PreserVision AREDS-2 1 EACH capsule
1 ea PO BID
magnesium citrate 125 mg Capsule
125 mg PO QPM
Patient Comments:
pharm
gabapentin 300 MG capsule
300 mg PO BID
calcium carbonate-vitamin D3 [Calcium 600 + D(3)] 600 mg-10 mcg (400 unit) Tablet
1 tab PO DAILY
acetaminophen 650 mg Tablet Extended Release
1,300 mg PO Q8HPRN PRN (Reason: mild pain)
Visbiome 112.5 billion cell Capsule
1 cap PO DAILY
sodium bicarbonate 650 mg tablet
650 mg PO DAILY
sodium bicarbonate 650 mg tablet
1,300 mg PO QPM
pantoprazole 40 mg tablet,delayed release (DR/EC)
40 mg PO DAILY
insulin aspart U-100 [Novolog FlexPen U-100 Insulin] 100 unit/mL (3 mL) insulin pen
See Rx Instructions .ROUTE .COMPLEX PRN (Reason: If glucose is elevated pre meal)
Rx Instructions:
sliding scale AC
insulin degludec 100 unit/mL (3 mL) Insulin Pen
See Rx Instructions .ROUTE .COMPLEX
Rx Instructions:
sliding scale, daily
Held
prucalopride [Motegrity] 2 mg Tablet
2 mg PO DAILY
Hold Instructions: Resume on 03/11/25. Stools need to go back to formed or stopped completely with no diarrhea before restarting. If patient skips 2 days with no bowel movements, she can restart the laxatives early.
polyethylene glycol 3350 17 gram Powder In Packet
17 g PO QPM
Hold Instructions: Resume on 03/11/25. Stools need to go back to formed or stopped completely with no diarrhea before restarting. If patient skips 2 days with no bowel movements, she can restart the laxatives early.
simethicone 180 mg Capsule
180 mg PO DAILYPRN PRN (Reason: gas)
Hold Instructions: Resume on 03/11/25. Stools need to go back to formed or stopped completely with no diarrhea before restarting. If patient skips 2 days with no bowel movements, she can restart the laxatives early.
sennosides [senna] 8.6 mg Tablet
17.2 mg PO QPM
Hold Instructions: Resume on 03/11/25. Stools need to go back to formed or stopped completely with no diarrhea before restarting. If patient skips 2 days with no bowel movements, she can restart the laxatives early.
Discharge Orders:
Discharge Patient (As Directed); Ordered 03/04/25
Ordered By: Татьяна Apodaca
Discharge Date and Time
Discharge Date/Time: 03/04/25 16:13
Print Language: HAITIAN
[2025-03-04 15:09] VITALS: BP 127/67
== END 2025-03-04 16:13 | disposition home health service (06) | DRG 872 ==
LOC: 2 NORTH 18:30
PROVIDERS: Internal Medicine; Internal Medicine Gastroenterology; Nurse Practitioner Family; Nurse Practitioner Gerontology; Specialist; Student in an Organized Health Care Education/Training Program; ADMITTING PHYSICIAN Internal Medicine; ATTENDING PHYSICIAN Family Medicine; CONSULT PHYSICIAN Internal Medicine Gastroenterology; CONSULT PHYSICIAN Internal Medicine Infectious Disease; CONSULT PHYSICIAN Internal Medicine Nephrology; EMERGENCY PHYSICIAN Emergency Medicine; FAMILY PHYSICIAN Family Medicine
PROC: 0DBN8ZX Excision of Sigmoid Colon, Via Natural or Artificial Opening Endoscopic, Diagnostic (ICD-10-PCS; 2025-02-24)
DX: A41.9 Sepsis, unspecified organism (principal); A02.0 Salmonella enteritis; E87.1 Hypo-osmolality and hyponatremia; N17.9 Acute kidney failure, unspecified; N13.6 Pyonephrosis; E87.20 Acidosis, unspecified; Z68.1 Body mass index [BMI] 19.9 or less, adult; Z16.11 Resistance to penicillins; B02.29 Other postherpetic nervous system involvement; K63.8219 Small intestinal bacterial overgrowth, unspecified; E11.319 Type 2 diabetes mellitus with unspecified diabetic retinopathy without macular edema; E78.00 Pure hypercholesterolemia, unspecified; M54.30 Sciatica, unspecified side; E87.6 Hypokalemia; N18.31 Chronic kidney disease, stage 3a; E83.42 Hypomagnesemia; E11.22 Type 2 diabetes mellitus with diabetic chronic kidney disease; K76.9 Liver disease, unspecified; K64.8 Other hemorrhoids; K57.30 Diverticulosis of large intestine without perforation or abscess without bleeding; G89.29 Other chronic pain; R63.6 Underweight; I95.9 Hypotension, unspecified; K63.89 Other specified diseases of intestine; D63.1 Anemia in chronic kidney disease; B96.1 Klebsiella pneumoniae [K. pneumoniae] as the cause of diseases classified elsewhere; R74.01 Elevation of levels of liver transaminase levels; E03.9 Hypothyroidism, unspecified; E86.0 Dehydration; D72.10 Eosinophilia, unspecified; L27.0 Generalized skin eruption due to drugs and medicaments taken internally; T47.4X5A Adverse effect of other laxatives, initial encounter; Y92.230 Patient room in hospital as the place of occurrence of the external cause; Z66 Do not resuscitate; Z53.20 Procedure and treatment not carried out because of patient's decision for unspecified reasons; Z88.5 Allergy status to narcotic agent; Z79.82 Long term (current) use of aspirin; Z79.4 Long term (current) use of insulin; Z90.49 Acquired absence of other specified parts of digestive tract; Z79.890 Hormone replacement therapy
CPT/HCPCS: 74018; 80048; 80053; 81003; 81015; 82010; 82570; 82805; 82962; 83036; 83690; 83735; 84100; 84300; 85014; 85018; 85025; 85027; 87045; 87046; 87077; 87086; 87184; 87186; 87324; 87328; 87329; 87427; 87449; 87798; 88305; 96365; 97116; 97162; 97166; 97530; 97535; 99284; J7030